=== PATIENT | male | born 1990 | race Caucasian/White ===

== ENCOUNTER → 2017-05-17 | Outpatient (CLI) | payer OTHER ==
[~2017-05-17] MED LIST: LEVO500T3 PO; MECL-68 PO
--- NOTE | 2017-05-17 12:28 | REP ---
Clinical: Shortness of breath times 9 days. Technique: PA and lateral views of the chest. Comparison: 10/04/2016. Findings: Left lower lobe consolidations and pleural effusion/reaction consistent with acute pneumonia and linear plate-like atelectasis. Right hemithorax is clear. Cardiac silhouette is normal. Skeletal structures are intact. Impression: Left lower lobe consolidations and pleural effusion/reaction as well as trace linear atelectasis. Findings compatible with multifocal pneumonia. Signed by Johnnie Vicente MD 05/17/2017 12:19 P
== END ==
LOC: M RAD 11:23
PROVIDERS: ATTEND Physician Assistant
DX: J90 Pleural effusion, not elsewhere classified (principal)

== ENCOUNTER → 2017-05-17 | Outpatient (REF) | payer OTHER | LOC: M LAB REF 15:15 | PROVIDERS: ATTEND Physician Assistant | DX: R19.7 Diarrhea, unspecified (principal) ==

== ENCOUNTER 2017-05-20 11:37 | Inpatient (IN) | payer OTHER ==
[~2017-05-20] VITALS: Ht 188 cm; Wt 127.3 kg
[2017-05-20] MEDS ORDERED: MECL-68 PO (11:59)
[2017-05-20] MEDS ORDERED: LEVO500T3 PO (11:59)
[2017-05-20] MEDS ORDERED: NS 1,000 ML IV ONE (12:45)
--- NOTE | 2017-05-20 13:25 | REP ---
Clinical: Altered mental status . Comparison: None . Findings: The ventricles, sulci, and cisterns are normal in position and appearance. Nix-white differentiation is maintained. No acute intracranial hemorrhage, mass/mass effect, pathology or trauma/injury. No evidence for acute infarction. No extra-axial fluid collection. Calvarium is intact. Paranasal sinuses and mastoid air cells are clear. Impression: Normal noncontrast head CT. No evidence for acute intracranial pathology or trauma/injury. Signed by Johnnie Vicente MD 05/20/2017 01:16 P
--- NOTE | 2017-05-20 13:35 | REP ---
Clinical: Shortness of breath. Findings: Large left pleural effusion with near complete collapse to the left lower lobe and trace left upper lobe atelectasis. The right hemithorax demonstrates trace right middle lobe and right lower lobe atelectasis. Visualized portions of the heart and pericardium appear normal. There is inflammatory stranding involving the anterior mediastinal fat as well as significant inflammatory stranding throughout the visualized upper abdomen with left upper lobe ascites. Findings appears centered around the retroperitoneum and pancreas suggesting acute pancreatitis. Impression: 1. Large left pleural effusion with near complete consolidation / collapse to the left lower lobe and trace left upper lobe, right middle lobe and right lower lobe atelectasis. 2. Inflammatory stranding in the anterior mediastinal fat and visualized upper abdomen as described above most compatible with acute pancreatitis. Signed by Johnnie Vicente MD 05/20/2017 01:26 P
[2017-05-20 13:44] LABS: DIFF SLIDE NUMBER 128; MEAN CORPUSCULAR HEMOGLOBIN 31.7 pg (27.0-33.0); MEAN CORPUSCULAR HGB CONC 36.2 g/dl (32.0-36.5); MEAN CORPUSCULAR VOLUME 87.8 fl (80.0-96.0); PLATELET COUNT, AUTOMATED 423 k/mm3 (150-450); RED CELL DISTRIBUTION WIDTH 12.4 % (11.5-14.5); WHITE BLOOD COUNT 23.8 K/mm3 (4.0-10.0)
[2017-05-20 13:57] LABS: ALBUMIN 2.3 GM/DL (3.2-5.2); ALBUMIN/GLOBULIN RATIO 0.55 (1.00-1.93); ALKALINE PHOSPHATASE 174 U/L (45-117); ALT/SGPT 42 U/L (12-78); ANION GAP 11 MEQ/L (8-16); AST/SGOT 39 U/L (15-37); BILIRUBIN,DIRECT 0.5 MG/DL (0.0-0.2); BILIRUBIN,TOTAL 1.6 MG/DL (0.2-1.0); BLOOD UREA NITROGEN 21 MG/DL (7-18); CARBON DIOXIDE LEVEL 30 MEQ/L (21-32); CHLORIDE LEVEL 78 MEQ/L (98-107); CREATININE FOR GFR 1.18 MG/DL (0.70-1.30); GLOMERULAR FILTRATION RATE > 60.0 (>60); GLUCOSE, FASTING 148 MG/DL (70-105); TOTAL PROTEIN 6.5 GM/DL (6.4-8.2)
[2017-05-20 14:00] LABS: EOS % 0.3 % (0.0-3.0); LYMPH % 2.5 % (24.0-44.0); MONO % 4.8 % (0.0-5.0); NEUTROPHILS % 90.6 % (36.0-66.0)
[2017-05-20] MEDS ORDERED: HEPARIN SOD (PORCINE) 5000 UNITS/ML VIAL SC SCH (14:00)
[2017-05-20 14:01] LABS: ADD MANUAL DIFFER NO; ADD MORPHOLOGY? NO; BASO # 0.2 K/mm3 (0.0-0.2); BASO % 0.9 % (0.0-1.0); EOS # 0.1 K/mm3 (0.0-0.50); LARGE UNSTAINED CELL # 0.2 K/mm3 (0.0-0.4); LARGE UNSTAINED CELL % 0.8 % (0.0-4.0); LYMPH # 0.6 K/mm3 (1.5-6.5); MONO # 1.1 K/mm3 (0.0-0.8); NEUTROPHILS # 20.7 K/mm3 (1.8-7.7)
[2017-05-20 14:29] LABS: SODIUM LEVEL 119 MEQ/L (136-145)
[2017-05-20 14:30] LABS: POTASSIUM SERUM 2.3 MEQ/L (3.5-5.1)
[2017-05-20 14:43] LABS: METHADONE URINE NEGATIVE (NEGATIVE)
[2017-05-20] MEDS ORDERED: VANCOMYCIN 1000 MG/20 ML VIAL (J3370) IP ONE (14:45)
[2017-05-20] MEDS ORDERED: PIPERACILLIN/TAZOBACTAM SOD 4.5 GM in D5W MINI-BAG PLUS 50 ML IV ONE (14:45)
[2017-05-20] MEDS ORDERED: POTASSIUM CHLORIDE 10 MEQ SR TABLET PO ONE ×2 (14:45→17:00)
[2017-05-20] MEDS ORDERED: KCL 10MEQ IN 100ML SWI (KRUN) 10 MEQ in APPROPRIATE DILUENT 1 EA IV ONE ×2 (14:45)
[2017-05-20 15:12] LABS: AMYLASE 84 U/L (25-115)
[2017-05-20 15:33] LABS: OSMOLALITY SERUM 263 MOSM/KG (275-295)
[2017-05-20] MEDS ORDERED: VANCOMYCIN HCL 1,000 MG, VIAL MATE ADAPTER 1 EACH in D5W 250 ML IV ONE (16:00)
[2017-05-20] MEDS ORDERED: NS 1,000 ML IV SCH (16:29)
[2017-05-20] MEDS ORDERED: ONDANSETRON 4MG/2ML VIAL (J2405) IV PRN (16:30)
[2017-05-20] MEDS ORDERED: KCL 20MEQ IN 100ML SWI (KRUN) 20 MEQ in APPROPRIATE DILUENT 1 EA IV ONE ×2 (17:00)
[2017-05-20] MEDS: ACETAMINOPHEN TAB 650MG DOSE (2X325MG) PO PRN (17:14)
[2017-05-20 17:59] LABS: ANION GAP 13 MEQ/L (8-16); BLOOD UREA NITROGEN 20 MG/DL (7-18); CALCIUM LEVEL 7.5 MG/DL (8.5-10.1); CARBON DIOXIDE LEVEL 27 MEQ/L (21-32); CHLORIDE LEVEL 84 MEQ/L (98-107); CHOLESTEROL LEVEL 78 MG/DL (<200); CREATININE FOR GFR 0.97 MG/DL (0.70-1.30); GLOMERULAR FILTRATION RATE > 60.0 (>60); GLUCOSE, FASTING 132 MG/DL (70-105); MAGNESIUM LEVEL 2.5 MG/DL (1.8-2.4); POTASSIUM SERUM 2.8 MEQ/L (3.5-5.1); SODIUM LEVEL 124 MEQ/L (136-145); T UPTAKE 38 % (33-40); THYROXINE (T4) 7.9 UG/DL (4.5-12.0); TRIGLYCERIDES LEVEL 110 MG/DL (<150)
[2017-05-20] MEDS ORDERED: KCL 10MEQ IN 100ML SWI (KRUN) 100 ML IV SCH ×2 (18:00→19:00)
[2017-05-20 18:05] VITALS: BP 126/76
[2017-05-20 18:10] LABS: OSMOLALITY URINE 588 MOSM/KG (500-800)
[2017-05-20 18:10] LABS: OSMOLALITY SERUM 258 MOSM/KG (275-295)
[2017-05-20] MEDS: AZITHROMYCIN INJ 500 MG, VIAL MATE ADAPTER 1 EACH in D5W 250 ML IV SCH (18:50)
[2017-05-20 20:00] VITALS: PULSE 118
[2017-05-20 20:17] VITALS: BP 128/73
--- NOTE | 2017-05-20 21:27 | CR ---
DATE OF CONSULTATION: 05/20/2017 REQUESTING PHYSICIAN: Dr. Brock Cr from emergency room. REASON FOR CONSULTATION: Management of symptomatic hyponatremia. CHIEF COMPLAINT: The patient presented to the emergency room with confusion, altered mental status, and recent diagnosis of pneumonia. HISTORY OF PRESENT ILLNESS: ePdrito Chaudhari is a 26-year-old male with no significant past medical history. The patient does not have any primary care physician. He was otherwise healthy. He recently started working in road maintenance. The patient started feeling unwell about a week ago with fevers, some shortness of breath, and chills. He presented to the urgent care center and x-ray done on 05/17/2017, showed that the patient had multifocal pneumonia, and left pleural effusion. The patient was given Levaquin from urgent care center, and he was sent home. However, after starting the antibiotic, his symptoms did not improve. The patient got more lethargic, confused and obtunded. He was brought to the emergency room by his mother. On arrival in the emergency room, the patient was found to be septic with a white cell count of 23.8, a lactate of 2.3, and he was found to have a sodium level of 119 with a potassium of 2.3. Emergency room physician, Dr. Brock Cr , contacted me with these abnormal labs. The patient was discussed over the phone. After the discussion, the patient was given a bolus of normal saline one liter intravenous (IV) and started on broad-spectrum antibiotics and IV and oral potassium repletion was started. The patient required my immediate attention. I emergently saw the patient in the emergency room. When I saw the patient, he was able to provide his history and he was in mild respiratory distress. The patient was found to have a large left-sided pleural effusion on the CT scan of the chest with a near-complete collapse of the left lower lobe. He is otherwise hemodynamically stable at this time and he has sinus tachycardia. PAST MEDICAL HISTORY: No significant past medical history. He does not have a primary care physician. PAST SURGICAL HISTORY: The patient had grommet insertions in the ear because of otitis media when he was a child; otherwise, no other significant past surgical history. ALLERGIES: No known drug allergies. HOME MEDICATIONS: The patient was taking Levaquin 500 mg by mouth daily since 05/17/2017, and meclizine 25 mg by mouth every six hours for dizziness. FAMILY HISTORY: No significant family history of any kidney disease or end-stage renal disease requiring hemodialysis. SOCIAL HISTORY: The patient denies any smoking, illicit drug abuse or alcohol abuse. He recently started working in the [employer] department. REVIEW OF SYSTEMS: CONSTITUTIONAL: The patient reports chills, weakness, dizziness. EYES: He denies any blurry vision or double vision. ENT: The patient reports history of ear infections and dizziness. He denies any dysphagia or odynophagia. CARDIOVASCULAR: The patient reports palpitations. He denies any chest pain. RESPIRATORY: The patient reports cough and shortness of breath. GASTROINTESTINAL (GI): He denies any nausea, vomiting or constipation. GENITOURINARY (): The patient reports increased frequency of urine but he denies any dysuria or hematuria. MUSCULOSKELETAL: He denies any muscle aches and pains. CENTRAL NERVOUS SYSTEM (UNIFORM FORCE CAPTAIN): He denies any history of seizures or stroke, but he does report dizziness. PSYCHOLOGIC: He denies any history of anxiety or depression. SKIN: He denies any rashes or ulcers. ENDOCRINE: He denies any polyuria, hyperthyroidism or hypothyroidism. HEMATOLOGIC/ONCOLOGIC: The patient denies any history of easy bruising or anemia or bleeding. All other review of systems is negative. PHYSICAL EXAMINATION: GENERAL: The patient is awake, alert, oriented times three lying in bed in mild respiratory distress at this time. VITAL SIGNS: Temperature is 100.6 degrees Fahrenheit, blood pressure is 126/76, pulse is 112, respiratory rate of 24, saturating 92% on nasal cannula at two liters. HEAD/NECK: Extraocular muscles intact. Pupils equal, round, and reactive to light. The patient has erythema on the face. Mucous membranes are moist. Neck is supple. The is no jugular venous distention (JVD). CARDIOVASCULAR: S1, S2. Tachycardia. No murmur, rub, or gallop. RESPIRATORY: The patient has decreased breath sounds on the left side, especially on the left lower and middle lung zones. He has bronchial breath sounds on the left side. There is decreased vocal resonance on the left side as well. GI: Abdomen is soft. Positive bowel sounds. Nontender. No ascites, no organomegaly. GENITOURINARY: No rashes or ulcerations. MUSCULOSKELETAL: Extremities have 2+ pulses. No edema. No cyanosis of the extremities. UNIFORM FORCE CAPTAIN: No focal neurological deficit. Power is 5/5 in all extremities. PSYCHIATRIC: Normal mood and affect. SKIN: No rashes or ulcerations. LYMPHATIC: No significant cervical, axillary or inguinal lymphadenopathy. LABORATORY DATA: CBC showed a WBC of 23.8, hemoglobin 14.8, platelets are 423. Urinalysis showed 1+ protein, negative nitrites, negative leukocyte esterase. Urine random osmolarity was 588. Random sodium was less than 10. Free cortisol is pending. BMP showed sodium 119, potassium 2.3, chloride 78, bicarbonate 30, BUN 21, creatinine is 1.18. Serum osmolarity 263. Lactic acid was 2.3. Calcium is 8. Total bilirubin 1.6. Alkaline phosphatase is 174. Albumin 2.3. Lipase is 578. TSH is 4.7. Free T4 is three. T3 is 38. Baseline cortisol is pending. Toxicology: Salicylate is negative. Urine opiates are positive. Rest of the toxicology is negative. MICROBIOLOGY: Blood cultures, urine culture and respiratory viral panel is pending. Influenza is negative. IMAGING: A CT of the head done today showed no evidence of acute intracranial pathology. A CT of the chest showed large left pleural effusion with near-complete consolidation or collapse of left lower lobe. Inflammatory stranding in the anterior mediastinal fat and visualized upper abdomen, compatible with acute pancreatitis. ASSESSMENT: A 26-year-old male with no significant past medical history admitted this time with left-sided pneumonia with a large left-sided pleural effusion, possible pancreatitis, and symptomatic hyponatremia. PLAN: 1. Hypovolemic, hypotonic, hyponatremia with high urine osmolarity, very low urine sodium. The patient was already given one liter normal saline in the emergency room and started on IV normal saline. His sodium corrected from 119 to 124. I am going to stop the IV fluids at this time. I am expecting that with IV fluid hydration, his sodium is going to correct. The patient is otherwise hemodynamically stable. No need of further IV fluid hydration. Continue to monitor the basic metabolic profile (BMP) every six hours for the sake of completion. We have checked the thyroid stimulating hormone (TSH) which is within the acceptable limit. Cholesterol levels are also acceptable. Baseline cortisol and a.m. cortisol levels are pending. 2. Sepsis secondary to left-sided pneumonia and parapneumonic effusion. The patient was given normal saline IV. He has been started on azithromycin, Zosyn and vancomycin for broad-spectrum coverage including atypicals. Cultures have already been sent. 3. Left left-sided pleural effusion. The patient is pending evaluation by cardiothoracic (CT) surgery for possible placement of chest tube. The rest of the management is as per CT surgery. Pleural fluid analysis and studies will be done after chest tube is placed. 4. Hypokalemia. The patient was given IV and oral potassium. Management of hypokalemia would also help with hyponatremia. Continue to monitor BMP every six hours and we shall replete potassium as needed. He will need at least 100 mEq of potassium over the next 24 hours. 5. Possible pancreatitis: Cont IV fluid. NPO. Pain management. 6. Hypermagnesemia. Magnesium level is 2.5 which is acceptable at this time. Magnesium is expected to improve with improvement of sepsis and hypovolemia. Thank you for involving us in the care of this patient. I shall be happy to follow the patient along with you tomorrow morning. JONOD
--- NOTE | 2017-05-20 21:28 | ECGEPIP ---
Stationary ECG Study [facility] - ED Test Date: 2017-05-20 Pat Name: FLYNN DUBOSE Department: Room: - Gender: M [employer] Architect: SHANON : 1990 Requested By: PERRY Barboza Order Number: [id number] Reading MD: Tania Moe Measurements Intervals [place] Rate: 116 P: MI: 0 QRS: 7 QRSD: 128 T: 122 QT: 373 QTc: 519 Interpretive Statements SINUS TACHYCARDIA LEFT VENTRICULAR HYPERTROPHY AND ST-T CHANGE SEPTAL CHANGES CLINICAL CORRELATION NO PRIOR FOR COMPARISON Electronically Signed On 05-20-2017 21:28:39 EDT by Tania Moe
[2017-05-20 21:35] LABS: ANION GAP 12 MEQ/L (8-16); BLOOD UREA NITROGEN 22 MG/DL (7-18); CALCIUM LEVEL 8.1 MG/DL (8.5-10.1); CARBON DIOXIDE LEVEL 27 MEQ/L (21-32); CHLORIDE LEVEL 84 MEQ/L (98-107); CREATININE FOR GFR 1.07 MG/DL (0.70-1.30); GLOMERULAR FILTRATION RATE > 60.0 (>60); GLUCOSE, FASTING 147 MG/DL (70-105); POTASSIUM SERUM 2.4 MEQ/L (3.5-5.1); SODIUM LEVEL 123 MEQ/L (136-145)
--- NOTE | 2017-05-20 22:07 | HPE ---
DATE OF ADMISSION: 05/20/2017 PRIMARY CARE PHYSICIAN: Patient does not have a primary care physician. CHIEF COMPLAINT: Shortness of breath, diarrhea, altered mental status. HISTORY OF PRESENT ILLNESS: Mr. Chaudhari is a 26-year-old male with no past medical history who presented to the emergency room (ER) due to experiencing shortness of breath, diarrhea and altered mental status. Patient expressed that his symptoms started on Monday when he noticed that he was more out of breath. Patient denies coughing, productive of sputum. Patient also expressed that he felt more fatigued and tired. Patient went to urgent care on Monday, where he was diagnosed with pneumonia and was started on Levaquin 500 mg by mouth daily. Also, patient was started on meclizine 25 mg by mouth every 6 hours as needed, since patient felt mild dizziness and lightheadedness. Patient expressed on morning, he was not himself and he had one episode of hallucinating, when he thought he heard a noise and thought somebody was in the kitchen; however, nobody was in the kitchen. Patient's confusion was increased since and this morning, patient was moving his hands and reaching for stars. Since , patient was making some comments to his mother which indicated that patient had altered mental status. Patient does not know if he had fever; however, patient did not have chills or night sweats. Patient did not have nausea or vomiting. Patient tried to keep himself hydrated and was tolerating orals; however, patient had lost his appetite. Patient did not have seizure- like activities, loosing consciousness. Patient denied vision or hearing changes. Patient did not have any sick contacts. Patient also expressed that since Monday, he has been having diarrhea, about two episodes per day. Patient is currently with loose stool; however, patient denies noticing hematochezia. Patient also expressed that his shortness of breath increases with laying down flat; however, decreases with sitting upright. ALLERGIES: No known allergies. HOME MEDICATIONS: - Levaquin 500 mg by mouth for 10 days - meclizine 25 mg by mouth every 6 hours by mouth as needed for dizziness PAST MEDICAL HISTORY: None. PAST SURGICAL HISTORY: Ear tubing at age 1. SOCIAL HISTORY: Patient lives with his girlfriend. Patient has no children. Patient has not traveled outside the [place]. Patient works for the [employer], works on the [employer]. Patient has no pets. Patient does not drink alcoholic beverages. Patient does not smoke cigarettes; however, patient had chewed tobacco but has stopped chewing tobacco four months ago. Patient was chewing tobacco about five years. One can lasted him a month. FAMILY HISTORY: Patient has one sister who has been on a steroid and antibiotic due to respiratory infection. Patient's father has been diagnosed with hypertension, hyperlipidemia and diabetes. Patient's mother is healthy. REVIEW OF SYSTEMS: GENERAL: Patient denies chills, night sweats. Patient does not know if he had fever. Patient denies weight loss, weight gain. HEENT: Patient denies acute vision or hearing changes. Patient denies problems with chewing food, sinusitis. NECK: Patient denies lumps, bumps, or decreased range of motion of his neck. HEART: Patient denies palpitations, racing or skipping heartbeat or chest pain. LUNGS: Patient expressed that he has been having dyspnea. This is increased with laying down flat and decreased with sitting position. ABDOMEN: Patient denies nausea, vomiting, constipation. Patient has had diarrhea since Monday, about two episodes of loose stool; however, patient denies hematochezia or melena. NEUROLOGIC: Patient denies history of transient ischemic attack (TIA) or seizure-type activities. PHYSICAL EXAMINATION: VITAL SIGNS: Temperature 98.4, pulse 127, respiratory rate 18, blood pressure 136/66, pulse oximetry 93% on room air. GENERAL APPEARANCE: Patient was lying in bed in acute distress. Patient was awake, alert, and oriented to time, person and place. HEENT: Normocephalic, atraumatic. Pupils were equal and reactive to light. Oral mucosa was moist. Patient's has erythema on his face, which, according to his mom, this is a chronic issue due to patient working outside for long hours. NECK: No lymphadenopathy. No thyromegaly. No jugular venous distention (JVD). HEART: Regular rate and rhythm, normal S1, S2. LUNGS: Patient has diminished breath sounds bilaterally at the base of the lungs. ABDOMEN: Soft, nontender. Positive bowel sounds in all quadrants. EXTREMITIES: No lower extremity edema. +2 pulses in both lower extremities. Normal range of motion both upper and lower extremities. NEUROLOGIC: Cranial nerves II-XII were intact. No focal deficiencies. LABORATORY DATA: White blood cells 23.8, red blood cells 4.66, hemoglobin 14.8, hematocrit 40.9, MCV 87.8, MCH 31.7, MCHC 36.2, RDW 12.4, platelet count 243, neutrophil percentage 98.6, lymphocyte percentage 2.5, monocyte percentage 4.8, eosinophil percentage 0.3, basophil percentage 0.9, leukocyte percentage 0.8. Sodium 119, potassium 2.3, chloride 78, carbon dioxide 30, anion gap 11, BUN 21, creatinine 1.18, glomerular filtration rate more than 60, fasting glucose 148, Osmolality 263. Lactic acid 2.3. Calcium 8. Total bilirubin 1.6, direct bilirubin 0.8, AST 39, ALT 42. Total creatinine kinase 114. CK-MB 0.1. CK-MB rel index 0.87. Troponin-I less than 0.02. Total protein 6.5, albumin 2.3, amylase 84, lipase 578. TSH 4.720. Urinalysis (UA): Urine color yellow, urine appearance clear, urine pH 6, urine specific gravity 1.018, urine protein 1+, urine glucose negative, urine ketones trace, urine blood negative, urine nitrate negative, urine bilirubin negative, urine bilinogen 0.3, urine leukocyte esterase negative, urine white blood cells 7, urine red blood cells 2, urine hylan casts 0, urine bacteria negative, urine squamous epithelial cells 0. TOXICOLOGY: Salicylate level less than 1.7. Urine opiate screen positive. Urine methadone screen negative. Acetaminophen less than 2. The rest of the panel was negative. Blood culture is pending. Urine culture is pending. IMAGING TECHNIQUES: CT of the head shows normal, noncontrast head CT. No evidence of acute intracranial pathology or trauma injury. Chest x-ray shows large left pleural effusion with near complete consolidation/ collapse to the left lower lobe and trace left upper lobe, right middle lobe and right lower lobe atelectasis. Also, is indicated, inflammatory stranding in the anterior mediastinal fat and visualized upper abdomen is compatible with acute pancreatitis. ASSESSMENT AND PLAN: 1. Shortness of breath. This is possibly secondary to atypical pneumonia. CT of the chest indicated large left pleural effusion. We have consulted Dr. Kat. We made the patient nothing by mouth (n.p.o.) due to possibility of procedure, including chest tube. At this time, we have started patient on azithromycin and Zosyn due to possibility of atypical pneumonia. Also, we have ordered a sputum gram and culture, as well as a respiratory panel. Blood culture is pending at this time. Also, I have ordered a urine strip pneumonia, as it has Legionella antigen urine and the result is pending. 2. Hyponatremia. This could be secondary to syndrome of inappropriate anti-diuretic hormone (SIADH) vs. endocrine. Dr. Flores has been consulted. We have ordered urine and blood osmolality, as it has urine sodium and results are pending. Also, we have ordered cortisol urine and serum as well as a.m. cortisol and the results are pending at this time. Patient has received 1 liter of normal bolus at emergency room (ER). At this time, we have started patient on normal saline at the rate of 80. Also, we will check basic metabolic panel every 4 hours and for evaluating increasing of the sodium level. Also, we have made the patient nothing by mouth. 3. Elevated lactic acid. At the ER, patient's lactic acid was elevated (2.3). SOFA indicated low possibility of sepsis; however, at this time, patient is on intravenous (IV) antibiotics. Also, we have started patient on IV fluids. Lactic acid will be repeated again in four hours. I believe this is secondary to stress and dehydration. 4. Hypokalemia. This could be secondary to diarrhea. At this time, we are providing patient with potassium supplements. We are rechecking the potassium level again. 5. Deep venous thrombosis (DVT) prophylaxis. At this time, we have started patient on thromboembolitic deterrents (TEDs) and sequentials due to the possibility of procedure; however, after procedure, patient can be started on anticoagulation. 6. Pancreatitis. CT findings indicated possibility of pancreatitis. Patient also has elevated lipase (578). However, patient is asymptomatic at this time. Patient is nothing by mouth and on IV fluids. We will repeat the lipase again tomorrow. This could be secondary to infection. 7. Elevated thyroid stimulating hormone (TSH). We will repeat a TSH again. Also, we will repeat a thyroid panel. No medication is required. My preceptor for this patient encounter was Dr. Grover. The preceptor was physically present in the building during the encounter and was fully available as needed. All aspects of the patient interview, examination, medical decision-making process, and medical care plan development were reviewed and approved by the preceptor. The preceptor is aware and concurs with the plan as stated in the body of this note and will attest to such by his/her co-signature. I have seen and examined the patient, and discussed the case with the resident. I agree with the following assessment mentioned above. RJ
[2017-05-20] MEDS: PIPERACILLIN/TAZOBACTAM SOD 3.375 GM in D5W MINI-BAG PLUS 50 ML IV SCH (23:19)
[2017-05-20 23:36] VITALS: BP 135/72
[2017-05-21] VITALS: PULSE 112
[2017-05-21] MEDS: ACETAMINOPHEN TAB 650MG DOSE (2X325MG) PO PRN ×2 (00:02→08:10)
[2017-05-21 01:13] LABS: ANION GAP 11 MEQ/L (8-16); BLOOD UREA NITROGEN 19 MG/DL (7-18); CARBON DIOXIDE LEVEL 29 MEQ/L (21-32); CHLORIDE LEVEL 86 MEQ/L (98-107); CREATININE FOR GFR 1.03 MG/DL (0.70-1.30); GLOMERULAR FILTRATION RATE > 60.0 (>60); GLUCOSE, FASTING 183 MG/DL (70-105); POTASSIUM SERUM 2.6 MEQ/L (3.5-5.1); SODIUM LEVEL 126 MEQ/L (136-145)
[2017-05-21] MEDS ORDERED: POTASSIUM CHLORIDE 10 MEQ SR TABLET PO ONE (01:45)
[2017-05-21] MEDS: KCL 10MEQ IN 100ML SWI (KRUN) 10 MEQ in APPROPRIATE DILUENT 1 EA IV SCH ×12 (02:01→11:06)
[2017-05-21 04:00] VITALS: PULSE 107
[2017-05-21] MEDS: PIPERACILLIN/TAZOBACTAM SOD 3.375 GM in D5W MINI-BAG PLUS 50 ML IV SCH (04:30)
[2017-05-21 04:41] VITALS: BP 131/87
[2017-05-21 05:18] LABS: ADD MANUAL DIFFER YES; DIFF SLIDE NUMBER 55; MEAN CORPUSCULAR HEMOGLOBIN 31.8 pg (27.0-33.0); MEAN CORPUSCULAR HGB CONC 35.9 g/dl (32.0-36.5); MEAN CORPUSCULAR VOLUME 88.7 fl (80.0-96.0); PLATELET COUNT, AUTOMATED 388 k/mm3 (150-450); RED CELL DISTRIBUTION WIDTH 12.3 % (11.5-14.5); WHITE BLOOD COUNT 22.5 K/mm3 (4.0-10.0)
[2017-05-21 05:34] LABS: ALBUMIN/GLOBULIN RATIO 0.49 (1.00-1.93); ALKALINE PHOSPHATASE 165 U/L (45-117); ALT/SGPT 44 U/L (12-78); AST/SGOT 43 U/L (15-37); BILIRUBIN,TOTAL 1.5 MG/DL (0.2-1.0); BLOOD UREA NITROGEN 18 MG/DL (7-18); CALCIUM LEVEL 8.3 MG/DL (8.5-10.1); CARBON DIOXIDE LEVEL 30 MEQ/L (21-32); CHLORIDE LEVEL 87 MEQ/L (98-107); CREATININE FOR GFR 1.02 MG/DL (0.70-1.30); GLOMERULAR FILTRATION RATE > 60.0 (>60); GLUCOSE, FASTING 137 MG/DL (70-105); MAGNESIUM LEVEL 2.2 MG/DL (1.8-2.4); TOTAL PROTEIN 6.1 GM/DL (6.4-8.2)
[2017-05-21 05:40] LABS: ANION GAP 8 MEQ/L (8-16); SODIUM LEVEL 125 MEQ/L (136-145)
[2017-05-21 05:43] LABS: POTASSIUM SERUM 4.2 MEQ/L (3.5-5.1)
[2017-05-21 06:09] LABS: BANDS 5 % (< 11); BASOPHILS 1 % (0-4); EOSINOPHILS 2 % (0-5)
[2017-05-21 06:11] LABS: TOXIC GRANULATION 2+; TOXIC VACUOLATION 1+
[2017-05-21 07:30] VITALS: BP 133/79
[2017-05-21] MEDS: POTASSIUM CHLORIDE 10 MEQ SR TABLET PO SCH ×3 (08:09→17:38)
[2017-05-21] MEDS: MEROPENEM INJ 1 GM in D5W MINI-BAG PLUS 100 ML IV SCH ×2 (08:10→16:03)
[2017-05-21 08:47] LABS: ANION GAP 9 MEQ/L (8-16); BLOOD UREA NITROGEN 18 MG/DL (7-18); CALCIUM LEVEL 8.4 MG/DL (8.5-10.1); CARBON DIOXIDE LEVEL 29 MEQ/L (21-32); CHLORIDE LEVEL 87 MEQ/L (98-107); CREATININE FOR GFR 1.03 MG/DL (0.70-1.30); GLOMERULAR FILTRATION RATE > 60.0 (>60); GLUCOSE, FASTING 138 MG/DL (70-105); SODIUM LEVEL 125 MEQ/L (136-145)
[2017-05-21] MEDS: VANCOMYCIN HCL 1,000 MG, VIAL MATE ADAPTER 1 EACH in D5W 250 ML IV SCH ×3 (09:57→20:36)
[2017-05-21] MEDS ORDERED: VANCOMYCIN HCL 1,000 MG, VIAL MATE ADAPTER 1 EACH in D5W 250 ML IV ONE (10:00)
[2017-05-21] MEDS ORDERED: MIDAZOLAM INJ 2 MG/2 ML VIAL (J2250) As Ordered ONE (11:38)
[2017-05-21] MEDS ORDERED: LIDOCAINE 1% MDV 20ML VIAL As Ordered ONE ×2 (11:39→11:54)
--- NOTE | 2017-05-21 12:47 | REP ---
Clinical: Status post chest tube placement. Comparison 05/17/2017. Findings: Left-sided chest tube overlies the mid lung zone. Left lower lobe opacities are appreciated and small pneumothorax cannot be excluded. Trace right basilar atelectasis. No pneumothorax. Impression: Left-sided chest tube with decreased left mid to lower lobe opacities and possible small left pneumothorax. Signed by Johnnie Vicente MD 05/21/2017 12:39 P
[2017-05-21] MEDS: KCL 20MEQ in NS 1000ML 1,000 ML IV SCH (12:55)
[2017-05-21] MEDS ORDERED: LIDOCAINE 1% MDV 20ML VIAL SC ONE (13:00)
[2017-05-21] MEDS ORDERED: MIDAZOLAM INJ 2 MG/2 ML VIAL (J2250) IV ONE (13:00)
[2017-05-21] MEDS ORDERED: LEVALBUTEROL 1.25 MG/0.5 ML CONCENTRATE NEB NEB PRN (13:15)
[2017-05-21 13:20] LABS: ANION GAP 9 MEQ/L (8-16); BLOOD UREA NITROGEN 16 MG/DL (7-18); CALCIUM LEVEL 8.1 MG/DL (8.5-10.1); CARBON DIOXIDE LEVEL 27 MEQ/L (21-32); CHLORIDE LEVEL 91 MEQ/L (98-107); CREATININE FOR GFR 0.92 MG/DL (0.70-1.30); GLOMERULAR FILTRATION RATE > 60.0 (>60); GLUCOSE, FASTING 144 MG/DL (70-105); POTASSIUM SERUM 3.4 MEQ/L (3.5-5.1); SODIUM LEVEL 127 MEQ/L (136-145)
[2017-05-21] MEDS: LEVALBUTEROL 1.25 MG/0.5 ML CONCENTRATE NEB NEB SCH ×2 (13:28→20:00)
[2017-05-21 13:58] LABS: LDH, BODY FLUID 938 U/L (NOT ESTABLISHED); TOTAL PROTEIN, BODY FLUID 3.8 G/DL (NOT ESTABLISHED)
[2017-05-21 14:04] LABS: BF DIFF IF INDICATED? YES (NO); RBC PLEURAL FLUID 11 (<10mm3 cells/uL); TNC PLEURAL FLUID 4456 cells/uL (0-20)
--- NOTE | 2017-05-21 14:25 | PHACANCOPD ---
PHARMACY VANCOMYCIN DOSING Pt Demographics Demographics Patient Age:26 , Weight:129.500 , Gender: male Adjusted Body Weight Date: 05/21/17, Adjusted Body Weight: Kg Events Past 24 Hours Events Past 24 Hours: YES: Fever, Elevation in WBC, NO: Dialysis, Diuretic Therapy, Change in CrCl, Pending Diagnostics, Pending Procedures, Other Vancomycin Vancomycin indication: HCAP Vancomycin Target Ranges: 15-20 mcg/ml Vancomycin Load Y/N: Yes Load Dose Date Time Vancomycin Load Dose: 2000mg Date: 05/21/17 Time: 900 Vancomycin Dose Date: 05/21/17. Current Vancomycin Dose: [1gm IV q6h@09] Intermittent Dosing?: No Labs Labs Item Value Date Time Potassium Level 2.6 MEQ/L *L 05/21/17 0038 Potassium Level 3.4 MEQ/L L 05/21/17 1251 Sodium Level 126 MEQ/L L 05/21/17 0038 Sodium Level 127 MEQ/L L 05/21/17 1251 Creatinine 1.03 MG/DL 05/21/17 0809 Creatinine 0.92 MG/DL 05/21/17 1251 Lactic Acid Level 1.7 MMOL/L 05/21/17 0809 White Blood Count 23.8 K/mm3 H 05/20/17 1309 White Blood Count 22.5 K/mm3 H 05/21/17 0430 Vital Signs Label Value Date Time Patient Temperature 101.5 degrees F 05/21/17 0730 Temperature Source Temporal 05/21/17 0730 Micro Microbiology 05/20/17 Blood Culture - Preliminary, Resulted No growth after 24 hours . All specim... 05/20/17 Blood Culture - Preliminary, Resulted No growth after 24 hours . All specim... 05/21/17 Acid Fast Stain, Received Pending 05/21/17 Mycobacterial Culture, Received Pending 05/21/17 Fungal Smear, Received Pending 05/21/17 Fungal Culture, Received Pending 05/21/17 Gram Stain, Received Pending 05/21/17 Anaerobic Culture, Received Pending 05/21/17 Body Fluid Culture, Received Pending 05/20/17 Influenza Virus Type A Antigen - Final, Complete 05/20/17 Influenza Virus Type B Antigen - Final, Complete 05/20/17 Respiratory Virus Panel (PCR) (JORGE) - Final, Complete 05/20/17 Urine Culture - Final, Complete Creatinine Clearance Date:05/21/17. Creatinine Clearance: . Assessment and Plan Maintaining Current Dose?: Yes Reason for dose change: No Dose Change Pharmacist Note Pharmacist Note Date: 05/21/17. Pharmacist note: Patient was brought to the Emergency Department by his mother for increased mental status. Monday he presented to an Urgent Care for increased SOB, diarrhea, altered mental status, and increased fatigue. He was given Levaquin and Meclizine and discharged home. Since then his mental status as decreased with experiencing hallucinations. He has no significant past medical history. His chest XRay showed a large pleural effusion with a near collapsed left lung. Also showed possible pancreatitis. He currently has blood and pleural fluid cultures pending, and his urine culture and respiratory panel was negative. He had a chest tube placed today by Dr. Kat as well. He is currently on Zithromax, Meropenem, and Vancomycin for the treatment of his pneumonia. He has no history of MRSA or Vancomycin use at our facility. The patient was loaded with Vancomycin 2000mg, then continued on 1000mg IV q6h for now. We will continue to monitor and make adjustments as necessary. SUZANNE MARTINEZ PHARMACY May 21, 2017 14:25
[2017-05-21 14:42] LABS: CC BF DIFF EXAM CYTOCENTRIFUGE
[2017-05-21] MEDS: PERCOCET 5MG/325MG TAB PO PRN ×2 (14:50→20:36)
--- NOTE | 2017-05-21 14:55 | IPNPDOC ---
Text Note Date of Service The patient was seen on 05/21/17. NOTE Subjective: Patient is a 26 year old male with no PMHx who presented to the ER with shortness of breath, diarrhea and confusion. Patient's family and girlfriend has provided details to his history. They have mentioned that he had nausea and vomiting that started on 05/13 that improved and then progressed to diarrhea and shortness of breath on 05/15. By 05/16 he had gone to the urgent care and received antibiotics, Levaquin. He began to have some confusion at home and was brought into the ER for further evaluation. He was found to have several electrolyte abnormalities, and bilateral infiltrate with effusions on chest CT. He was admitted to the hospitalist service for sepsis. Patient was seen and examined at the bedside. Currently he is no longer confused. Is feeling generally better, but still has some shortness of breath. Objective: Vitals (See below) General: Lying in bed, no acute distress, comfortable, AAOx3 HEENT: NC, AT CVS: Tachycardic, Regular rhythm, +S1S2 Lungs: Decreased lung sounds at left lung field Abdomen: Soft, ND, NT, +BSx4 Extremities: +PPx4, - Edema, - Calf tenderness Assessment and plan: 1. Acute hypoxic respiratory failure - likely 2/2 atypical pneumonia with parapneumonic effusion - Presented with SOB and failure of outpatient therapy with Levaquin - Physical with decreased breath sounds at left lung field - Leukocytosis unchanged, will follow CRP - CT chest 05/20: large left pleural effusion with complete consolidation / collapse of LLL and trace HILDA, RML and RLL atelectasis - Dr. Kat on consult for likely chest tube placement - c/w Meropenem / Azithromycin / Vancomycin; s/p Zosyn 2. s/p Acute Metabolic Encephalopathy 3. Hyponatremia - likely 2/2 hypovolemic, hypotonic, hyponatremia - Sodium has been improving appropriately - c/w BMP [id number] to ensure slow rate of rise - Fluid management by Nephrology - Dr. Flores (Nephrology) on consult 3. s/p Lactic acidosis 4. Hypokalemia - will c/w Supplementation 5. Possible pancreatitis - less likely - Clinically no abdominal pain, nausea or vomiting - Physical without any abdominal tenderness - Lipase not elevated to >3x ULN; mild elevation likely 2/2 nausea and vomiting - CT imaging consistent with pancreatitis - Will advance diet as tolerated 6. Elevated TSH - Will need to be repeated in 6 weeks 7. DVT prophylaxis - c/w SCDs VS,Fishbone, I+O VS, Fishbone, I+O Laboratory Tests 05/20/17 17:04 05/20/17 20:38 Calcium Level 8.1 L 05/21/17 00:38 Calcium Level 8.0 L 05/21/17 04:30 Calcium Level 8.3 L, Red Blood Count 4.23 L, Mean Corpuscular Volume 88.7, Mean Corpuscular Hemoglobin 31.8, Mean Corpuscular Hemoglobin Concent 35.9, Red Cell Distribution Width 12.3, Aspartate Amino Transf (AST/SGOT) 43 H, Alanine Aminotransferase (ALT/SGPT) 44, Alkaline Phosphatase 165 H, Total Bilirubin 1.5 H, Total Protein 6.1 L, Albumin 2.0 L 05/21/17 08:09 Calcium Level 8.4 L 05/21/17 12:51 Calcium Level 8.1 L Vital Signs Date Time Temp Pulse Resp B/P (MAP) Pulse Ox O2 Delivery O2 Flow Rate FiO2 05/21/17 11:45 Nasal Cannula 2.0 05/21/17 07:30 101.5 112 18 133/79 (97) 96 I&O- Last 24 Hours up to 6 AM 05/21/17 06:00 Intake Total 2200 ml Output Total 300 ml Balance 1900 ml MICHELE GONZALES MD May 21, 2017 14:55
[2017-05-21 16:00] VITALS: BP 128/74
[2017-05-21 17:05] LABS: ANION GAP 8 MEQ/L (8-16); BLOOD UREA NITROGEN 14 MG/DL (7-18); CARBON DIOXIDE LEVEL 28 MEQ/L (21-32); CHLORIDE LEVEL 91 MEQ/L (98-107); CREATININE FOR GFR 0.93 MG/DL (0.70-1.30); GLOMERULAR FILTRATION RATE > 60.0 (>60); GLUCOSE, FASTING 192 MG/DL (70-105); POTASSIUM SERUM 3.4 MEQ/L (3.5-5.1); SODIUM LEVEL 127 MEQ/L (136-145)
[2017-05-21] MEDS: AZITHROMYCIN INJ 500 MG, VIAL MATE ADAPTER 1 EACH in D5W 250 ML IV SCH (17:38)
[2017-05-21 21:14] LABS: ANION GAP 9 MEQ/L (8-16); BLOOD UREA NITROGEN 15 MG/DL (7-18); CALCIUM LEVEL 8.5 MG/DL (8.5-10.1); CARBON DIOXIDE LEVEL 28 MEQ/L (21-32); CHLORIDE LEVEL 91 MEQ/L (98-107); GLOMERULAR FILTRATION RATE > 60.0 (>60); GLUCOSE, FASTING 128 MG/DL (70-105); POTASSIUM SERUM 3.5 MEQ/L (3.5-5.1); SODIUM LEVEL 128 MEQ/L (136-145)
[2017-05-21 21:30] VITALS: BP 132/79
[2017-05-21] MEDS ORDERED: POTASSIUM CHL PWD 20 MEQ PACKET PO ONE (21:45)
[2017-05-22] VITALS (7 sets, daily range): BP systolic 113–139; BP diastolic 72–94
[2017-05-22] MEDS: MEROPENEM INJ 1 GM in D5W MINI-BAG PLUS 100 ML IV SCH ×3 (00:39→17:45)
[2017-05-22 01:20] LABS: ANION GAP 8 MEQ/L (8-16); BLOOD UREA NITROGEN 15 MG/DL (7-18); CALCIUM LEVEL 8.3 MG/DL (8.5-10.1); CARBON DIOXIDE LEVEL 28 MEQ/L (21-32); CHLORIDE LEVEL 94 MEQ/L (98-107); CREATININE FOR GFR 1.06 MG/DL (0.70-1.30); GLOMERULAR FILTRATION RATE > 60.0 (>60); GLUCOSE, FASTING 154 MG/DL (70-105); POTASSIUM SERUM 3.8 MEQ/L (3.5-5.1); SODIUM LEVEL 130 MEQ/L (136-145)
[2017-05-22] MEDS: KCL 20MEQ in NS 1000ML 1,000 ML IV SCH ×2 (01:56→04:30)
--- NOTE | 2017-05-22 01:56 | IPN ---
DATE OF SERVICE: 05/21/2017 SUBJECTIVE: Patient was seen and examined at the bedside today morning. Last 24-hour events were noted. Labs were reviewed. Patient's sodium is stable, at around 125. Patient was evaluated by cardiothoracic (CT) surgery. He is going to have his left-sided chest tube placed. Patient reports that he is feeling almost the same as compared with yesterday. Patient is oliguric at this time. REVIEW OF SYSTEMS: Patient reports fevers. He denies chills and rigors. Patient reports mild left-sided chest pain. He does report some shortness of breath, as well. He also reports that he is hungry, and he is nothing by mouth since yesterday for the procedure. He is also reporting some loose stools. Rest of review of systems is negative. OBJECTIVE: VITAL SIGNS: Maximum temperature (Tmax) is 101.5 degrees Fahrenheit. Blood pressure is 133/79. Pulse is 112. Respiratory rate of 18. Saturating 96% on nasal cannula at 2 liters. INTAKE AND OUTPUT: Urine output recorded as 350 mL so far. Weight on the bed scale is 129.5 kg. PHYSICAL EXAM: GENERAL: Patient is awake, alert, oriented times three, lying in bed, in mild respiratory distress. HEAD AND NECK EXAM: Extraocular muscles intact. Pupils equally round and reactive to light. Patient has erythema of the face. Mucous membranes are moist. Neck is supple. There is no jugular venous distention (JVD). CARDIOVASCULAR: S1, S2, tachycardia. No murmur, rub, or gallop. RESPIRATORY: Patient has decreased breath sounds on the left side. Decreased vocal resonance on the left side, and he has bronchial breath sounds on the left upper lobes. ABDOMEN: Is soft. Positive bowel sounds. Nontender. No ascites. No organomegaly. MUSCULOSKELETAL: Pulses are 2+ in the extremities. No edema. No cyanosis of the extremities. CENTRAL NERVOUS SYSTEM (MACHIN[employer]): No focal neurological deficit. Power is 5/5 in all extremities. LAB REVIEW: CBC showed a WBC of 22.5, hemoglobin 13.5, platelets at 388. BMP done today morning showed a sodium of 125, potassium is 3, chloride 87, bicarbonate 29, BUN 18, creatinine is 1.03, calcium 8.4. Microbiology: Blood cultures are pending so far. Urine culture is negative. CURRENT INPATIENT MEDICATIONS: Patient's medications were all reviewed by me. He was given potassium chloride intravenously (IV), and two doses of potassium chloride 40 mEq by mouth today morning and today afternoon have also been ordered. I have started the patient on potassium chloride (KCl) 20 mEq in normal saline at 125 mL/h. He has also been started on meropenem 1 gram IV every 8 hours. ASSESSMENT: 26-year-old male with no significant past medical history admitted this time because of large left-sided pleural effusion and left-sided pneumonia along with symptomatic hyponatremia. PLAN: 1. Hypovolemic hypotonic hyponatremia. Patient's urine sodium improved from 119 to 125 over the last 24 hours. Now, I am going to start the patient on normal saline at 125 mL/h. Continue the serial basic metabolic panel (BMP) monitoring. I am expecting that patient's sodium level would improve to more than 130 within the next 24 hours. 2. Hypokalemia. Patient also already got two doses of potassium chloride 40 mEq by mouth times two. I have also added the potassium to intravenous (IV) fluids, as well. Potassium level is expected to improve with the current supplementation. 3. Sepsis secondary to left-sided pneumonia and parapneumonic effusion. Continue current dose of azithromycin, meropenem, and vancomycin. Please check vancomycin levels and aim for levels between 15 to 20. The plan of care was discussed with the patient's family members at the bedside.
[2017-05-22] MEDS: LEVALBUTEROL 1.25 MG/0.5 ML CONCENTRATE NEB NEB SCH ×4 (02:00→20:20)
[2017-05-22] MEDS: VANCOMYCIN HCL 1,000 MG, VIAL MATE ADAPTER 1 EACH in D5W 250 ML IV SCH ×4 (02:42→20:00)
[2017-05-22] MEDS: PERCOCET 5MG/325MG TAB PO PRN ×4 (06:14→20:01)
[2017-05-22 06:25] LABS: ADD MANUAL DIFFER YES; DIFF SLIDE NUMBER 60; MEAN CORPUSCULAR HEMOGLOBIN 31.9 pg (27.0-33.0); MEAN CORPUSCULAR HGB CONC 34.8 g/dl (32.0-36.5); MEAN CORPUSCULAR VOLUME 91.7 fl (80.0-96.0); PLATELET COUNT, AUTOMATED 390 k/mm3 (150-450); RED CELL DISTRIBUTION WIDTH 12.5 % (11.5-14.5); WHITE BLOOD COUNT 21.1 K/mm3 (4.0-10.0)
[2017-05-22 06:30] LABS: ALBUMIN/GLOBULIN RATIO 0.53 (1.00-1.93); ALKALINE PHOSPHATASE 155 U/L (45-117); ALT/SGPT 35 U/L (12-78); ANION GAP 9 MEQ/L (8-16); AST/SGOT 29 U/L (15-37); BILIRUBIN,TOTAL 0.9 MG/DL (0.2-1.0); BLOOD UREA NITROGEN 14 MG/DL (7-18); CALCIUM LEVEL 8.1 MG/DL (8.5-10.1); CARBON DIOXIDE LEVEL 25 MEQ/L (21-32); CHLORIDE LEVEL 95 MEQ/L (98-107); CREATININE FOR GFR 0.87 MG/DL (0.70-1.30); GLOMERULAR FILTRATION RATE > 60.0 (>60); GLUCOSE, FASTING 153 MG/DL (70-105); MAGNESIUM LEVEL 2.2 MG/DL (1.8-2.4); POTASSIUM SERUM 3.7 MEQ/L (3.5-5.1); SODIUM LEVEL 129 MEQ/L (136-145); TOTAL PROTEIN 5.8 GM/DL (6.4-8.2)
--- NOTE | 2017-05-22 06:41 | RO ---
DATE OF PROCEDURE: 05/20/2017 PREOPERATIVE DIAGNOSIS: Left pleural effusion. POSTOPERATIVE DIAGNOSIS: Left pleural effusion. PROCEDURE: Insertion of left posterior lateral chest tube. SURGEON: Dr. Dio Kat TELEPHONE QUOTATION CLERK: ANESTHESIA: FINDINGS: The patient eluted 1100 mL of cloudy brown fluid. PROCEDURE: Under satisfactory moderate sedation achieved with 4 mg of Versed, the patient was prepped and draped in the usual sterile fashion. Incision was made over the approximate 7th rib and a tunnel was created into the left chest to the approximately 6th intercostal space. A #24 chest tube was placed without difficulty and the above results were noted. The chest tube was secured to the chest wall with #2 Tevdek suture and connected to the Pleur-evac. The patient tolerated the procedure well and a chest x-ray is pending.
[2017-05-22 06:51] LABS: EOSINOPHILS 3 % (0-5)
[2017-05-22 06:56] LABS: TOXIC GRANULATION 1+
--- NOTE | 2017-05-22 07:10 | CR ---
DATE OF CONSULTATION: 05/21/2017 The patient seen at the request of Dr. Cr of the emergency room and the hospitalist service for a pleural effusion and possible empyema. HISTORY OF PRESENT ILLNESS: The patient is a 26-year-old while male who has confused and vague memories of his present illness. However, his parents and his girlfriend are here. His girlfriend lives with him. Evidently, about a week to a week and a half ago he started to exhibit nausea and vomiting. This then progressed to diarrhea. This is accompanied by myalgias and arthralgias. This past Monday, went to [facility] where he was placed on Levaquin. In addition to the nausea and vomiting, he is feeling dizzy and he was placed on meclizine. He has had no problem lying flat in bed, i.e., no orthopnea and no paroxysmal nocturnal dyspnea. His girlfriend says that he had periods of feeling hot and cold with wrapping himself up in blankets and then having a fan on. There were no actual rigors that she could ascertain. There is no seizures. He was admitted yesterday through the emergency room when he became very confused and was brought to the emergency room . He has continued to have the diarrhea and nausea and vomiting. He was found to have a sodium of 119 yesterday and has been gradually replaced with sodium. CT yesterday also showed him to have a moderate to large pleural effusion with complete compression of his left lower lobe. Nonetheless on that, he was oxygenating well and in the PCU here, he was 96 to 98% saturated on 2 liters nasal cannula. There were no blood gases obtained. PAST MEDICAL ILLNESSES: None. PAST SURGICAL HISTORY: None. ALLERGIES: None. MEDICATIONS AT HOME: Prior to the episode, none. HABITS: Does not smoke, but he chews tobacco. He has occasional alcohol intake. No illicit drugs. TRAVEL HISTORY: In the remote past, he and his family have traveled to [place]. No travel outside the [facility] or to [facility]. 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 This does entailed a lot of dust. He has not used any protective mask. EXPOSURES: No exposures to tuberculosis. No dogs, cats or birds at home. However, his parents, who he visits often, have two dogs, a andre retriever and a silver lab. FAMILY HISTORY: Noncontributory. REVIEW OF SYSTEMS: Constitutional: See history of present illness (HPI). He has not had any changes in his weight. Eyes without diplopia, without transient monocular blindness and without prior jaundice. Nose without epistaxis. Mouth: Has his own teeth. Respiratory: See HPI. Cardiac without prior myocardial infarctions, orthopnea, paroxysmal nocturnal dyspnea or peripheral edema. GI: See HPI. : Without dysuria or hematuria, without prior renal stones. Neurologic: Without paresthesias or paralyzes, or seizures. Psychiatric Without pathologic anxieties, depression or psychoses. Endocrine: Without diabetes. Without thyroid disease. Hematologic: Without prolonged bleeding times. Lymphatics: Without lumps or bumps in the neck, axilla or groin that he has noted. PHYSICAL EXAMINATION: Well-developed, well-nourished white male in no acute distress lying comfortably in bed. Heart rate is 112 and in sinus rhythm with a respiratory rate of 18 without the use of accessory muscles, who is 98% saturation in 2 liters of nasal cannula and his blood pressure is 131/87. His head is normocephalic. Eyes: Pupils equal, round and reactive to light. Extraocular muscles intact Sclerae are nonicteric. Nose without deformity. Mouth shows his mucous membranes to be pink and moist. Lips and commissures without lesions. There is no oral thrush. His teeth are in good repair. Neck is supple. There is no jugular venous distention. No subcutaneous emphysema. Trachea is midline. There are no carotid bruits. His has 2+ carotid upstrokes. No lymphadenopathy or thyromegaly. Lungs show markedly decreased breath sounds on the left side with a dull percussion note on the left side. Right side has normal vesicular sounds without wheezes, rhonchi or rales. Cardiac exam is without murmurs, clicks, gallops or rubs. I cannot feel his point of maximum impulse (PMI). S1, S2, are normal. Abdomen is soft, nontender. Bowel sounds are positive. There is no hepatomegaly. No CVA tenderness. Extremities show no pretibial edema. No calf tenderness. No differential swelling of the upper extremities. Skin is warm and dry perfused without cyanosis or mottling including that of the nail beds and knees. Neuro shows II through XII intact along with gross motor and gross sensation intact. Gait is not tested. Psychiatric showed him to be awake, alert and oriented times three with appropriate and affect and conversational. As noted in the HPI, his initial sodium was 119. It has now risen to 125. Latest electrolytes today show a potassium of 3.0, up from an additional potassium of 2.3. His total CO2 is 29 with a chloride of 87, which was initially 78. BUN and creatinine are 18 and 1.03 with a glucose of 138 and a calcium of 8.4. His lipase is 478, down from 578 yesterday. Phosphorus is 2.4 and his LFTs shows an AST and ALT of 39 and 42, nearly normal. Albumin is 2.3. His white count today is 22.5, only slightly down from 23.8 yesterday. Hemoglobin and hematocrit are 13.5 and 37.5 down from 14.8 and 40.9, no doubt secondary to hemodilution with a positive input and output of 1350. Platelets are 388 and differential showed 76% neutrophils, 5% bands, 9% lymphocytes, 7% monocytes. He has 2+ toxic granulations and 2+ toxic vacuolizations. His chest CT done yesterday without contrast shows a moderate pleural effusion with compression of the left lower lobe. There is also some fluid in the fissure and a possible left upper lobe infiltrate in the lingula. Right side shows normal parenchyma. There is no pericardial effusion. Adrenals have a normal configuration as does his liver and spleen. I do not see his pancreas well. IMPRESSION: 1. Pleural effusion. 2. Compression atelectasis of left lower lobe. 3. Possible pneumonia. 4. Hyponatremia. 5. Hypokalemia. 6. Gastroenteritis. PLAN AND DISCUSSION: The initial syndrome sounds to be severe gastroenteritis. That would explain his hypochloremia with his hyponatremia and hypokalemia. The pleural fluid on the left side may be secondary to hypo-osmolality. Osmolality is low with his osmolality yesterday being 263. The fever and chills along with leukocytosis could still be gastroenteritis. There is also the spectrum of pancreatitis with his increased lipase, however, his amylase is normal. He has no abdominal symptomatology consistent with pancreatitis. I will therefore, place a chest tube and drain his chest, in case this is an empyema with an underlying pneumonia of the left lower lobe rather than compression atelectasis. I will send it off for the requisite studies.
[2017-05-22] MEDS: POTASSIUM CHLORIDE 10 MEQ SR TABLET PO SCH (09:23)
[2017-05-22 09:58] LABS: CORTISOL BASELINE 32.4 UG/DL (4.3-22.4)
--- NOTE | 2017-05-22 10:24 | REP ---
CHEST, TWO VIEWS: HISTORY: Pleural effusion. COMPARISON: 05/21/2017. Increased density is present in the left lower lobe consistent with atelectasis or infiltrate. A small left pleural effusion is present. A chest tube is present in the left hemithorax. A small left apical pneumothorax is present. The right lung is clear. The heart is normal in size. The pulmonary vasculature is normal in appearance. The bony structure is intact. IMPRESSION: 1. Left lower lobe atelectasis or infiltrate and left pleural effusion unchanged compared to the previous study. 2. Small left apical pneumothorax. Signed by Rony Denney MD 05/22/2017 10:25 A
[2017-05-22] MEDS: KETOROLAC 30 MG/ML VIAL (J1885) IV SCH ×2 (11:41→17:46)
--- NOTE | 2017-05-22 12:52 | IPN ---
DATE: 05/22/2017 It is now 24 hours status post chest tube insertion. He is feeling much better today although he has had some pain at the chest tube insertion site. He is able to take a deep breath. His vital signs show a T-max of 101.0 at 4 o'clock yesterday afternoon. He is now 99.1. His blood pressure ranges between 135/86 to 128/74 with a heart rate that ranges between 120 and 118 in sinus rhythm and respiratory rate of 18-20 without the use of accessory muscles who is 94% saturated on 2 liters nasal cannula. His intake and output for the past 24 hours have been recorded as 2900 in and 2698 out for a positivity of 200 mL. He has put out 1048 mL from the chest tube and 55 mL in the last 12 hours. He weighs 128.5 kg compared to 129.5 kg yesterday. On physical examination, he has decreased breath sounds in the left lower hemithorax. Percussion note is also dull at the left hemithorax. Right lung shows normal vesicular sounds. Percussion note is full to the diaphragm on the right. Cardiac exam is without murmurs, clicks, gallops or rubs. I cannot feel his PMI. S1 and S2 are normal. Abdomen is soft, nontender, bowel sounds are positive. There is no hepatomegaly. No CVA tenderness. Extremities show no pretibial edema. No calf tenderness. No differential swelling of the upper extremities. Skin is warm, dry and perfused without cyanosis or mottling including that of the nail beds and knees. Neck is supple. There is no jugular venous distention. No subcutaneous emphysema. Trachea is midline. Mouth shows his mucous membranes to be pink and moist. Lips and commissures are without lesions. No thrush. Eyes show his pupils to be equal and reactive. Extraocular motor intact. Sclera anicteric. Neuro shows II through XII intact with gross motor and gross sensation intact. Gait is not tested. Psychiatric shows him to be awake and alert, oriented times three with appropriate mood and affect and conversational. His white count today is 21.1 with hemoglobin and hematocrit of 13.3 and 38.3 respectively. Platelet count is 390 and stable and differential shows 86% neutrophils, 5% monocytes, 3% eosinophils. He still has 1+ toxic granulations but there are no immature forms. His sodium today is 129 with a potassium of 3.7 and a BUN and creatinine of 14 and 0.87. Glucose is 153 with a calcium of 8.1 and an albumin of 2.0. Magnesium is 2.0. Liver functions have normalized. His pleural fluid analysis has come back with a pH of 7.62 with an LDH of 938 and a glucose of 141. There are a total of 4450 nucleated cells of which 71% are neutrophils, 9% are lymphocytes and 20% are monocyte and macrophages. This looks to be at least an inflammatory response with a high LDH and neutrophilically predominant. No organisms are seen in the gram stain. His chest x-ray today still shows opacity in the left lower hemithorax. I cannot tell if this is retained fluid or whether it is consolidation from his pneumonia and/or compression. On the lateral it looks curvilinear and may well represent a fluid collection. It would be anterior. Chest tube is in good place posteriorly. Right costophrenic angle is sharp. I see no other infiltrates. IMPRESSION: 1. Pleural effusion drained, at least inflammatory. 2. Compression atelectasis versus pneumonia of the left lower lobe. 3. Possible pneumonia. 4. Hyponatremia resolving. 5. Hypokalemia resolving. 6. Gastroenteritis resolving. PLAN AND DISCUSSION: As I do not know what the left opacity in the lower hemithorax means, I will obtain a CT without contrast. He is having pain at the chest tube insertion site and I will start Toradol.
--- NOTE | 2017-05-22 14:05 | REP ---
CT STUDY OF THE CHEST WITHOUT CONTRAST: HISTORY: Consolidation versus effusion. Status post chest tube. Comparison CT study of the chest is from May 20, 2017. Comparison is made with today's chest x-ray as well as chest x-ray from May 17, 2017 and [address] FINDINGS: A left chest tube has been inserted and is seen passing posteriorly in the pleural space towards the upper lung zone. The previously noted left pleural effusion has been drained. There are areas of consolidation with air bronchograms and collapse in the left lower lobe. In addition, there is an air-fluid level in a collection in the left mid lung zone. This air fluid level and collection measures 5.5 cm in greatest diameter. This appears to be loculated intrafissural fluid and air. There is a small pneumothorax visible anteriorly and superiorly in the left chest. On the right, there is a very small amount of pleural fluid and some posterior dependent subsegmental atelectatic changes are seen. The right lung is otherwise clear. Again noted is stranding in the epicardial fat in the lower chest and in the omental fat in the upper abdomen on the left upper quadrant. Today's CT extends a little lower in the abdomen and diffuse omental fat stranding and nodularity is seen in the central abdomen and right upper quadrant. There is fluid in the perisplenic, peripancreatic and left pericolic gutter in the abdomen as well. The pattern raises a question of pancreatitis with extensive inflammatory fluid and intra-abdominal fat infiltration. CT study of the abdomen and pelvis with IV and possibly oral contrast should be considered. IMPRESSION: Left chest tube in place. Improved left pleural effusion. Some loculated air and fluid in the major fissure on the left. Consolidation and collapse in the left lower lobe of the lung. There is also an extensive infiltrative pattern in the peripancreatic fat, omental fat with fluid in the pericolic gutter and perisplenic regions of the left upper quadrant of the abdomen. This same infiltrative pattern is seen in the epicardial fat anterior to the heart. Consider CT study of the abdomen and pelvis with IV and oral contrast. Signed by Malik Torres MD 05/22/2017 03:50 P
[2017-05-22 14:09] LABS: ANION GAP 9 MEQ/L (8-16); BLOOD UREA NITROGEN 14 MG/DL (7-18); CALCIUM LEVEL 7.8 MG/DL (8.5-10.1); CARBON DIOXIDE LEVEL 26 MEQ/L (21-32); CHLORIDE LEVEL 95 MEQ/L (98-107); COMPLEMENT C4 15.5 MG/DL (10-40); CREATININE FOR GFR 0.88 MG/DL (0.70-1.30); GLOMERULAR FILTRATION RATE > 60.0 (>60); GLUCOSE, FASTING 126 MG/DL (70-105); POTASSIUM SERUM 3.7 MEQ/L (3.5-5.1); SODIUM LEVEL 130 MEQ/L (136-145)
--- NOTE | 2017-05-22 14:58 | IPN ---
DATE OF VISIT: 05/22/2017 SUBJECTIVE: Mr. Chaudhari is a 26-year-old male who was seen and examined at the bedside. The patient denies overnight issues. The patient expressed that he feels better today, and his breathing is better after the patient having the chest tube, which was performed by Dr. Kat. The patient also expressed that he has mild chest pain at the site of the chest tube, which is proportional to the procedure. The patient denies nausea, vomiting, diarrhea, or constipation. The patient also denies chest pain, palpitation, racing or skipping heartbeat. OBJECTIVE: VITAL SIGNS: Temperature 99.1, pulse 120, respiratory rate 20, blood pressure 139/80, pulse oximetry 94% on 2 liters nasal cannula. GENERAL APPEARANCE: The patient was sitting in a chair, in no acute distress. The patient was awake, alert, and oriented to time, person, and place. HEENT: Normocephalic, atraumatic. Pupils are equal and reactive to light. Oral mucosa is moist. NECK: Soft. Supple. No lymphadenopathy. No thyromegaly. HEART: Tachycardia. Normal S1, S2. ABDOMEN: Soft, nontender. Positive bowel sounds in all quadrants. EXTREMITIES: No lower extremity edema. +2 pulses in both lower extremities. GENITOURINARY (): Testes were nontender to palpation. No abnormal mass or lesions was noticed in the scrotum area. No lymphadenopathy was noticed in the inguinal area. EXTREMITIES: No lymphadenopathy was noticed in the axillary area bilaterally. The patient has normal range of motion, both upper and lower extremities. LABORATORY DATA: White blood cells 21.1, red blood cells 4.18, hemoglobin 13.3, hematocrit 38.3, MCV 91.7, MCH 31.9, MCHC 34.8, RDW 12.5, platelet count 390, neutrophil percentage 86, lymphocyte percentage 5, monocyte percentage 6, eosinophil percentage 3, erythrocyte sedimentation rate (ESR) 59. Sodium 129, potassium 3.7, chloride 95, carbon dioxide 25, anion gap 9, BUN 14, creatinine 0.87, glomerular filtration rate more than 60, fasting glucose 153, calcium 8.1, magnesium 2.2, total bilirubin 0.9, AST 29, ALT 35, alkaline phosphatase 155, C-reactive protein 10.4, total protein 5.8, albumin 2. ASSESSMENT AND PLAN: 1. Acute hypoxic respiratory failure. The pleural fluid was analyzed, and the result indicated exudative. Possibilities include pneumonia, malignancy, as well as lupus and rheumatoid. We have ordered rheumatoid factor, anti-CCP, as well as c-antineutrophil cytoplasmic antibody (ANCA), p-ANCA, double-stranded DNA antibody, as well as a complement C3 and C4, and the results are pending at this time. Dr. Kat has ordered a new CT of the chest, and the result is pending at this time. Blood culture was negative after 24 hours, as well as a urine culture. We are still waiting for the cytology for the pleural fluid, as well as gram stain. The patient expressed that has not lost weight before developing symptoms. The physical examination did not show any lymphadenopathy or abnormal testicular finding. We will continue the patient on current antibody (azithromycin, meropenem, and vancomycin). 2. Status post acute metabolic encephalopathy. This has resolved. 3. Hyponatremia. This is possibly hypotonic hyponatremia. Dr. Flores has been consulted. The patient at this time is not on intravenous (IV) fluid. We are waiting for further recommendation from Dr. Flores. 4. Hypokalemia. At this time, the patient's potassium level is in normal range. 5. Possible pancreatitis. At this time, the patient tolerating by mouth well. The patient has no physical examination findings of the pancreatitis. This could be secondary to stress caused by nausea and vomiting, as well as infection. However, at this time, the patient is stable. 6. Lactic acidosis. This has resolved. 7. Elevated thyroid-stimulating hormone (TSH). This could be secondary to stress. TSH needs to be repeated again later on. 8. Deep venous thrombosis (DVT) prophylaxis. The patient is on thromboembolic deterrents (TEDs) and sequentials. My preceptor for this patient encounter was Dayanna Garrett MD. The preceptor was physically present in the building during the encounter and was fully available. As needed, all aspects of the patient interview, examination, medical decision making process, and medical care plan development were reviewed and approved by the preceptor. The preceptor is aware and concurs with the plan as stated in the body of this note and will attest to such by his/her cosignature. I, Dayanna Garrett, have both independently examined this patient as well as reviewed the documentation. I have discussed in detail with the resident the findings and plan of treatment as documented in the residents documentation. I will continue to follow the patient and offer further guidance to the patients care as necessary during this hospital stay. RJ
--- NOTE | 2017-05-22 15:41 | PHACANCOPD ---
PHARMACY VANCOMYCIN DOSING Pt Demographics Demographics Patient Age:26 , Weight:128.500 , Gender: male Adjusted Body Weight Date: 05/21/17, Adjusted Body Weight: Kg Events Past 24 Hours Events Past 24 Hours: NO: Dialysis, Diuretic Therapy, Change in CrCl, Fever, Elevation in WBC, Pending Diagnostics, Pending Procedures, Other Vancomycin Vancomycin indication: HCAP Vancomycin Target Ranges: 15-20 mcg/ml Vancomycin Load Y/N: Yes Load Dose Date Time Vancomycin Load Dose: 2000mg Date: 05/21/17 Time: 900 Vancomycin Dose Date: 05/22/17. Current Vancomycin Dose: [1gm IV q6h@09] Date: 05/21/17. Current Vancomycin Dose: [1gm IV q6h@09] Intermittent Dosing?: No Labs Labs Item Value Date Time Vancomycin Level Trough 17.5 UG/ML 05/22/17 1404 Creatinine 0.87 MG/DL 05/22/17 0550 Creatinine 0.88 MG/DL 05/22/17 1213 White Blood Count 23.8 K/mm3 H 05/20/17 1309 White Blood Count 22.5 K/mm3 H 05/21/17 0430 White Blood Count 21.1 K/mm3 H 05/22/17 0550 Micro Microbiology 05/20/17 Blood Culture - Preliminary, Resulted No Growth after 48 hours. All Specime... 05/20/17 Blood Culture - Preliminary, Resulted No Growth after 48 hours. All Specime... 05/21/17 Acid Fast Stain, Received Pending 05/21/17 Mycobacterial Culture, Received Pending 05/21/17 Fungal Smear, Received Pending 05/21/17 Fungal Culture, Received Pending 05/21/17 Gram Stain - Final, Resulted 05/21/17 Anaerobic Culture, Resulted Pending 05/21/17 Body Fluid Culture, Received Pending 05/20/17 Influenza Virus Type A Antigen - Final, Complete 05/20/17 Influenza Virus Type B Antigen - Final, Complete 05/20/17 Respiratory Virus Panel (PCR) (JORGE) - Final, Complete 05/20/17 Urine Culture - Final, Complete Creatinine Clearance Date:05/21/17. Creatinine Clearance: . Assessment and Plan Maintaining Current Dose?: Yes Reason for dose change: No Dose Change Pharmacist Note Pharmacist Note 05/22: Patient's trough came back at 17.5 today. His SCr is remaining stable, his breathing has improved but his WBC remains elevated. Dr. Crespo has been consulted. for now we will continue his Vancomycin 1gm IV q6h with his zithromax and Meropenem. We will continue to monitor and make adjustments as necessary. Date: 05/21/17. Pharmacist note: Patient was brought to the Emergency Department by his mother for increased mental status. Monday he presented to an Urgent Care for increased SOB, diarrhea, altered mental status, and increased fatigue. He was given Levaquin and Meclizine and discharged home. Since then his mental status as decreased with experiencing hallucinations. He has no significant past medical history. His chest XRay showed a large pleural effusion with a near collapsed left lung. Also showed possible pancreatitis. He currently has blood and pleural fluid cultures pending, and his urine culture and respiratory panel was negative. He had a chest tube placed today by Dr. Kat as well. He is currently on Zithromax, Meropenem, and Vancomycin for the treatment of his pneumonia. He has no history of MRSA or Vancomycin use at our facility. The patient was loaded with Vancomycin 2000mg, then continued on 1000mg IV q6h for now. We will continue to monitor and make adjustments as necessary. SUZANNE MARTINEZ PHARMACY May 22, 2017 15:41
[2017-05-22] MEDS: AZITHROMYCIN INJ 500 MG, VIAL MATE ADAPTER 1 EACH in D5W 250 ML IV SCH (18:30)
[2017-05-22 19:27] LABS: ANION GAP 10 MEQ/L (8-16); ANION GAP 11 MEQ/L (8-16); BLOOD UREA NITROGEN 20 MG/DL (7-18); CALCIUM LEVEL 7.9 MG/DL (8.5-10.1); CARBON DIOXIDE LEVEL 23 MEQ/L (21-32); CHLORIDE LEVEL 96 MEQ/L (98-107); CREATININE FOR GFR 1.12 MG/DL (0.70-1.30); GLOMERULAR FILTRATION RATE > 60.0 (>60); GLUCOSE, FASTING 157 MG/DL (70-105); GLUCOSE, FASTING 158 MG/DL (70-105); PHOSPHORUS LEVEL 3.1 MG/DL (2.5-4.9); POTASSIUM SERUM 3.5 MEQ/L (3.5-5.1); POTASSIUM SERUM 3.8 MEQ/L (3.5-5.1); SODIUM LEVEL 129 MEQ/L (136-145); SODIUM LEVEL 130 MEQ/L (136-145)
[2017-05-22] MEDS: KCL 20MEQ IN D5/NS 1000ML 1,000 ML IV SCH (21:45)
[2017-05-22] MEDS ORDERED: GASTROGRAFIN SOLUTION 30ML PO ONE (22:00)
[2017-05-22] MEDS ORDERED: GASTROGRAFIN SOLUTION 30ML (Q9963) PO ONE (22:30)
[2017-05-22] MEDS ORDERED: ISOVUE-370 76% 100ML VIAL (Q9967) As Ordered ONE (23:15)
--- NOTE | 2017-05-22 23:40 | REPUSA ---
CT of the abdomen and pelvis with contrast Clinical statement: Pain. Technique: Multiple axial CT images were obtained from the base of the lungs through the floor of the pelvis utilizing 5 mm axial slices after administration of nonionic intravenous contrast. Coronal an d sagittal reconstructions were also obtained. Comparison: None. Findings: Chest: The visualized lung bases demonstrate minimal atelectasis bilaterally. Abdomen: There is extensive inflammation and edema around the pancreas. No pancreatic necrosis or pse udocyst formation is seen at this time. Large amount of abdominal ascites with infiltrated changes th roughout the mesentery are noted. The liver, spleen, kidneys, gallbladder, and adrenal glands are unr emarkable. The aorta is within normal limits. There is no evidence of abdominal lymphadenopathy. Pelvis: There is fluid seen tracking along the left retroperitoneum into the lower pelvis. Now locul ated fluid collection is demonstrated. There is moderate amount of pelvic ascites as well, Predominat jackson in the left flank region. The bowel is unremarkable, with no obstructive or inflammatory changes. The urinary bladder is within normal limits. The other pelvic structures appear grossly intact. Ther e is no evidence of pelvic lymphadenopathy. Bones: There are no suspicious osseous abnormalities seen. Impression: 1. Severe acute pancreatitis, with diffuse inflammation and fluid throughout the upper abdomen. Infil trative changes throughout the mesenteric. No evidence of pancreatic necrosis, pseudocyst formation, or abscess. 2. Large amount of abdominal ascites, with moderate amount of pelvic ascites seen in the left flank r egion and left retroperitoneal cavity. 3. There is no evidence of bowel obstruction. 4. No evidence of hydronephrosis or nephrolithiasis. 5. Minimal atelectasis in the lung bases bilaterally.
[2017-05-23] VITALS (7 sets, daily range): BP systolic 131–169; BP diastolic 78–91; O2SAT 95
[2017-05-23] MEDS: MEROPENEM INJ 1 GM in D5W MINI-BAG PLUS 100 ML IV SCH ×4 (00:08→23:37)
[2017-05-23] MEDS: PERCOCET 5MG/325MG TAB PO PRN ×5 (00:09→19:59)
[2017-05-23 01:11] LABS: ANION GAP 9 MEQ/L (8-16); BLOOD UREA NITROGEN 20 MG/DL (7-18); CALCIUM LEVEL 7.9 MG/DL (8.5-10.1); CARBON DIOXIDE LEVEL 26 MEQ/L (21-32); CHLORIDE LEVEL 94 MEQ/L (98-107); CREATININE FOR GFR 1.06 MG/DL (0.70-1.30); GLOMERULAR FILTRATION RATE > 60.0 (>60); GLUCOSE, FASTING 127 MG/DL (70-105); POTASSIUM SERUM 4.2 MEQ/L (3.5-5.1); SODIUM LEVEL 129 MEQ/L (136-145)
[2017-05-23] MEDS: LEVALBUTEROL 1.25 MG/0.5 ML CONCENTRATE NEB NEB SCH ×4 (02:00→20:57)
[2017-05-23] MEDS: VANCOMYCIN HCL 1,000 MG, VIAL MATE ADAPTER 1 EACH in D5W 250 ML IV SCH ×4 (03:50→20:00)
[2017-05-23 06:00] LABS: BASO # 0.1 K/mm3 (0.0-0.2); BASO % 0.3 % (0.0-1.0); EOS # 0.2 K/mm3 (0.0-0.50); EOS % 0.9 % (0.0-3.0); LARGE UNSTAINED CELL # 0.1 K/mm3 (0.0-0.4); LARGE UNSTAINED CELL % 0.7 % (0.0-4.0); LYMPH % 4.2 % (24.0-44.0); MEAN CORPUSCULAR HEMOGLOBIN 31.2 pg (27.0-33.0); MEAN CORPUSCULAR HGB CONC 33.5 g/dl (32.0-36.5); MEAN CORPUSCULAR VOLUME 93.2 fl (80.0-96.0); MONO # 0.5 K/mm3 (0.0-0.8); MONO % 2.6 % (0.0-5.0); NEUTROPHILS # 18.3 K/mm3 (1.8-7.7); NEUTROPHILS % 91.2 % (36.0-66.0); PLATELET COUNT, AUTOMATED 416 k/mm3 (150-450); RED CELL DISTRIBUTION WIDTH 12.7 % (11.5-14.5)
[2017-05-23 06:13] LABS: ALKALINE PHOSPHATASE 210 U/L (45-117); ALT/SGPT 39 U/L (12-78); ANION GAP 7 MEQ/L (8-16); AST/SGOT 40 U/L (15-37); BILIRUBIN,TOTAL 0.8 MG/DL (0.2-1.0); BLOOD UREA NITROGEN 17 MG/DL (7-18); CALCIUM LEVEL 8.3 MG/DL (8.5-10.1); CARBON DIOXIDE LEVEL 27 MEQ/L (21-32); CHLORIDE LEVEL 96 MEQ/L (98-107); CREATININE FOR GFR 0.98 MG/DL (0.70-1.30); GLOMERULAR FILTRATION RATE > 60.0 (>60); GLUCOSE, FASTING 156 MG/DL (70-105); MAGNESIUM LEVEL 2.3 MG/DL (1.8-2.4); PHOSPHORUS LEVEL 3.7 MG/DL (2.5-4.9); POTASSIUM SERUM 3.7 MEQ/L (3.5-5.1); SODIUM LEVEL 130 MEQ/L (136-145)
--- NOTE | 2017-05-23 06:53 | IPN ---
DATE: 05/22/2017 SUBJECTIVE: The patient is seen and examined at the bedside today in the morning. Last 24-hour events were noted. The patient got left-sided chest tube placed. The patient reports that he is still feeling almost the same as compared with yesterday. However, sodium level is improving. It is up to 130 now, and patient's renal function is stable at this time. REVIEW OF SYSTEMS: The patient denies any fevers, chills, rigors, headaches, nausea, vomiting. He does report left-sided chest pain. He does report mild shortness of breath. The patient reports that he is still having loose stools and diarrhea at this time. Rest of review of systems is negative. OBJECTIVE: VITAL SIGNS: Temperature is 98.9 degrees Fahrenheit, blood pressure is 134/78, pulse is 120, respiratory rate of 20, saturating 94% on nasal cannula at two liters. INTAKE AND OUTPUT: Urine output recorded as 1.6 liters yesterday, 225 mL so far today since overnight. Weight in the bed scale is 128.5 kg. PHYSICAL EXAMINATION: GENERAL: The patient is awake, alert, oriented times three, in mild respiratory distress. HEAD/NECK: Extraocular muscles intact. Pupils equal, round, and reactive to light. Mucous membranes are moist. Neck is supple. There is no jugular venous distention (JVD). CARDIOVASCULAR: S1, S2. Tachycardia. No murmur, rub, or gallop. RESPIRATORY: Decreased breath sounds at the bases. The patient has a left-sided chest tube. ABDOMEN: Soft. Positive bowel sounds. Mildly tender in the epigastrium. MUSCULOSKELETAL: There are no muscle aches and pains. Normal range of movement. No edema of the bilateral lower extremities. CENTRAL NERVOUS SYSTEM ([employer]): No focal neurological deficit. Power is 5/5 in bilateral upper extremities. PSYCHIATRIC: The patient is anxious at this time. LABORATORY DATA: CBC showed a WBC of 21.1, hemoglobin 13.3, platelets of 390. BMP showed sodium 130, potassium 3.8, chloride 96, bicarbonate 23, BUN is 20, creatinine 1.1, calcium 7.9, phosphorus 3.1. CURRENT INPATIENT MEDICATIONS: The patient's medications were all reviewed by me. Intravenous (IV) fluids have been stopped. The patient continues to be on IV meropenem and azithromycin. ASSESSMENT: A 26-year-old male with no significant past medical history admitted this time with left-sided pleural effusion and left lower lobe consolidation. Nephrology service following the patient for management of symptomatic hyponatremia. PLAN: 1. Hyponatremia. The patient's sodium level is improved to 130 with IV fluid hydration. IV fluids have been stopped. Continue to encourage oral hydration for now. Basic metabolic panel (BMP) can be changed to every 12 hours now. 2. Sepsis secondary to left-sided pneumonia and parapneumonic effusion. The patient's cultures are negative so far. He is getting IV azithromycin, meropenem and vancomycin for broad-spectrum coverage. The patient got a repeat CT scan done yesterday, which shows extensive retroperitoneal inflammation, and CT scan of the abdomen was advised. 3. Hypokalemia. Hypokalemia is improved at this time. Potassium is 3.8. 4. Left-sided pleural effusion status post chest tube placement. Chest tube is draining well. He is being managed by Dr. Kat at this time. 5. Inflammation around the pancreas and evidence of extensive infiltrative pattern in the peripancreatic fat. The patient will get a CT scan with oral and IV contrast. However, I would hydrate the patient before the contrast. I am going to stop ketorolac because of risk of contrast-induced and non-steroidal anti-inflammatory drug (NSAID) induced nephropathy. MTDD
--- NOTE | 2017-05-23 08:19 | IPNPDOC ---
Text Note Date of Service The patient was seen on 05/23/17. NOTE Subjective: Pt states SOB is much improved. Denies CP/palpitations. Objective: Vitals: (see below) General: No acute distress, laying comfortably in bed. HEENT: Moist mucous membranes. Neck: No JVD or lymphadenopathy Cardiac: RRR, No murmurs Pulm: Diminished breath sounds/coarse crackles b/l L>R, . No wheezing, rhonchi. Left CT in place. Abd: NT/ND + BS Ext: No edema or cyanosis Labs (see below) Images: CT abdomen pelvis 05/22/17 Impression: 1. Severe acute pancreatitis, with diffuse inflammation and fluid throughout the upper abdomen. Infiltrative changes throughout the mesenteric. No evidence of pancreatic necrosis, pseudocyst formation, or abscess. 2. Large amount of abdominal ascites, with moderate amount of pelvic ascites seen in the left flank region and left retroperitoneal cavity. 3. There is no evidence of bowel obstruction. 4. No evidence of hydronephrosis or nephrolithiasis. 5. Minimal atelectasis in the lung bases bilaterally. CT chest 05/22/17 IMPRESSION: Left chest tube in place. Improved left pleural effusion. Some loculated air and fluid in the major fissure on the left. Consolidation and collapse in the left lower lobe of the lung. There is also an extensive infiltrative pattern in the peripancreatic fat, omental fat with fluid in the pericolic gutter and perisplenic regions of the left upper quadrant of the abdomen. This same infiltrative pattern is seen in the epicardial fat anterior to the heart. Consider CT study of the abdomen and pelvis with IV and oral contrast. Assessment/Plan 1. Severe sepsis secondary to bilateral pneumonia. Patient's on broad-spectrum antibiotics with vancomycin/meropenem/azithromycin. Dr. Crespo has been consulted as well. We'll follow blood cultures. CRP/leukocytosis improving. Still tachycardic. Lactic acidosis improved. 2. Large left pleural effusion status post chest tube placement by Dr. Kat. Chest tube draining. Cultures from the chest wound sent and pending 3. Severe acute pancreatitis. Lipase greater than [address] scan abdomen and pelvis with significant inflammation, however no necrosis or abscess. On IV fluids. We'll continue to monitor. Drinks alcohol 3x/week. 4. Extensive abdominal and pelvic ascites, now with loculated retroperitoneal fluid. Will discuss with Dr. Crespo, regarding possible IR drainage. 5. Hypokalemia- replaced 6. Symptomatic hyponatremia- hypovolemic hyponatremia. sodium 119 on presentation. Improved. Appreciate nephrology input. Continue IV fluids. 7.. Acute hypoxic respiratory failure- secondary to #1. Improved. 8. Metabolic encephalopathy- improved. DVT prophy: SCDs VS,Fishbone, I+O VS, Fishbone, I+O Laboratory Tests 05/22/17 12:13 Calcium Level 7.8 L 05/22/17 18:46 Calcium Level 8.0 L, Anion Gap 11 05/23/17 00:03 Calcium Level 7.9 L 05/23/17 05:30 Calcium Level 8.3 L, Red Blood Count 4.10 L, Mean Corpuscular Volume 93.2, Mean Corpuscular Hemoglobin 31.2, Mean Corpuscular Hemoglobin Concent 33.5, Red Cell Distribution Width 12.7, Neutrophils (%) (Auto) 91.2 H, Lymphocytes (%) (Auto) 4.2 L, Monocytes (%) (Auto) 2.6, Eosinophils (%) (Auto) 0.9, Basophils (%) (Auto ) 0.3, Neutrophils # (Auto) 18.3 H, Lymphocytes # (Auto) 1.0 L, Monocytes # ( Auto) 0.5, Eosinophils # (Auto) 0.2, Basophils # (Auto) 0.1, Phosphorus Level 3.7, Aspartate Amino Transf (AST/SGOT) 40 H, Alanine Aminotransferase (ALT/SGPT ) 39, Alkaline Phosphatase 210 H, Total Bilirubin 0.8, Total Protein 6.0 L, Albumin 2.0 L Vital Signs Date Time Temp Pulse Resp B/P (MAP) Pulse Ox O2 Delivery O2 Flow Rate FiO2 05/23/17 08:12 Nasal Cannula 2.0 05/23/17 07:22 95 05/23/17 07:22 115 22 05/23/17 04:00 96.3 148/90 (109) I&O- Last 24 Hours up to 6 AM 05/23/17 05:59 Intake Total 2715 ml Output Total 574 ml Balance 2141 ml JOSÉ ANTONIO CALIXTO MD May 23, 2017 08:19
[2017-05-23] MEDS: OMEPRAZOLE 20 MG CAP PO SCH (08:28)
[2017-05-23] MEDS: KCL 20MEQ IN D5/NS 1000ML 1,000 ML IV SCH (08:28)
--- NOTE | 2017-05-23 09:30 | REP ---
CHEST, TWO VIEWS: Two views of the chest are performed and compared to prior study of 05/22/2017. Tiny left pneumothorax is unchanged. Left chest tube is again noted. Parenchymal opacities inferiorly on the left are stable. There is mild discoid atelectasis in the right lung base. The remainder of the study is unchanged. IMPRESSION: Stable exam. Signed by Laurent Nix MD 05/23/2017 04:24 P
[2017-05-23] MEDS: KCL 20MEQ in NS 1000ML 1,000 ML IV SCH (12:04)
[2017-05-23 13:41] LABS: ANION GAP 10 MEQ/L (8-16); BLOOD UREA NITROGEN 16 MG/DL (7-18); CALCIUM LEVEL 8.6 MG/DL (8.5-10.1); CARBON DIOXIDE LEVEL 24 MEQ/L (21-32); CHLORIDE LEVEL 97 MEQ/L (98-107); CREATININE FOR GFR 0.83 MG/DL (0.70-1.30); GLOMERULAR FILTRATION RATE > 60.0 (>60); GLUCOSE, FASTING 119 MG/DL (70-105); POTASSIUM SERUM 4.1 MEQ/L (3.5-5.1); SODIUM LEVEL 131 MEQ/L (136-145)
--- NOTE | 2017-05-23 17:46 | IPN ---
DATE: 05/23/2017 SUBJECTIVE: Patient was seen and examined at the bedside today morning. Last 24 hour events were noted. Patient got a repeat CT scan of the chest done yesterday which showed improving left-sided pleural effusion, consolidation, and collapse in the left lower lobe of the lung, and there was extensive infiltrative pattern in the peripancreatic fat region, so a CT scan of the abdomen and pelvis was done as well with oral and IV contrast and that showed severe acute pancreatitis with diffuse inflammation and fluid throughout the upper abdomen and large amount of abdominal ascites with moderate amount of pelvic ascites as well. Patient otherwise is hemodynamically stable at this time. He continues to have elevated white cell count. Sodium is stable at 131. 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 He reports palpitations, but he otherwise reports that his shortness of breath is slightly better. He is able to eat and he denies any pain in the epigastrium. He reports mild left-sided chest tube site pain. Rest of review of systems is negative. OBJECTIVE: VITAL SIGNS: Temperature is 100.9 degrees Fahrenheit, blood pressure is 131/91, pulse is 129, respiratory rate of 24, saturating 98% on room air. INTAKE and OUTPUT: Urine output recorded is 425 mL yesterday, 550 mL so far today since overnight. Weight in the bed scale is 131.5 kg. PHYSICAL EXAMINATION: GENERAL: Patient is awake, alert, oriented times three, laying in bed, in no apparent distress at this time. HEAD and NECK EXAM: Extraocular muscles intact. Pupils equally round and reactive to light. Mucous membranes are moist. Neck is supple, there is no jugular venous distention (JVD). CARDIOVASCULAR: S1, S2, tachycardia. No murmur, rub, or gallop. RESPIRATORY: Decreased breath sounds at the left base and decreased vocal resonance in the left side as well. Patient has a chest tube on the left side. Chest is clear to auscultation on the right side. ABDOMEN: Soft. Mildly distended. Nontender. Dullness to percussion in the flank. MUSCULOSKELETAL: Normal range of movement. No edema of the extremities. Pulses are 2+. No cyanosis. CENTRAL NERVOUS SYSTEM: No focal neurological deficit. Power is 5/5 in bilateral upper extremities. PSYCHIATRIC: Normal mood and affect. LABORATORY REVIEW: CBC showed WBC of 20, hemoglobin 12.8, platelets are 416. BMP showed sodium 131, potassium 4.1, chloride 97, bicarbonate 24, BUN 16, creatinine 0.83. Microbiology: Body fluid culture is pending so far. IMAGING: A CT scan of the abdomen and pelvis done last night showed severe acute pancreatitis with diffuse inflammation and fluid throughout the upper abdomen, large amount of abdominal ascites. A CT scan of the chest done last night showed improved left pleural effusion, some loculated air and fluid in the major fissure on the left, consolidation and collapse in the left lower lobe. CURRENT INPATIENT MEDICATIONS: Patient's medications were all reviewed by me. He continues to be on IV azithromycin, IV meropenem, and vancomycin. Patient's IV fluids have been changed to KCl 20 mEq and normal saline at 100 mL/hour. Toradol has been stopped. Patient has been started on morphine 2 mg IV every 4 hours as needed for severe pain. ASSESSMENT: 26-year-old male with no significant past medical history admitted at this time because of large left-sided pleural effusion with left lower lobe consolidation requiring chest intubation and recent CT scan finding of severe acute pancreatitis with large abdominal ascites. PLAN: 1. Hyponatremia. Patient's hyponatremia is improving with IV fluid hydration. Sodium is up to 131 now. Continue the IV fluids now at 100 mL/hour. 2. Severe acute pancreatitis. Patient is asymptomatic. He is pain free. He is taking Percocet for left-sided chest pain which is controlling his abdominal pain as well. However, I have ordered IV morphine for severe pain as well. Continue IV fluid hydration. Patient is able to tolerate the oral diet at this time. 3. Sepsis, secondary to acute left-sided pleural effusion and pancreatitis. Patient is currently on vancomycin, azithromycin, and meropenem which should empirically cover any intraabdominal infection as well. Primary team is getting infectious disease on board. Consider doing ascitic tap and doing the evaluation of the ascitic fluid for bacterial peritonitis as well. 4. Left-sided pleural effusion. Patient is status post chest tube placement. Pleural effusion is improving. However, patient still has consolidation on the left lower lobe on the CT scan. 5. Hypokalemia. Potassium level is stable at 4.1. I have added the potassium to IV fluids. The plan of care was discussed with the hospitalist, Dr. Eulalio Calvo.
[2017-05-23] MEDS: AZITHROMYCIN INJ 500 MG, VIAL MATE ADAPTER 1 EACH in D5W 250 ML IV SCH (18:38)
[2017-05-23 18:55] LABS: ANION GAP 9 MEQ/L (8-16); BLOOD UREA NITROGEN 15 MG/DL (7-18); CALCIUM LEVEL 8.1 MG/DL (8.5-10.1); CARBON DIOXIDE LEVEL 25 MEQ/L (21-32); CHLORIDE LEVEL 96 MEQ/L (98-107); GLOMERULAR FILTRATION RATE > 60.0 (>60); GLUCOSE, FASTING 152 MG/DL (70-105); POTASSIUM SERUM 3.7 MEQ/L (3.5-5.1); SODIUM LEVEL 130 MEQ/L (136-145)
--- NOTE | 2017-05-23 18:57 | IPN ---
DATE: 05/23/2017 It is becoming more clear that Mr. Chaudhari has known pancreatitis and this is probably going to be a sympathetic effusion with compression of his left lower lobe. Surprisingly he has very little abdominal pain. He has a little bit of left upper quadrant pain but nothing in the epigastrium. His vital signs show a T-max of 100.9 with a heart rate that ranges between 115 and 129 in a sinus rhythm. Respiratory rate of 18-24 without the use of accessory muscles who is 98 to 95% saturated on 2 liters nasal cannula. His blood pressures are ranging between 131/91 to 118/72. His intake and output for the past 24 hours have been recorded as 3085 in and 574 out for a positivity of 2511 mL. He has put out 149 mL from the chest tube however the chest tube was knocked over and that output is questionable. He weighs 131.5 kg today compared to 128.5 kg yesterday. On physical examination, he has coarse rales in the left lower hemithorax. Along with decreased breath sounds. Percussion note is full to the diaphargam. Right side shows normal vesicular sounds. Cardiac exam is without murmurs, clicks, gallops or rubs. I cannot feel his PMI. S1 and S2 are normal. Abdomen is soft, surprisingly nontender, bowel sounds are positive. There is no hepatomegaly. No CVA tenderness. Extremities show trace pretibial edema. No calf tenderness. No differential swelling of the upper extremities. Skin is warm, dry and perfused without cyanosis or mottling including that of the nail beds and knees. Neck is supple. There is no jugular venous distention. No subcutaneous emphysema. Trachea is midline. Mouth shows his mucous membranes to be pink and moist. Lips and commissures are without lesions. No thrush. Eyes show his pupils to be equal and reactive. Extraocular motor intact. Sclera anicteric. Neuro shows II through XII intact with gross motor and gross sensation intact. Gait is not tested. Psychiatric shows him to be awake and alert, oriented times three with appropriate mood and affect and conversational. His white count today is 20.0 with hemoglobin and hematocrit of 12.8 and 38.2. Platelet count is 416. Differential shows 91% neutrophils, 4% lymphocytes and 2% monocytes. There are no immature forms and no toxic granulations. His sodium today is 130 with a potassium of 3.7. BUN and creatinine are 17 and 0.98. Total CO2 is 27. Albumin 2.0. AST and ALT are 40 and 39. There are no repeat lipase or amylase. His chest x-ray shows an obscured left hemidiaphragm. Right lung is without infiltrates. There looks to be a consolidation of the left lower lobe. Chest tube is in good place. I did obtain a CT of his chest yesterday to check for residual fluid. There is very little fluid left and the opacity is secondary to consolidation of the left lower lobe with an air fluid level in the mean fissure on the left side. Small amount of air in the thorax secondary to chest tube insertion. Most significantly however, CT shows a very edematous pancreas. IMPRESSION: 1. Pleural effusion probably sympathetic secondary to pancreatitis. 2. Pancreatitis. 3. Compression atelectasis of the left lower lobe. 4. Hyponatremia resolving. 5. Hypokalemia resolving. 6. Gastroenteritis resolving. PLAN AND DISCUSSION: As the chest tube output is eqvoical, I will leave it in another day and take it off suction. It looks as though as he is going to have pancreatitis. He does drink 3-4 times a week with 3-4 drinks a night of hard liquor. I do not see any gallstone on the CT scan. His pancreatitis may be alcohol related. However it does not sound as he does a lot of drinking to cause a pancreatitis. There looks to be family history of pancreatitis however the sister had gallstone pancreatitis. The family history of unrelated.
[2017-05-23 19:10] LABS: PHOSPHORUS LEVEL 2.7 MG/DL (2.5-4.9)
--- NOTE | 2017-05-23 23:11 | ECGEPIP ---
Stationary ECG Study [facility] Test Date: 2017-05-23 Pat Name: FLYNN DUBOSE Department: Room: G5455-76 Gender: M Mammography Technologist: MITCHEL : 1990 Requested By: JOSÉ ANTONIO CALIXTO Order Number: [id number] Reading MD: Daquan Reyes Measurements Intervals [place] Rate: 122 P: 38 NV: 151 QRS: 3 QRSD: 118 T: 44 QT: 316 QTc: 451 Interpretive Statements SINUS TACHYCARDIA LEFT VENTRICULAR HYPERTROPHY AND ST-T CHANGE No significant change compared with 05/20/2017. Electronically Signed On 05-23-2017 23:11:16 EDT by Daquan Reyes
--- NOTE | 2017-05-23 23:24 | CR ---
DATE OF CONSULTATION: 05/22/2017 I was asked to consult by hospitalist for evaluation of fever, pleural effusion and leukocytosis. HISTORY OF PRESENT ILLNESS: Pedrito is a pleasant 26-year-old white male who was in his usual state of health until a week prior to admission when he developed 48 hours of nausea, vomiting and diarrhea. The nausea and vomiting eventually resolved, the gastrointestinal (GI) symptoms resolved but he then developed myalgias, arthralgias and shortness of breath. He went to [facility] and was given Levaquin for shortness of breath, what felt to be pneumonia. After he was taking Levaquin, he started having mental status changes with hallucinations, confusion. He denied having any orthopnea or chest pain. He never had a cough or paroxysmal nocturnal dyspnea (PND). The patient was very short of breath, though. He progressively got worse and came to emergency room where he was noted to have leukocytosis, sodium of 119 and dehydration. A chest x-ray showed [id number] pleural effusion with complete compression of the left lower lobe. Dr. Kat was called to the emergency room (ER), and he had a chest tube placed. His oxygen saturation was 96% on 2 liters nasal cannula. The patient lives with his girlfriend who has not been ill, did not have a GI illness. They usually eat together. 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 He had no exposure, no tick bites or mosquito bites. PAST MEDICAL HISTORY: Negative. PAST SURGICAL HISTORY: Negative. ALLERGIES: None. SOCIAL HISTORY: He does not smoke but he chews tobacco. He drinks about three times a week, at times heavy. He has not traveled. He lives with his girlfriend and works for the [employer]. REVIEW OF SYSTEMS: On review of systems, he had nausea, vomiting, diarrhea. No cough but had significant shortness of breath. No lower extremity edema. No rashes. No paresthesias. He had generalized weakness. MEDICATIONS: - omeprazole 40 mg by mouth daily - morphine as needed - vancomycin 1 gram IV every 6 hours - meropenem 1 gram IV every 8 hours - Zithromax 500 mg IV every 24 hours - Tylenol as needed - Zofran as needed - Percocet two tablets by mouth every 4 hours as needed LABORATORY: On 05/22/2017, sodium 130, potassium 3.8, chloride 96, bicarbonate 23, BUN 20, creatinine 1.1, glucose 158, calcium 7.94, phosphorus 3.1, albumin 2 , AST 29, ALT 35, alkaline phosphatase 155, CRP 10.4, albumin 2. Sodium on admission was 119, white count 21.1, hemoglobin 13.3, hematocrit 38.3, platelets 390, 86% neutrophils, 5% lymphocytes, ESR 59. Toxic granulation, toxic vacuolation. Lipase 578 on 05/20/2017, down to 478 and amylase was 84. Blood cultures, two sets, were negative on 05/20/2017. Urine culture was negative. Respiratory virus panel by PCR negative. Influenza A and B negative. Pleural fluid culture was negative. Acid-fast bacillus smear and culture are pending. Chest CT showed a very large left pleural effusion with complete consolidation of the left lower lobe, inflammatory stranding in the anterior mediastinal fat. Head CT done for confusion was negative. CT of the abdomen done on 05/22/2017 showed severe acute pancreatitis with diffuse inflammation and fluid throughout the upper abdomen with large abdominal ascites and no evidence of bowel obstruction. PHYSICAL EXAM: H He is a sick-looking gentleman in moderate respiratory discomfort, anxious. Maximum temperature (T max) was 101 in the past 24 hours, currently 97.2, pulse 117, respirations 20, blood pressure 113/75 oxygen saturation 98% on 2 liters nasal cannula. General Appearance: sick looking man, flushed and in moderate respiratory discomfort. Heart: Normal, S1, S2, tachycardiac. No murmurs appreciated. Lungs: Diminished breath sounds with some crackles at the right base, left has bronchial breath sounds with a chest tube in place. Abdomen: Soft, nontender. No hepatosplenomegaly. Back: No costovertebral angle tenderness. Extremities: No clubbing, cyanosis or edema. No rashes. Oropharynx is clear with no thrush. No lesions. Neck is supple. No jugular venous distention (JVD). No bruits. No adenopathy. Neurologic: Exam normal. IMPRESSION: This is a 26-year-old gentleman who presented with what sounded like 48 hours of a gastrointestinal illness that followed to develop respiratory failure with a large left pleural effusion. He had, on CT, evidence also of acute pancreatitis with elevated lipase. Cultures so far have been negative. The etiology of this syndrome remains to be diagnosed. Viral illnesses can lead to pancreatitis, although unusual, some of the viruses that could do that are cytomegalovirus, hepatitis B, HIV, cryptosporidiosis but most likely, the patient had nausea, vomiting and diarrhea, ended up aspiration, having developing aspiration pneumonia. Although the patient states he has never had a cough, he also never had abdominal pain to suggest pancreatitis. PLAN: Suggest discontinuing IV vancomycin and IV Zithromax. There is no evidence of atypical pneumonia or methicillin-resistant Staphylococcus aureus (MRSA) infection. Continue IV meropenem to treat possible aspiration pneumonia and severe pancreatitis. Will obtain HIV and hepatitis panel. The patient has agreed on HIV testing. I would also obtain GI panel to rule out cryptosporidiosis. Thank you for the consultation. RJ
--- NOTE | 2017-05-23 23:37 | REP ---
Clinical: Right upper quadrant abdominal pain. Technique: Nix scale ultrasound using curved array transducer. Findings: The liver and pancreas are normal in contour, size, and echogenicity without focal hepatic or pancreatic lesions identified. The gallbladder demonstrates small amount of layering sludge and mild wall thickening to 3.7 mm without sonographic Alex's sign. No biliary ductal dilatation is appreciated, and the common bile duct measures 4.1 mm diameter. The right kidney is normal in reniform shape without hydronephrosis and measures 12.7 x 5.3 x 6.5 cm. No ascites. Visualized portions of the abdominal aorta normal. Impression: Gallbladder with a small amount of layering sludge and mild wall thickening. No further abnormalities are appreciated. Signed by Johnnie Vicente MD 05/23/2017 11:28 P
[2017-05-23] MEDS: NORCO, ANEXSIA 5/325MG TABLET (HYDROcodone/ACETAMINOPHEN) PO PRN (23:44)
[2017-05-23 23:54] LABS: OSMOLALITY URINE 206 MOSM/KG (500-800)
[2017-05-24] MEDS: LEVALBUTEROL 1.25 MG/0.5 ML CONCENTRATE NEB NEB SCH ×4 (01:22→21:24)
[2017-05-24] MEDS: KCL 20MEQ in NS 1000ML 1,000 ML IV SCH ×2 (02:58→08:00)
[2017-05-24] MEDS: PERCOCET 5MG/325MG TAB PO PRN ×4 (03:19→18:24)
[2017-05-24 03:47] VITALS: BP 152/89
[2017-05-24 04:47] VITALS: BP 140/86
[2017-05-24 05:53] LABS: BASO % 0.2 % (0.0-1.0); EOS # 0.2 K/mm3 (0.0-0.50); EOS % 1.1 % (0.0-3.0); LARGE UNSTAINED CELL # 0.1 K/mm3 (0.0-0.4); LYMPH % 6.5 % (24.0-44.0); MEAN CORPUSCULAR HEMOGLOBIN 31.4 pg (27.0-33.0); MEAN CORPUSCULAR HGB CONC 33.7 g/dl (32.0-36.5); MEAN CORPUSCULAR VOLUME 93.3 fl (80.0-96.0); MONO # 0.6 K/mm3 (0.0-0.8); MONO % 4.2 % (0.0-5.0); NEUTROPHILS # 11.6 K/mm3 (1.8-7.7); NEUTROPHILS % 86.9 % (36.0-66.0); PLATELET COUNT, AUTOMATED 412 k/mm3 (150-450); RED CELL DISTRIBUTION WIDTH 12.5 % (11.5-14.5); WHITE BLOOD COUNT 13.3 K/mm3 (4.0-10.0)
[2017-05-24 06:19] LABS: ALBUMIN 1.9 GM/DL (3.2-5.2); ALBUMIN/GLOBULIN RATIO 0.59 (1.00-1.93); ALKALINE PHOSPHATASE 190 U/L (45-117); ALT/SGPT 35 U/L (12-78); ANION GAP 6 MEQ/L (8-16); AST/SGOT 35 U/L (15-37); BILIRUBIN,TOTAL 0.7 MG/DL (0.2-1.0); BLOOD UREA NITROGEN 12 MG/DL (7-18); CALCIUM LEVEL 7.8 MG/DL (8.5-10.1); CARBON DIOXIDE LEVEL 27 MEQ/L (21-32); CHLORIDE LEVEL 100 MEQ/L (98-107); CREATININE FOR GFR 0.71 MG/DL (0.70-1.30); GLOMERULAR FILTRATION RATE > 60.0 (>60); GLUCOSE, FASTING 151 MG/DL (70-105); MAGNESIUM LEVEL 2.1 MG/DL (1.8-2.4); POTASSIUM SERUM 3.7 MEQ/L (3.5-5.1); SODIUM LEVEL 133 MEQ/L (136-145); TOTAL PROTEIN 5.1 GM/DL (6.4-8.2)
[2017-05-24 06:27] LABS: IMMUNOGLOBULIN G 803 MG/DL (681-1648); IMMUNOGLOBULIN M 67.6 MG/DL (40-230)
[2017-05-24 07:45] VITALS: BP 178/93
[2017-05-24] MEDS: OMEPRAZOLE 20 MG CAP PO SCH (07:48)
--- NOTE | 2017-05-24 08:11 | IPNPDOC ---
Text Note Date of Service The patient was seen on 05/24/17. NOTE Subjective: Tolerating a diet. No abd pain. States his SOB is much improved. Objective: Vitals: (see below) General: No acute distress, laying comfortably in bed. HEENT: Moist mucous membranes. Neck: No JVD or lymphadenopathy Cardiac: tachycardic , No murmurs Pulm: Diminished breath sounds/coarse crackles b/l L>R, . No wheezing, rhonchi. Left CT in place. Abd: NT/ND + BS Ext: No edema or cyanosis Labs (see below) Images: CT abdomen pelvis 05/22/17 Impression: 1. Severe acute pancreatitis, with diffuse inflammation and fluid throughout the upper abdomen. Infiltrative changes throughout the mesenteric. No evidence of pancreatic necrosis, pseudocyst formation, or abscess. 2. Large amount of abdominal ascites, with moderate amount of pelvic ascites seen in the left flank region and left retroperitoneal cavity. 3. There is no evidence of bowel obstruction. 4. No evidence of hydronephrosis or nephrolithiasis. 5. Minimal atelectasis in the lung bases bilaterally. CT chest 05/22/17 IMPRESSION: Left chest tube in place. Improved left pleural effusion. Some loculated air and fluid in the major fissure on the left. Consolidation and collapse in the left lower lobe of the lung. There is also an extensive infiltrative pattern in the peripancreatic fat, omental fat with fluid in the pericolic gutter and perisplenic regions of the left upper quadrant of the abdomen. This same infiltrative pattern is seen in the epicardial fat anterior to the heart. Consider CT study of the abdomen and pelvis with IV and oral contrast. Abd u/s 05/23/17 Impression: Gallbladder with a small amount of layering sludge and mild wall thickening. No further abnormalities are appreciated. Assessment/Plan 1. Severe sepsis ? secondary to pneumonia. Patient's on broad-spectrum antibiotics - meropenem. ID on board - with recommendations to d/c vancomycin/ azithromycin. Blood cultures negative thus far. CRP/leukocytosis improving. Still tachycardic. Lactic acidosis improved. 2. Large left pleural effusion status post chest tube placement by Dr. Kat. Likely 2/2 severe pancreatitis. Chest tube draining. Cultures from the chest wound sent and pending 3. Severe acute pancreatitis. Lipase greater than [address] CAT scan abdomen and pelvis with significant inflammation, however no necrosis or abscess. On IV fluids. We'll continue to monitor. Drinks alcohol 3x/week. Counseled on alcohol cessation. Abd u/s (see above) 4. Extensive abdominal and pelvic ascites,retroperitoneal fluid. Spoke with Dr. Diaz - on phlegmatous changes. No abscess or loculated fluid to drain - recommends continued treatment and re-imaging. 5. Hypokalemia- replaced 6. Symptomatic hyponatremia- hypovolemic hyponatremia. sodium 119 on presentation. Improved. Appreciate nephrology input. Continue IV fluids. 7.. Acute hypoxic respiratory failure- secondary to #1. Improved. 8. Metabolic encephalopathy- improved. DVT prophy: SCDs VS,Fishbone, I+O VS, Fishbone, I+O Laboratory Tests 05/23/17 12:04 Calcium Level 8.6 05/23/17 18:23 Anion Gap 9 05/24/17 05:37 Calcium Level 7.8 L, Red Blood Count 3.76 L, Mean Corpuscular Volume 93.3, Mean Corpuscular Hemoglobin 31.4, Mean Corpuscular Hemoglobin Concent 33.7, Red Cell Distribution Width 12.5, Neutrophils (%) (Auto) 86.9 H, Lymphocytes (%) (Auto) 6.5 L, Monocytes (%) (Auto) 4.2, Eosinophils (%) (Auto) 1.1, Basophils (%) (Auto ) 0.2, Neutrophils # (Auto) 11.6 H, Lymphocytes # (Auto) 1.0 L, Monocytes # ( Auto) 0.6, Eosinophils # (Auto) 0.2, Basophils # (Auto) 0.0, Aspartate Amino Transf (AST/SGOT) 35, Alanine Aminotransferase (ALT/SGPT) 35, Alkaline Phosphatase 190 H, Total Bilirubin 0.7, Total Protein 5.1 L, Albumin 1.9 L Vital Signs Date Time Temp Pulse Resp B/P (MAP) Pulse Ox O2 Delivery O2 Flow Rate FiO2 05/24/17 07:58 Room Air 05/24/17 04:47 140/86 (104) 05/24/17 04:00 100.4 116 20 92 05/23/17 16:00 2.0 I&O- Last 24 Hours up to 6 AM 05/24/17 06:00 Intake Total 3960 ml Output Total 2100 ml Balance 1860 ml JOSÉ ANTONIO CALIXTO MD May 24, 2017 08:11
[2017-05-24] MEDS: MEROPENEM INJ 1 GM in D5W MINI-BAG PLUS 100 ML IV SCH ×2 (08:24→15:54)
--- NOTE | 2017-05-24 09:21 | REP ---
TWO VIEW CHEST: Two views of the chest are performed and compared to a prior study of 05/23/2017. Left inferior lung opacities are stable. There is a tiny left pneumothorax which is unchanged. There is a left chest tube again noted unchanged. Mild linear discoid atelectasis in the right base is stable. IMPRESSION: Stable exam. Signed by Laurent Nix MD 05/24/2017 05:35 P
[2017-05-24 11:55] VITALS: BP 165/72
--- NOTE | 2017-05-24 13:06 | IPN ---
DATE OF SERVICE: 05/23/2017 Pedrito was seen this afternoon going down to x-ray for an ultrasound of abdominal fluid. He has been followed up by Dr. Kat, and I have discussed the case with Dr. Kat, who feels the effusion with sympathetic from pancreatitis. He denies any abdominal pain. The nausea, vomiting, and diarrhea have resolved. He continues with a fever of 100.9, but later in the afternoon, it was 97.7, pulse 122, respirations 20, blood pressure 146/85, oxygen (O2) saturation 94% on room air. Heart: Normal S1, S2, tachycardiac. Lungs: Diminished breath sounds with bronchial breath sounds on the left side where the chest tube is. Extremities: No edema. No calf tenderness. Left upper extremity has an intravenous (IV) line which looks like it infiltrated with some redness. LABORATORIES: White count is 20, hemoglobin 12.8, hematocrit 38.2, platelets 416, 91% neutrophils, 4% lymphocytes. Sodium 130, potassium 3.7, chloride 96, bicarbonate 25, BUN 15, creatinine 0.8, glucose 152, calcium 8.1, phosphorus 2.7, albumin 2, CRP 12.8. Blood cultures, two sets were negative. Urine culture was negative. Respiratory viral panel, which has influenza, respiratory syncytial virus (RSV), parainfluenza, adenovirus, enteroviruses all was negative. Mycoplasma body fluid culture from pleural fluid was negative. Anaerobic culture was negative. AFB fungal smear and culture are pending. IMAGING: CT of the abdomen and pelvis done on 05/22/2017 shows extensive inflammation and edema around the pancreas. No pancreatic necrosis or pseudocyst is seen at the time. A large amount of abdominal ascites with infiltrated changes throughout the mesentery. The liver, spleen, kidneys, gallbladder, and adrenal glands are unremarkable. No evidence of abdominal adenopathy. There is a fluid tracking along the retroperitoneum into the lower pelvis, now loculated, predominately in the left flank region. There is no hydronephrosis or nephrolithiasis. Chest x-ray is stable with a left pneumothorax. The left chest tube in place. Parenchymal opacities on the left side and discoid atelectasis on the right side. IMPRESSION: A 26-year-old gentleman who presented with what sounded like a gastrointestinal illness with a couple days of nausea, vomiting, and diarrhea that has developed into an acute pancreatitis and a pleural effusion. The patient has done much better after drainage of the pleural effusion. He never had a productive cough suggestive of pneumonia. There is also compressive atelectasis of the left lower lobe. Possible infectious disease causes of pancreatitis that would be preceded by nausea and vomiting and diarrhea are Cryptosporidiosis, cytomegalovirus. Legionnaire's can cause, as well, pancreatitis, HIV, hepatitis B, or other causes of pancreatitis of infectious etiology, although the patient does not have any risk factors. He has been agreed to be tested. PLAN: Will discontinue IV vancomycin and Zithromax. The patient does not seem to have a pulmonary component to this infection. It seems more of a pancreatitis with a sympathetic pleural effusion. There are no cultures that are positive for methicillin-resistant Staphylococcus aureus (MRSA). The patient does not have atypical pneumonia. Continue meropenem. Discontinue vancomycin and Zithromax. The case has been discussed with Dr. Calvo and Dr. Kat, as well as his parents.
[2017-05-24 16:00] VITALS: BP 130/91
--- NOTE | 2017-05-24 17:49 | IPN ---
DATE: 05/24/2017 Mr. Chaudhari is seen this morning on his bedside. He is feeling better today and reports improved dyspnea. He denies any abdominal pain, nausea or vomiting. PHYSICAL EXAMINATION: Temperature 98.2 degrees Fahrenheit, heart rate 136 per minute and respiratory rate 24 per minute. Blood pressure 178/93 mmHg and oxygen saturation 95% on room air. Head: Is atraumatic. Neck is supple and without JVD or thyroid enlargement. Heart: Sounds are irregular and tachycardiac. Lungs with diminished breath sounds. Left-sided chest tube is present. Abdomen is soft, somewhat full, but nontender. Bowel sounds are present. Extremities: Without cyanosis or clubbing. Neurologically he is awake, alert and oriented times three. Today's labs show WBC count 13.3, hemoglobin 11.8 and hematocrit 35.1. Sodium 133 and potassium 3.7. BUN 12 and creatinine 0.71. Glucose 151 and calcium 7.8. C-reactive protein is 11.3. PROBLEMS: 1. Hyponatremia. Sodium level has improved nicely. At that present we will avoid any diuretics. He is receiving IV normal saline with potassium chloride, which is appropriate. 2. Pneumonia and pleural effusion. The patient remains on antibiotics and seems to be improving nicely. Chest tube is still draining some fluid. 3. Acute pancreatitis. The patient is currently asymptomatic and tolerating oral intake well. From renal standpoint, the patient is doing very well and his sodium level has improved to almost a normal level. No further nephrology followup is indicated. I am signing off this case. Please do not hesitate to call back should you need any further assistance.
[2017-05-24] MEDS: NORCO, ANEXSIA 5/325MG TABLET (HYDROcodone/ACETAMINOPHEN) PO PRN (19:01)
[2017-05-24 20:00] VITALS: BP 135/82
[2017-05-25] VITALS (7 sets, daily range): BP systolic 128–159; BP diastolic 81–96
[2017-05-25] MEDS: MEROPENEM INJ 1 GM in D5W MINI-BAG PLUS 100 ML IV SCH ×3 (00:46→15:30)
[2017-05-25] MEDS: PERCOCET 5MG/325MG TAB PO PRN ×3 (00:47→13:59)
[2017-05-25] MEDS: LEVALBUTEROL 1.25 MG/0.5 ML CONCENTRATE NEB NEB SCH ×4 (00:57→20:27)
[2017-05-25] MEDS: MORPHINE 2 MG/ML 1ML SYRINGE IV PRN ×3 (01:50→20:46)
[2017-05-25 07:00] LABS: BASO % 0.4 % (0.0-1.0); EOS # 0.2 K/mm3 (0.0-0.50); LARGE UNSTAINED CELL # 0.1 K/mm3 (0.0-0.4); LARGE UNSTAINED CELL % 1.2 % (0.0-4.0); LYMPH # 1.1 K/mm3 (1.5-6.5); MEAN CORPUSCULAR HEMOGLOBIN 31.6 pg (27.0-33.0); MEAN CORPUSCULAR HGB CONC 34.6 g/dl (32.0-36.5); MEAN CORPUSCULAR VOLUME 91.3 fl (80.0-96.0); MONO # 0.4 K/mm3 (0.0-0.8); MONO % 3.9 % (0.0-5.0); NEUTROPHILS # 7.7 K/mm3 (1.8-7.7); NEUTROPHILS % 81.5 % (36.0-66.0); PLATELET COUNT, AUTOMATED 446 k/mm3 (150-450); RED CELL DISTRIBUTION WIDTH 12.4 % (11.5-14.5); WHITE BLOOD COUNT 9.4 K/mm3 (4.0-10.0)
[2017-05-25 07:22] LABS: ALBUMIN 1.8 GM/DL (3.2-5.2); ALBUMIN/GLOBULIN RATIO 0.47 (1.00-1.93); ALKALINE PHOSPHATASE 160 U/L (45-117); ALT/SGPT 35 U/L (12-78); ANION GAP 9 MEQ/L (8-16); AST/SGOT 34 U/L (15-37); BILIRUBIN,TOTAL 0.5 MG/DL (0.2-1.0); BLOOD UREA NITROGEN 10 MG/DL (7-18); CALCIUM LEVEL 8.2 MG/DL (8.5-10.1); CARBON DIOXIDE LEVEL 26 MEQ/L (21-32); CHLORIDE LEVEL 101 MEQ/L (98-107); CREATININE FOR GFR 0.61 MG/DL (0.70-1.30); GLOMERULAR FILTRATION RATE > 60.0 (>60); GLUCOSE, FASTING 111 MG/DL (70-105); MAGNESIUM LEVEL 2.1 MG/DL (1.8-2.4); POTASSIUM SERUM 3.7 MEQ/L (3.5-5.1); SODIUM LEVEL 136 MEQ/L (136-145); TOTAL PROTEIN 5.6 GM/DL (6.4-8.2)
[2017-05-25] MEDS: OMEPRAZOLE 20 MG CAP PO SCH (08:50)
--- NOTE | 2017-05-25 09:34 | REP ---
Chest x-ray: Two views. History: Pleural effusion. Comparison chest x-ray May 24, 2017. Findings: A tiny left pneumothorax is again just barely visible decreased in size. There is elevation of the left hemidiaphragm and some pleural opacity at the left base consistent with some remaining pleural fluid. Left chest tube has been removed. There is some discoid atelectasis in the left perihilar region. The right lung shows minimal plate-like atelectasis but is otherwise clear. Signed by Malik Torres MD 05/25/2017 09:36 A
--- NOTE | 2017-05-25 10:17 | IPNPDOC ---
Text Note Date of Service The patient was seen on 05/25/17. NOTE Subjective: Tolerating a regular diet. No abd pain. Some pain at the chest tube site. No CP/SOB. Objective: Vitals: (see below) General: No acute distress, laying comfortably in bed. HEENT: Moist mucous membranes. Neck: No JVD or lymphadenopathy Cardiac: tachycardic , No murmurs Pulm: Diminished breath sounds/coarse crackles b/l L>R, . No wheezing, rhonchi. Left CT removed. Bandage in place. Mild tenderness. No bleeding. Abd: NT/ND + BS Ext: No edema or cyanosis Labs (see below) Images: CT abdomen pelvis 05/22/17 Impression: 1. Severe acute pancreatitis, with diffuse inflammation and fluid throughout the upper abdomen. Infiltrative changes throughout the mesenteric. No evidence of pancreatic necrosis, pseudocyst formation, or abscess. 2. Large amount of abdominal ascites, with moderate amount of pelvic ascites seen in the left flank region and left retroperitoneal cavity. 3. There is no evidence of bowel obstruction. 4. No evidence of hydronephrosis or nephrolithiasis. 5. Minimal atelectasis in the lung bases bilaterally. CT chest 05/22/17 IMPRESSION: Left chest tube in place. Improved left pleural effusion. Some loculated air and fluid in the major fissure on the left. Consolidation and collapse in the left lower lobe of the lung. There is also an extensive infiltrative pattern in the peripancreatic fat, omental fat with fluid in the pericolic gutter and perisplenic regions of the left upper quadrant of the abdomen. This same infiltrative pattern is seen in the epicardial fat anterior to the heart. Consider CT study of the abdomen and pelvis with IV and oral contrast. Abd u/s 05/23/17 Impression: Gallbladder with a small amount of layering sludge and mild wall thickening. No further abnormalities are appreciated. Assessment/Plan 1. Severe sepsis secondary ? pneumonia. Patient's on broad-spectrum antibiotics - meropenem. ID on board - with recommendations to d/c vancomycin/ azithromycin. Blood cultures negative thus far. CRP/leukocytosis improving. Tachycardic improving. Lactic acidosis improved. 2. Large left pleural effusion status post chest tube placement by Dr. Kat. Likely 2/2 severe Pancreatitis. s/p Chest tube. Cultures from the chest wound sent and pending 3. Severe acute pancreatitis. Lipase greater than 500 on admission. CAT scan abdomen and pelvis with significant inflammation, however no necrosis or abscess. On IV fluids. We'll continue to monitor. Drinks alcohol 3x/week. Counseled on alcohol cessation. Abd u/s (see above). TG wnl 4. Extensive abdominal and pelvic ascites,retroperitoneal fluid. Spoke with Dr. Diaz - on phlegmatous changes. No abscess or loculated fluid to drain - recommends continued treatment and re-imaging. 5. Hypokalemia- replaced 6. Symptomatic hyponatremia- hypovolemic hyponatremia. sodium 119 on presentation. Improved. Appreciate nephrology input. Continue IV fluids. 7.. Acute hypoxic respiratory failure- secondary to #1. Improved. 8. Metabolic encephalopathy- improved. DVT prophy: SCDs VS,Fishbone, I+O VS, Fishbone, I+O Laboratory Tests 05/25/17 06:25 Red Blood Count 4.00 L, Mean Corpuscular Volume 91.3, Mean Corpuscular Hemoglobin 31.6, Mean Corpuscular Hemoglobin Concent 34.6, Red Cell Distribution Width 12.4, Neutrophils (%) (Auto) 81.5 H, Lymphocytes (%) (Auto) 11.0 L, Monocytes (%) (Auto) 3.9, Eosinophils (%) (Auto) 2.0, Basophils (%) ( Auto) 0.4, Neutrophils # (Auto) 7.7, Lymphocytes # (Auto) 1.1 L, Monocytes # ( Auto) 0.4, Eosinophils # (Auto) 0.2, Basophils # (Auto) 0.0, Calcium Level 8.2 L , Aspartate Amino Transf (AST/SGOT) 34, Alanine Aminotransferase (ALT/SGPT) 35, Alkaline Phosphatase 160 H, Total Bilirubin 0.5, Total Protein 5.6 L, Albumin 1.8 L Vital Signs Date Time Temp Pulse Resp B/P (MAP) Pulse Ox O2 Delivery O2 Flow Rate FiO2 05/25/17 09:33 18 05/25/17 08:30 99.0 117 159/96 (117) 96 Room Air 05/23/17 16:00 2.0 I&O- Last 24 Hours up to 6 AM 05/25/17 06:00 Intake Total 3000 ml Output Total 1430 ml Balance 1570 ml JOSÉ ANTONIO CALIXTO MD May 25, 2017 10:17
--- NOTE | 2017-05-25 11:06 | IPN ---
DATE: 05/24/2017 Mr. Chaudhari still is not complaining of much abdominal pain, if any. He had some loose stools but not sima diarrhea. His pain is being well controlled at the chest tube insertion site with oral pain medications and Toradol. His vital signs show a maximum temperature (t-max) of 100.8 with a heart rate that ranges between 116 and 124 in a sinus rhythm. Respiratory rate of 18-24 without the use of accessory muscles who is 94 to 95% saturated on room air. His blood pressures are ranging between 165/72 to 178/93. His intake and output for the past 24 hours have been recorded as 3120 in and 1600 out for a positivity of 1520 mL. He has put out 75 mL from the chest tube and there is no air leak. His weight today is 131.1 kg compared to 131.5 kg yesterday. PHYSICAL EXAMINATION: LUNGS: He still has some faint rales and rhonchi in the left lower hemithorax. Percussion note is full to the diaphragm on either side. Right lung shows normal vesicular sounds. CARDIAC EXAM: Without murmurs, clicks, gallops or rubs. I cannot feel his point of maximum impulse (PMI). S1, S2 are normal. ABDOMEN: Completely soft, nontender. Bowel sounds positive. There is no hepatomegaly. No costovertebral angle tenderness. EXTREMITIES: Show trace pretibial edema. No calf tenderness. No differential swelling of the upper extremities. SKIN: Warm, dry and perfused without cyanosis or mottling, including that of the nail beds and knees. NECK: Supple. There is no jugular venous distention. No subcutaneous emphysema. Trachea is midline. MOUTH: Shows his mucous membranes to be pink and moist. Lips and commissures without lesions. There is no thrush. EYES: Show his pupils to be equal and reactive. Extraocular motion intact. Sclerae anicteric. NEUROLOGIC: Shows II through XII intact with gross motor and gross sensation intact. Gait is not tested. PSYCHIATRIC: Shows him to be awake and alert, oriented times three with appropriate mood and affect and conversational. His white count today is down to 13.3 from 20.0 yesterday. Hemoglobin and hematocrit are 11.8 and 35.1, slightly down from yesterday's 12.8 and 38.2, explained by hemodilution. Platelet count is 412 and stable. Differential shows 86% neutrophils, 6% lymphocytes and 4% monocytes. There are no immature forms and no toxic granulations. His electrolytes show continuing improving sodium of 133, potassium 3.7. BUN and creatinine are 12 and 0.71. Glucose is 151 with a calcium of 7.8 and a corresponding albumin of 1.9. His serology for HIV are negative, as is his hepatitis B surface antigen. Microbiology showed no growth aerobically in the pleural fluid and no growth anaerobically. His chest x-ray shows today still shows consolidative changes in the left hemithorax. The diaphragm border on the left is still obscured. The same infiltrative consolidative process is down on the lateral film. Right lung looks clear and right costophrenic angle is sharp. IMPRESSION: 1. Pleural effusion probably sympathetic secondary to pancreatitis. 2. Pancreatitis of unknown origin. 3. Compression atelectasis of the left lower lobe. 4. Hyponatremia, resolved. 5. Hypokalemia resolving. 6. Gastroenteritis resolving. PLAN AND DISCUSSION: I spoke with Dr. Crespo over the phone yesterday trying to figure out the source of his pancreatitis. It does sound infectious and in speaking with her and doing further searching there are certainly known viral pancreatitides. This would correspond with his developing what sounds to be initial gastroenteritis. Various viruses that have been implicated with acute pancreatitis can include Cocksackie B, cytomegalovirus and mumps, hepatitis B, and herpes, along with Legionella mycoplasma and Salmonella as bacterial causes and Aspergillus as a fungal cause. His triglycerides are within normal range, thus ruling out hyperlipidemia as a cause of his pancreatitis. He has only put out 75 mL from the chest tube. I will remove his chest tube today. Again, surprisingly, he is not having abdominal pain and is taking orally okay, although the usual treatment for pancreatitis is a nothing by mouth status. NPO status is usually maintained until the patient's symptoms have resolved; however, he never had any real pancreatitis symptoms so it is really difficult to invoke not feeding him. Dr. Crespo has ordered Legionella, Streptococcus pneumoniae serologies. As noted in the results, the hepatitis B antigen and HIV serologies are negative.
[2017-05-25] MEDS ORDERED: SLF 3 ML SYR IV PRN (11:30)
[2017-05-25] MEDS: SLF 3 ML SYR IV SCH ×2 (13:25→23:11)
[2017-05-25] MEDS ORDERED: ISOVUE-370 76% 100ML VIAL (Q9967) As Ordered ONE (18:29)
--- NOTE | 2017-05-25 19:10 | REPUSA ---
CT of the abdomen and pelvis with and without contrast Clinical statement: Pain. Technique: Multiple axial CT images were obtained from the base of the lungs through the floor of the pelvis utilizing 5 mm axial slices before and after after administration of oral and nonionic intrav enous contrast. Coronal and sagittal reconstructions were also obtained. Comparison: 05/22/2017. Findings: Chest: There is minimal atelectasis in the right lower lobe. There is extensive infiltrate and consol idation in the left lower lobe. Additionally, there is a loculated gas and fluid collection in the le ft lower lung, measuring approximately 6.5 x 5.4 cm. A small anterior pneumothorax is seen in the lef t lung base. Abdomen: There is extensive inflammation and edema surrounding the entirety of the pancreas. No discr ete evidence of pancreatic necrosis is seen. There is no pseudocyst formation noted at this time. The re is no evidence of abscess. Large scattered amounts of abdominal ascites and infiltrative changes a re seen throughout the mesentery. The inflammatory infiltrative changes appear to extend throughout t he colon, predominately transverse colon, although fluid is tracking along the left flank. The liver , spleen, kidneys, gallbladder, and adrenal glands are unremarkable. The aorta is within normal limit s. There is no evidence of abdominal lymphadenopathy. Pelvis: There is a large amount of fluid in inflammatory changes throughout the left lower abdomen, a long the left leg. The bowel appears to be involved, but no focal obstructive bowel changes are seen. The urinary bladder is within normal limits. The other pelvic structures appear grossly intact. Ther e is no evidence of pelvic lymphadenopathy or ascites. Bones: There are no suspicious osseous abnormalities seen. Impression: 1. Severe pancreatitis as described. 2. The extensive mesenteric inflammation and fluid throughout the upper abdomen in left flank of the pelvis are grossly stable since the prior study. No discrete evidence of abscess. 3. Diffuse infiltrative inflammatory changes.the mesentery, involving the majority of the colon. No d iscrete evidence of bowel obstruction is seen. 4. Moderate atelectasis in consolidation in the left lower lung. There appears to be a loculated gas and fluid collection in the left lower lung which was not appreciative the prior study. This could re present an empyema. Clinical correlation is suggested. 5. Small anterior pneumothorax of the left lung base, not previously described.
--- NOTE | 2017-05-25 19:22 | ECHO ---
DATE OF PROCEDURE: 05/25/2017 REFERRING PHYSICIAN: Dr. Calvo INDICATION: Abnormal EKG. HEIGHT: 187 cm WEIGHT: 131 kg DIMENSIONS: IVS: 1.2 LV: 4.6 LVPW: 1.2 LA: 3.4 Aorta: 3.9 FINDINGS: The study is of rather limited technical quality corresponding to patient's body habitus. Left ventricle is of normal size and likely hyperdynamic contractility. I estimate EF around 70%. Visualization though was quite poor. Mild LVH is noted. Right ventricle does not appear grossly enlarged. Both atria are probably normal. Aortic valve was poorly seen but grossly appears normal. Same applies to mitral and tricuspid valves. Pulmonic valve visualization was fairly decent and the valve appears normal. No pericardial effusion is noted. Inferior vena cava is normal size. Aortic root is borderline enlarged (3.9 cm). Aortic arch and abdominal aorta appear normal. Doppler interrogation reveals no significant aortic and mitral valve disease. There is trace tricuspid insufficiency. Current calculated pulmonary artery pressure is on upper limits of normal values. Pulmonic valve is functionally competent. Evaluation of diastolic function is inconclusive. The patient has tachycardia during study with heart rate around 110 beats per minute and there is fusion of E and A waves on mitral inflow. CONCLUSIONS: 1. Study is of limited technical quality. 2. Normal LV size with mild LVH and likely hyperdynamic LV systolic function. Unable to estimate diastolic function. 3. No significant valvular disease. 4. Likely normal central venous pressure and pulmonary artery pressure. 5. Borderline dilated aortic root (3.9 cm, considering patient's size, probably on upper limits of normal values). COMMENT: Subacute bacterial endocarditis (SBE) prophylaxis is not recommended. MTDD
--- NOTE | 2017-05-25 23:22 | IPN ---
DATE: 05/25/2017 Mr. Chaudhari today is now complaining of some epigastric pain. This radiates into his back and also involves the chest tube insertion site. I think that the pain is secondary now to his pancreatitis rather than the actual chest tube insertion site. Chest tube was removed yesterday. He is not complaining of shortness of breath, nor is he complaining of coughing. His vital signs show his maximum temperature (Tmax) of 99.4 with a heart rate that ranges between 117 and 136 in a sinus rhythm. His respiratory rate is 16-18 without use of accessory muscles. He is 96% saturated on room air, and his blood pressure is ranging between 159/96 to 140/85. His intake and output the past 24 hours has been recorded as 3180 in and 1855 out for a positivity of 1300 mL. Chest tube was removed yesterday. On physical examination, his lungs show E-to-A egophony in the left lower hemithorax with bronchophony and rales in the left lower hemithorax. Right lung shows normal vesicular sounds. Percussion note is still dull at the left hemithorax in the inferior portion. Cardiac exam is without murmurs, clicks, gallops, or rubs. I cannot feel his point of maximal impulse (PMI). S1 and S2 are normal. Abdomen is soft and nontender. Bowel sounds are positive. There is no hepatomegaly. No costovertebral angle (CVA) tenderness. Extremities show no pretibial edema, no calf tenderness, and no differential swelling of the upper extremities. Skin is warm, dry, and perfused without cyanosis or mottling, including that of the nail beds and the knees. Neck is supple. There is no jugular venous distention. No subcutaneous emphysema. Trachea is midline. Mouth shows his mucous membranes to be pink and moist. Lips and commissures without lesions. There is no thrush. Eyes show his pupils to be equal and reactive. Extraocular muscles intact. Sclerae are nonicteric. Neurological shows II-XII intact along with gross motor and gross sensation intact. Gait is not tested. Psychiatric shows him to be awake and alert, oriented times three with appropriate mood and affect, and conversational. His white count today is down to 9.4 with a hemoglobin and hematocrit of 12.7 and 36.6. Platelet count is 446, and differential shows 81% neutrophils, 11% lymphocytes, 3% monocytes. There are no immature forms or toxic granulations. Electrolytes are normal with a BUN and creatinine of 10 and 0.61. Calcium is 8.2 with a corresponding albumin of 1.8. Magnesium is 2.1. There are no new serologies available. There is no new microbiology with him not growing any organisms either aerobically or anaerobically from the pleural fluid. His chest x-ray today shows marked improvement in the visibility of the left hemidiaphragm. I can now see the border of the diaphragm. He still has consolidative changes on both the PA and the lateral views, however. Right lung is still clear with sharp costophrenic angles and no infiltrates. IMPRESSION: 1. Sympathetic pleural effusion secondary to pancreatitis. 2. Pancreatitis of unknown origin. 3. Compression atelectasis in left lower lobe. 4. Hyponatremia, resolved. 5. Hypokalemia, resolved. 6. Gastroenteritis, resolving. From a thoracic surgical point of view, patient is improving and doing much better. The pleural effusion is under control and not reaccumulating. Furthermore, his compression atelectasis and/or consolidation is improving by chest x-ray. I will, therefore, sign off the case to be reconsulted on an as-needed basis. I have removed his chest tube dressing and the wound is closed and healing well, and we will keep it open to old fashioned air. I would recommend that we continue to do daily chest x-rays.
[2017-05-26 00:06] LABS: ORGANISM ID Not indicated. (.); SPECIMEN SOURCE Urine (.)
[2017-05-26] MEDS: LEVALBUTEROL 1.25 MG/0.5 ML CONCENTRATE NEB NEB SCH ×4 (01:04→21:00)
[2017-05-26 05:10] VITALS: BP 145/96
[2017-05-26 06:01] LABS: BASO % 0.6 % (0.0-1.0); EOS # 0.2 K/mm3 (0.0-0.50); EOS % 2.4 % (0.0-3.0); LARGE UNSTAINED CELL # 0.1 K/mm3 (0.0-0.4); LARGE UNSTAINED CELL % 0.8 % (0.0-4.0); LYMPH # 1.2 K/mm3 (1.5-6.5); MEAN CORPUSCULAR HEMOGLOBIN 31.5 pg (27.0-33.0); MEAN CORPUSCULAR HGB CONC 34.3 g/dl (32.0-36.5); MEAN CORPUSCULAR VOLUME 91.8 fl (80.0-96.0); MONO # 0.4 K/mm3 (0.0-0.8); NEUTROPHILS # 6.5 K/mm3 (1.8-7.7); NEUTROPHILS % 77.3 % (36.0-66.0); PLATELET COUNT, AUTOMATED 482 k/mm3 (150-450); RED CELL DISTRIBUTION WIDTH 12.3 % (11.5-14.5); WHITE BLOOD COUNT 8.4 K/mm3 (4.0-10.0)
[2017-05-26 06:17] LABS: ALBUMIN/GLOBULIN RATIO 0.51 (1.00-1.93); ALKALINE PHOSPHATASE 157 U/L (45-117); ALT/SGPT 35 U/L (12-78); ANION GAP 7 MEQ/L (8-16); AST/SGOT 29 U/L (15-37); BILIRUBIN,TOTAL 0.6 MG/DL (0.2-1.0); BLOOD UREA NITROGEN 10 MG/DL (7-18); CALCIUM LEVEL 8.4 MG/DL (8.5-10.1); CARBON DIOXIDE LEVEL 29 MEQ/L (21-32); CHLORIDE LEVEL 101 MEQ/L (98-107); CREATININE FOR GFR 0.71 MG/DL (0.70-1.30); GLOMERULAR FILTRATION RATE > 60.0 (>60); GLUCOSE, FASTING 108 MG/DL (70-105); MAGNESIUM LEVEL 2.1 MG/DL (1.8-2.4); POTASSIUM SERUM 3.7 MEQ/L (3.5-5.1); SODIUM LEVEL 137 MEQ/L (136-145); TOTAL PROTEIN 5.9 GM/DL (6.4-8.2)
[2017-05-26] MEDS: SLF 3 ML SYR IV SCH ×3 (06:36→19:37)
[2017-05-26 08:00] VITALS: BP 133/94
[2017-05-26] MEDS: MEROPENEM INJ 1 GM in D5W MINI-BAG PLUS 100 ML IV SCH ×4 (08:10→15:49)
[2017-05-26] MEDS: OMEPRAZOLE 20 MG CAP PO SCH (08:10)
[2017-05-26] MEDS: PERCOCET 5MG/325MG TAB PO PRN ×4 (08:11→19:37)
--- NOTE | 2017-05-26 09:01 | IPN ---
DATE: 05/25/2017 Pedrito seems to be doing better except for some abdominal pain that he now has developed. He describes the pain in the left upper quadrant and lower quadrant. His chest tube has been resolved. His shortness of breath is markedly improved. He has no nausea or vomiting. He actually was told that he was going to be placed nothing by mouth (n.p.o.) because of abdominal pain, but he stated he was hungry. He has been afebrile for the past 24 hours. Temperature is 98.1, pulse 109, respirations 18, blood pressure 130/81, oxygen saturation 94% on room air. Heart: Normal S1, S2, tachycardiac. Lungs: Few crackles at the left base and diminished, but no wheezes or rhonchi. Abdomen: Soft. Mildly tender in the left upper quadrant. No rebound tenderness. Back: No costovertebral angle (CVA) tenderness. Chest tube site is clean. Extremities: Trace ankle edema bilaterally. Neurologic: Exam normal. LABORATORY DATA: White count is 9.4, hemoglobin 12.7, hematocrit 36.6, platelets 446, 81% neutrophils, and 11% lymphocytes. Sodium 136, potassium 3.7, chloride 101, bicarb 26, BUN 10, creatinine 0.6, glucose 111, calcium 8.2, magnesium 2.1, bilirubin 0.5, AST, 34, ALT 35, alkaline phosphatase 160, CRP 7.5 down from 14.8. All cultures have remained negative. AFB fungal smear and culture are pending. Imaging study done for complaint of abdominal pain shows severe pancreatitis, extensive mesenteric inflammation and fluid throughout the upper abdomen and the left flank, stable unchanged diffuse infiltrative inflammatory changes in the mesentery involving the majority of the colon. There is concern of a loculated gas and fluid collection in the left lower lung measuring 6.5 x 5.4 cm. Will discuss the findings with Dr. Kat. IMPRESSION: 1. Severe pancreatitis of unknown etiology. HIV was negative. Hepatitis B was negative. No gallstones on abdominal ultrasound. 2. Left pleural effusion probably related to pancreatitis, but now with evidence of collection suggestive of an abscess. Will review the findings with Dr. Kat. PLAN: Continue IV meropenem. That should cover lungs and severe pancreatitis. The good news is his white count has improved and he is afebrile. There is concern about possible complications of severe pancreatitis, including pancreatic pseudocyst/abscess. We will keep monitoring fever, white count and inflammatory markers. Immunoglobulin level, IgG, IgA, IgM are all within normal. Rheumatoid factor is less than 10. ANCA 5. Complement level C3 of 138 and C4 15, all within normal. HIV negative and hepatitis B negative. Urine legionella antigen pending.
--- NOTE | 2017-05-26 10:54 | REP ---
CHEST, TWO VIEWS: HISTORY: Pleural effusion. COMPARISON: 05/25/2017. Increased density is present in the left lower lobe consistent with atelectasis or infiltrate. Increased density is present in the right lower lobe consistent with atelectasis. A left pleural effusion is present. A very small left apical pneumothorax is present. The heart is normal in size. The pulmonary vasculature is normal in appearance. The bony structure is intact. IMPRESSION: 1. Left lower lobe atelectasis or infiltrate and left pleural effusion unchanged compared to the previous study. 2. Right lower lobe atelectasis. 3. Small left apical pneumothorax. Signed by Rony Denney MD 05/26/2017 10:57 A
--- NOTE | 2017-05-26 11:27 | IPNPDOC ---
Text Note Date of Service The patient was seen on 05/26/17. NOTE Subjective: Had complaining of left upper quadrant pain radiating to the back yesterday, was placed nothing by mouth last night , and his abdominal pain has improved. Some pain at the chest tube site, which is improved. No CP/SOB. Would like to try tolerating diet again. Soft stools. Objective: Vitals: (see below) General: No acute distress, laying comfortably in bed. HEENT: Moist mucous membranes. Neck: No JVD or lymphadenopathy Cardiac: tachycardic , No murmurs Pulm: Diminished breath sounds/coarse crackles b/l L>R, . No wheezing, rhonchi. Left CT removed. Bandage in place. Mild tenderness. No bleeding. Abd: Minimal tenderness left lower quadrant. No rebound guarding or rigidity/ND + BS Ext: No edema or cyanosis Labs (see below) Images: CT abdomen pelvis 05/22/17 Impression: 1. Severe acute pancreatitis, with diffuse inflammation and fluid throughout the upper abdomen. Infiltrative changes throughout the mesenteric. No evidence of pancreatic necrosis, pseudocyst formation, or abscess. 2. Large amount of abdominal ascites, with moderate amount of pelvic ascites seen in the left flank region and left retroperitoneal cavity. 3. There is no evidence of bowel obstruction. 4. No evidence of hydronephrosis or nephrolithiasis. 5. Minimal atelectasis in the lung bases bilaterally. CT chest 05/22/17 IMPRESSION: Left chest tube in place. Improved left pleural effusion. Some loculated air and fluid in the major fissure on the left. Consolidation and collapse in the left lower lobe of the lung. There is also an extensive infiltrative pattern in the peripancreatic fat, omental fat with fluid in the pericolic gutter and perisplenic regions of the left upper quadrant of the abdomen. This same infiltrative pattern is seen in the epicardial fat anterior to the heart. Consider CT study of the abdomen and pelvis with IV and oral contrast. Abd u/s 05/23/17 Impression: Gallbladder with a small amount of layering sludge and mild wall thickening. No further abnormalities are appreciated. CT abdomen/pelvis on 05/25/17 Impression: 1. Severe pancreatitis as described. 2. The extensive mesenteric inflammation and fluid throughout the upper abdomen in left flank of the pelvis are grossly stable since the prior study. No discrete evidence of abscess. 3. Diffuse infiltrative inflammatory changes.the mesentery, involving the majority of the colon. No discrete evidence of bowel obstruction is seen. 4. Moderate atelectasis in consolidation in the left lower lung. There appears to be a loculated gas and fluid collection in the left lower lung which was not appreciative the prior study. This could represent an empyema. Clinical correlation is suggested. 5. Small anterior pneumothorax of the left lung base, not previously described. Assessment/Plan 1. Severe sepsis secondary to ?bilateral pneumonia vs severe pancreatitis. Patient's on broad-spectrum antibiotics - meropenem. ID on board - with recommendations to d/c vancomycin/azithromycin. Blood cultures negative thus far. CRP/leukocytosis improving. Tachycardic improving. Lactic acidosis improved. Restart full liquids and advance as tolerated. 2. Large left pleural effusion status post chest tube placement by Dr. Kat. s/p Chest tube. Cultures from the chest wound sent and pending. Patient did have CAT scan abdomen and pelvis 05/25, and Dr. Kat will review the left hemithorax given the above findings. 3. Severe acute pancreatitis. Lipase greater than 500 on admission. CAT scan abdomen and pelvis with significant inflammation, however no necrosis or abscess. On IV fluids. We'll continue to monitor. Drinks alcohol 3x/week. Counseled on alcohol cessation. Abd u/s (see above). TG wnl 4. Extensive abdominal and pelvic ascites/ inflammatory colon changes , retroperitoneal fluid. Discussed with Dr. Carver; will monitor the patient over the weekend and repeat CAT scan of the abdomen and pelvis on Monday.. WIll need outpt colonoscopy to r/o inflammatory bowel dz, once this episode completely resolved. Patient will also need to have close follow-up with the gastric antrum neurologist outpatient. 5. Hypokalemia- replaced 6. Symptomatic hyponatremia- hypovolemic hyponatremia. sodium 119 on presentation. Improved. Appreciate nephrology input. s/p IV fluids. 7.. Acute hypoxic respiratory failure- secondary to #1. Improved. 8. Metabolic encephalopathy- improved. DVT prophy: Enoxaparin Patient advised to use incentive spirometer and to be out of bed and ambulate. VS,Fishbone, I+O VS, Fishbone, I+O Laboratory Tests 05/26/17 05:38 Red Blood Count 4.10 L, Mean Corpuscular Volume 91.8, Mean Corpuscular Hemoglobin 31.5, Mean Corpuscular Hemoglobin Concent 34.3, Red Cell Distribution Width 12.3, Neutrophils (%) (Auto) 77.3 H, Lymphocytes (%) (Auto) 14.0 L, Monocytes (%) (Auto) 5.0, Eosinophils (%) (Auto) 2.4, Basophils (%) ( Auto) 0.6, Neutrophils # (Auto) 6.5, Lymphocytes # (Auto) 1.2 L, Monocytes # ( Auto) 0.4, Eosinophils # (Auto) 0.2, Basophils # (Auto) 0.0, Calcium Level 8.4 L , Aspartate Amino Transf (AST/SGOT) 29, Alanine Aminotransferase (ALT/SGPT) 35, Alkaline Phosphatase 157 H, Total Bilirubin 0.6, Total Protein 5.9 L, Albumin 2.0 L Vital Signs Date Time Temp Pulse Resp B/P (MAP) Pulse Ox O2 Delivery O2 Flow Rate FiO2 05/26/17 08:45 18 05/26/17 08:00 98.5 110 133/94 (107) 97 Room Air 05/23/17 16:00 2.0 I&O- Last 24 Hours up to 6 AM 05/26/17 06:00 Intake Total 460 ml Output Total 1750 ml Balance -1290 ml JOSÉ ANTONIO CALIXTO MD May 26, 2017 11:27
[2017-05-26] MEDS: ENOXAPARIN 40 MG/0.4 ML SYRINGE (J1650) SC SCH (11:58)
[2017-05-26 12:00] VITALS: BP 134/86
[2017-05-26 16:00] VITALS: BP 144/87
[2017-05-26 20:00] VITALS: BP 126/73
[2017-05-27] VITALS: BP 128/82
[2017-05-27] MEDS: MEROPENEM INJ 1 GM in D5W MINI-BAG PLUS 100 ML IV SCH ×4 (00:12→23:03)
[2017-05-27] MEDS: PERCOCET 5MG/325MG TAB PO PRN ×6 (00:13→20:39)
[2017-05-27] MEDS: LEVALBUTEROL 1.25 MG/0.5 ML CONCENTRATE NEB NEB SCH ×4 (01:05→20:22)
[2017-05-27 04:00] VITALS: BP 140/84
[2017-05-27] MEDS: SLF 3 ML SYR IV SCH ×3 (04:19→20:36)
[2017-05-27 05:16] LABS: BASO # 0.1 K/mm3 (0.0-0.2); BASO % 1.1 % (0.0-1.0); EOS # 0.2 K/mm3 (0.0-0.50); EOS % 2.5 % (0.0-3.0); LARGE UNSTAINED CELL # 0.1 K/mm3 (0.0-0.4); LARGE UNSTAINED CELL % 1.5 % (0.0-4.0); LYMPH # 1.3 K/mm3 (1.5-6.5); LYMPH % 17.4 % (24.0-44.0); MEAN CORPUSCULAR HEMOGLOBIN 31.5 pg (27.0-33.0); MEAN CORPUSCULAR HGB CONC 34.3 g/dl (32.0-36.5); MEAN CORPUSCULAR VOLUME 91.7 fl (80.0-96.0); MONO # 0.3 K/mm3 (0.0-0.8); MONO % 4.4 % (0.0-5.0); NEUTROPHILS % 73.1 % (36.0-66.0); PLATELET COUNT, AUTOMATED 500 k/mm3 (150-450); RED CELL DISTRIBUTION WIDTH 12.4 % (11.5-14.5); WHITE BLOOD COUNT 6.8 K/mm3 (4.0-10.0)
[2017-05-27 05:26] LABS: ALBUMIN 2.1 GM/DL (3.2-5.2); ALKALINE PHOSPHATASE 141 U/L (45-117); ALT/SGPT 33 U/L (12-78); ANION GAP 8 MEQ/L (8-16); AST/SGOT 25 U/L (15-37); BILIRUBIN,TOTAL 0.5 MG/DL (0.2-1.0); BLOOD UREA NITROGEN 9 MG/DL (7-18); CALCIUM LEVEL 8.5 MG/DL (8.5-10.1); CARBON DIOXIDE LEVEL 28 MEQ/L (21-32); CHLORIDE LEVEL 102 MEQ/L (98-107); CREATININE FOR GFR 0.73 MG/DL (0.70-1.30); GLOMERULAR FILTRATION RATE > 60.0 (>60); GLUCOSE, FASTING 120 MG/DL (70-105); MAGNESIUM LEVEL 2.1 MG/DL (1.8-2.4); POTASSIUM SERUM 3.7 MEQ/L (3.5-5.1); SODIUM LEVEL 138 MEQ/L (136-145); TOTAL PROTEIN 5.6 GM/DL (6.4-8.2)
[2017-05-27] MEDS: OMEPRAZOLE 20 MG CAP PO SCH (07:53)
[2017-05-27] MEDS: ENOXAPARIN 40 MG/0.4 ML SYRINGE (J1650) SC SCH (07:54)
[2017-05-27 08:00] VITALS: BP 158/99
--- NOTE | 2017-05-27 09:07 | REP ---
CHEST, TWO VIEWS: HISTORY: Pleural effusion. COMPARISON: 05/26/2017 Increased density is present in the left lower lobe consistent with atelectasis or infiltrate. Increased density is present in the right lower lobe consistent with atelectasis that is decreased compared to the previous study. A left pleural effusion is present. A small left apical pneumothorax is present. The heart is normal in size. The pulmonary vasculature is normal in appearance. The bony structure is intact. IMPRESSION: 1. Left lower lobe atelectasis or infiltrate, unchanged compared to the previous study. 2. Right lower lobe atelectasis decreased compared to the previous study. 3. Left pleural effusion and small left apical pneumothorax, unchanged compared to the previous study. Signed by Rony Denney MD 05/27/2017 09:21 A
[2017-05-27 12:00] VITALS: BP 121/69
--- NOTE | 2017-05-27 13:17 | IPNPDOC ---
Text Note Date of Service The patient was seen on 05/27/17. NOTE Subjective: Patient states left upper quadrant pain has improved. Tolerating a full liquid diet. Some pain at the chest tube site, which is improved. No CP/ SOB. Objective: Vitals: (see below) General: No acute distress, laying comfortably in bed. HEENT: Moist mucous membranes. Neck: No JVD or lymphadenopathy Cardiac: tachycardic , No murmurs Pulm: Diminished breath sounds/coarse crackles b/l L>R, . No wheezing, rhonchi. Left CT removed. Bandage in place. Mild tenderness. No bleeding. Abd: Minimal tenderness left lower quadrant. No rebound guarding or rigidity/ND + BS Ext: No edema or cyanosis Labs (see below) Images: CT abdomen pelvis 05/22/17 Impression: 1. Severe acute pancreatitis, with diffuse inflammation and fluid throughout the upper abdomen. Infiltrative changes throughout the mesenteric. No evidence of pancreatic necrosis, pseudocyst formation, or abscess. 2. Large amount of abdominal ascites, with moderate amount of pelvic ascites seen in the left flank region and left retroperitoneal cavity. 3. There is no evidence of bowel obstruction. 4. No evidence of hydronephrosis or nephrolithiasis. 5. Minimal atelectasis in the lung bases bilaterally. CT chest 05/22/17 IMPRESSION: Left chest tube in place. Improved left pleural effusion. Some loculated air and fluid in the major fissure on the left. Consolidation and collapse in the left lower lobe of the lung. There is also an extensive infiltrative pattern in the peripancreatic fat, omental fat with fluid in the pericolic gutter and perisplenic regions of the left upper quadrant of the abdomen. This same infiltrative pattern is seen in the epicardial fat anterior to the heart. Consider CT study of the abdomen and pelvis with IV and oral contrast. Abd u/s 05/23/17 Impression: Gallbladder with a small amount of layering sludge and mild wall thickening. No further abnormalities are appreciated. CT abdomen/pelvis on 05/25/17 Impression: 1. Severe pancreatitis as described. 2. The extensive mesenteric inflammation and fluid throughout the upper abdomen in left flank of the pelvis are grossly stable since the prior study. No discrete evidence of abscess. 3. Diffuse infiltrative inflammatory changes.the mesentery, involving the majority of the colon. No discrete evidence of bowel obstruction is seen. 4. Moderate atelectasis in consolidation in the left lower lung. There appears to be a loculated gas and fluid collection in the left lower lung which was not appreciative the prior study. This could represent an empyema. Clinical correlation is suggested. 5. Small anterior pneumothorax of the left lung base, not previously described. Assessment/Plan 1. Severe sepsis secondary to ?bilateral pneumonia vs severe pancreatitis. Patient's on broad-spectrum antibiotics - meropenem. ID on board - with recommendations to d/c vancomycin/azithromycin. Blood cultures negative thus far. CRP/leukocytosis improving. Tachycardic improving. Lactic acidosis improved. Restart full liquids and advance as tolerated. 2. Large left pleural effusion status post chest tube placement by Dr. Kat. s/p Chest tube. Cultures from the chest wound sent and pending. Patient did have CAT scan abdomen and pelvis 05/25, and Dr. Kat will review the left hemithorax given the above findings. 3. Severe acute pancreatitis. Lipase greater than 500 on admission. CAT scan abdomen and pelvis with significant inflammation, however no necrosis or abscess. On IV fluids. We'll continue to monitor. Drinks alcohol 3x/week. Counseled on alcohol cessation. Abd u/s (see above). TG wnl 4. Extensive abdominal and pelvic ascites/ inflammatory colon changes , retroperitoneal fluid. Discussed with Dr. Carver; will monitor the patient over the weekend and repeat CAT scan of the abdomen and pelvis on Monday.. WIll need outpt colonoscopy to r/o inflammatory bowel dz, once this episode completely resolved. Patient will also need to have close follow-up with the gastric antrum neurologist outpatient. 5. Hypokalemia- replaced 6. Symptomatic hyponatremia- hypovolemic hyponatremia. sodium 119 on presentation. Improved. Appreciate nephrology input. s/p IV fluids. 7.. Acute hypoxic respiratory failure- secondary to #1. Improved. 8. Metabolic encephalopathy- improved. DVT prophy: Enoxaparin Patient advised to use incentive spirometer and to be out of bed and ambulate. VS,Fishbone, I+O VS, Fishbone, I+O Laboratory Tests 05/27/17 05:00 Red Blood Count 3.79 L, Mean Corpuscular Volume 91.7, Mean Corpuscular Hemoglobin 31.5, Mean Corpuscular Hemoglobin Concent 34.3, Red Cell Distribution Width 12.4, Neutrophils (%) (Auto) 73.1 H, Lymphocytes (%) (Auto) 17.4 L, Monocytes (%) (Auto) 4.4, Eosinophils (%) (Auto) 2.5, Basophils (%) ( Auto) 1.1 H, Neutrophils # (Auto) 5.0, Lymphocytes # (Auto) 1.3 L, Monocytes # ( Auto) 0.3, Eosinophils # (Auto) 0.2, Basophils # (Auto) 0.1, Calcium Level 8.5, Aspartate Amino Transf (AST/SGOT) 25, Alanine Aminotransferase (ALT/SGPT) 33, Alkaline Phosphatase 141 H, Total Bilirubin 0.5, Total Protein 5.6 L, Albumin 2.1 L Vital Signs Date Time Temp Pulse Resp B/P (MAP) Pulse Ox O2 Delivery O2 Flow Rate FiO2 05/27/17 12:21 18 05/27/17 08:00 98.3 100 158/99 (118) 95 Room Air 05/23/17 16:00 2.0 I&O- Last 24 Hours up to 6 AM 05/27/17 05:59 Intake Total 920 ml Output Total 1500 ml Balance -580 ml JOSÉ ANTONIO CALIXTO MD May 27, 2017 13:17
[2017-05-27 16:00] VITALS: BP 125/78
[2017-05-27 18:14] LABS: FREE CORTISOL 24HR URINE 62 ug/24 hr (0-50); FREE CORTISOL URINE 48 ug/L (Undefined)
[2017-05-27 20:00] VITALS: BP 137/87
[2017-05-28] VITALS: BP 137/94
[2017-05-28] MEDS: PERCOCET 5MG/325MG TAB PO PRN ×5 (00:41→23:10)
[2017-05-28] MEDS: LEVALBUTEROL 1.25 MG/0.5 ML CONCENTRATE NEB NEB SCH ×4 (02:00→20:00)
[2017-05-28] MEDS: SLF 3 ML SYR IV SCH ×3 (03:02→22:48)
[2017-05-28 04:00] VITALS: BP 132/88
[2017-05-28 08:00] VITALS: BP 133/85
--- NOTE | 2017-05-28 08:09 | IPNPDOC ---
Text Note Date of Service The patient was seen on 05/28/17. NOTE Subjective: No acute changes overnight. No CP/SOB. Objective: Vitals: (see below) General: No acute distress, laying comfortably in bed. HEENT: Moist mucous membranes. Neck: No JVD or lymphadenopathy Cardiac: tachycardic , No murmurs Pulm: Diminished breath sounds/coarse crackles b/l L>R, . No wheezing, rhonchi. Left CT removed. region clean/dry/no bleeding. Abd: Minimal tenderness left lower quadrant. No rebound guarding or rigidity/ND + BS Ext: No edema or cyanosis Labs (see below) Images: CT abdomen pelvis 05/22/17 Impression: 1. Severe acute pancreatitis, with diffuse inflammation and fluid throughout the upper abdomen. Infiltrative changes throughout the mesenteric. No evidence of pancreatic necrosis, pseudocyst formation, or abscess. 2. Large amount of abdominal ascites, with moderate amount of pelvic ascites seen in the left flank region and left retroperitoneal cavity. 3. There is no evidence of bowel obstruction. 4. No evidence of hydronephrosis or nephrolithiasis. 5. Minimal atelectasis in the lung bases bilaterally. CT chest 05/22/17 IMPRESSION: Left chest tube in place. Improved left pleural effusion. Some loculated air and fluid in the major fissure on the left. Consolidation and collapse in the left lower lobe of the lung. There is also an extensive infiltrative pattern in the peripancreatic fat, omental fat with fluid in the pericolic gutter and perisplenic regions of the left upper quadrant of the abdomen. This same infiltrative pattern is seen in the epicardial fat anterior to the heart. Consider CT study of the abdomen and pelvis with IV and oral contrast. Abd u/s 05/23/17 Impression: Gallbladder with a small amount of layering sludge and mild wall thickening. No further abnormalities are appreciated. CT abdomen/pelvis on 05/25/17 Impression: 1. Severe pancreatitis as described. 2. The extensive mesenteric inflammation and fluid throughout the upper abdomen in left flank of the pelvis are grossly stable since the prior study. No discrete evidence of abscess. 3. Diffuse infiltrative inflammatory changes.the mesentery, involving the majority of the colon. No discrete evidence of bowel obstruction is seen. 4. Moderate atelectasis in consolidation in the left lower lung. There appears to be a loculated gas and fluid collection in the left lower lung which was not appreciative the prior study. This could represent an empyema. Clinical correlation is suggested. 5. Small anterior pneumothorax of the left lung base, not previously described. Assessment/Plan 1. Severe sepsis secondary to ?bilateral pneumonia vs severe pancreatitis. Patient's on broad-spectrum antibiotics - meropenem. ID on board - with recommendations to d/c vancomycin/azithromycin. Blood cultures negative thus far. CRP/leukocytosis improving. Tachycardic improving. Lactic acidosis improved. Restart full liquids and advance as tolerated. 2. Large left pleural effusion status post chest tube placement by Dr. Kat. s/p Chest tube. Cultures from the chest wound sent and pending. Patient did have CAT scan abdomen and pelvis 05/25, and Dr. Kat has reviewed CT chest with recommendations to observe, as these changes are expected. 3. Severe acute pancreatitis. Lipase greater than 500 on admission. CAT scan abdomen and pelvis with significant inflammation, however no necrosis or abscess. On IV fluids. We'll continue to monitor. Drinks alcohol 3x/week. Counseled on alcohol cessation. Abd u/s (see above). TG wnl 4. Extensive abdominal and pelvic ascites/ inflammatory colon changes , retroperitoneal fluid. Discussed with Dr. Carver; will monitor the patient over the weekend and repeat CAT scan of the abdomen and pelvis on Monday.. WIll need outpt colonoscopy to r/o inflammatory bowel dz, once this episode completely resolved. Patient will also need to have close follow-up with the gastric antrum neurologist outpatient. 5. Hypokalemia- replaced 6. Symptomatic hyponatremia- hypovolemic hyponatremia. sodium 119 on presentation. Improved. Appreciate nephrology input. s/p IV fluids. 7.. Acute hypoxic respiratory failure- secondary to #1. Improved. 8. Metabolic encephalopathy- improved. DVT prophy: Enoxaparin Pt has been OOB and ambulating. Will need outpt GI referral. VS,Fishbone, I+O VS, Fishbone, I+O Vital Signs Date Time Temp Pulse Resp B/P (MAP) Pulse Ox O2 Delivery O2 Flow Rate FiO2 05/28/17 04:00 98.6 97 18 132/88 (103) 96 Room Air 05/23/17 16:00 2.0 I&O- Last 24 Hours up to 6 AM 05/28/17 06:00 Intake Total 1640 ml Output Total 250 ml Balance 1390 ml JOSÉ ANTONIO CALIXTO MD May 28, 2017 08:09
[2017-05-28] MEDS: ENOXAPARIN 40 MG/0.4 ML SYRINGE (J1650) SC SCH (08:55)
[2017-05-28] MEDS: OMEPRAZOLE 20 MG CAP PO SCH (08:55)
[2017-05-28] MEDS: MEROPENEM INJ 1 GM in D5W MINI-BAG PLUS 100 ML IV SCH ×3 (08:55→23:11)
--- NOTE | 2017-05-28 10:36 | REP ---
CHEST, TWO VIEWS: HISTORY: Pleural effusion. COMPARISON: 05/27/2017 Increased density is present in the left lower lobe consistent with atelectasis or infiltrate. Increased density is present in the right lower lobe consistent with atelectasis. A left pleural effusion is present. A small left apical pneumothorax is present. The heart is normal in size. The pulmonary vasculature is normal in appearance. The bony structure is intact. IMPRESSION: 1. Left lower lobe atelectasis or infiltrate, unchanged compared to the previous study. 2. Right lower lobe atelectasis, unchanged compared to the previous study. 3. Left pleural effusion and small left apical pneumothorax, unchanged compared to the previous study. Signed by Rony Denney MD 05/28/2017 10:51 A
[2017-05-28 12:00] VITALS: BP 132/89
[2017-05-28 16:00] VITALS: BP 130/82
[2017-05-28 20:00] VITALS: BP 133/80
[2017-05-29] VITALS: BP 135/91
[2017-05-29] MEDS: LEVALBUTEROL 1.25 MG/0.5 ML CONCENTRATE NEB NEB SCH ×3 (01:58→13:49)
[2017-05-29 04:00] VITALS: BP 141/96
[2017-05-29] MEDS ORDERED: ISOVUE-370 76% 100ML VIAL (Q9967) As Ordered ONE (04:19)
[2017-05-29] MEDS ORDERED: GASTROGRAFIN SOLUTION 30ML PO ONE (04:30)
[2017-05-29] MEDS ORDERED: GASTROGRAFIN SOLUTION 30ML (Q9963) PO ONE (05:00)
--- NOTE | 2017-05-29 07:00 | REPUSA ---
CLINICAL HISTORY: Abdominal pain. TECHNIQUE: Multiple axial, sagittal and coronal CT images were obtained through the abdomen and pelvi s after administration of intravenous contrast material. Patient ingested oral contrast. COMMENTS: Comparison is made to the prior exam performed on 05/25/2017. The pancreas is enlarged, hypodense sac suggestive of acute pancreatitis. This is unchanged. Unchanged retroperitoneal fluid collection. Mild increase in left pleural effusion. Minimal right pleural effusion. Increased passive atelectatic airspace disease of the lower lobes. Unchanged omental nodularity and thickening. Unchanged splenomegaly. The liver is of decreased attenuation without mass or defect. There is no intra or extrahepatic biliary ductal dilatation. The spleen is normal. The gallbladder is within normal limits. The pancreas is of normal contour and attenuation characteristics. There is no evidence of adrenal mass. Both kidneys demonstrate prompt and equal nephrograms. The kidneys are normal in size, shape and conf iguration. There is no evidence of renal or ureteral mass. No renal or ureteral calculi are identifie d. There is no hydroureter or hydronephrosis. No evidence for appendicitis. No evidence for small or large bowel obstruction. Unchanged diffuse thickening of the wall of the descending and sigmoid colon. There is no evidence of intrinsic or extrinsic bladder mass. The bony structures are free of lytic or blastic lesions. IMPRESSION: Unchanged acute pancreatitis. Unchanged peripancreatic fluid collection. Unchanged left retroperitoneal fluid collection. Unchanged thickening of the wall of the descending and sigmoid colon. Increased pleural effusions. Thank you for your kind referral of this patient.
[2017-05-29] MEDS: SLF 3 ML SYR IV SCH (07:18)
[2017-05-29 08:00] VITALS: BP 133/91
--- NOTE | 2017-05-29 08:35 | REP ---
CHEST X-RAY: Two views. HISTORY: Pleural effusion. COMPARISON STUDY: May 28, 2017. FINDINGS: The left hemidiaphragm is elevated. There is some pleuroparenchymal opacity in the left base moderate in degree unchanged from most recent comparison study. A tiny left apical pneumothorax persists. No new infiltrate is seen. Right lung remains clear. IMPRESSION: Volume loss in the left lung with elevated left hemidiaphragm and left basilar pleuroparenchymal opacity. Tiny persistent left apical pneumothorax. Signed by Malik Torres MD 05/29/2017 04:21 P
[2017-05-29] MEDS: MEROPENEM INJ 1 GM in D5W MINI-BAG PLUS 100 ML IV SCH (08:44)
[2017-05-29] MEDS: OMEPRAZOLE 20 MG CAP PO SCH (08:45)
[2017-05-29] MEDS: ENOXAPARIN 40 MG/0.4 ML SYRINGE (J1650) SC SCH (08:46)
[2017-05-29 08:51] LABS: MEAN CORPUSCULAR HEMOGLOBIN 31.7 pg (27.0-33.0); MEAN CORPUSCULAR HGB CONC 35.2 g/dl (32.0-36.5); MEAN CORPUSCULAR VOLUME 90.1 fl (80.0-96.0); RED CELL DISTRIBUTION WIDTH 12.3 % (11.5-14.5)
[2017-05-29] MEDS: PERCOCET 5MG/325MG TAB PO PRN (08:56)
[2017-05-29 09:13] LABS: ALBUMIN 2.4 GM/DL (3.2-5.2); ALBUMIN/GLOBULIN RATIO 0.63 (1.00-1.93); ALKALINE PHOSPHATASE 122 U/L (45-117); ALT/SGPT 27 U/L (12-78); ANION GAP 9 MEQ/L (8-16); AST/SGOT 25 U/L (15-37); BILIRUBIN,TOTAL 0.7 MG/DL (0.2-1.0); BLOOD UREA NITROGEN 8 MG/DL (7-18); CALCIUM LEVEL 8.7 MG/DL (8.5-10.1); CARBON DIOXIDE LEVEL 25 MEQ/L (21-32); CHLORIDE LEVEL 103 MEQ/L (98-107); CREATININE FOR GFR 0.71 MG/DL (0.70-1.30); GLOMERULAR FILTRATION RATE > 60.0 (>60); GLUCOSE, FASTING 104 MG/DL (70-105); POTASSIUM SERUM 3.7 MEQ/L (3.5-5.1); SODIUM LEVEL 137 MEQ/L (136-145); TOTAL PROTEIN 6.2 GM/DL (6.4-8.2)
[2017-05-29 12:00] VITALS: BP 138/91
--- NOTE | 2017-05-29 15:22 | DS.PDOC ---
Discharge Summary General Date of Admission May 20, 2017 at 16:26 Date of Discharge 05/29/17 Attending Physician: JOSÉ ANTONIO CALIXTO MD Specialist/Consultants Involve: Gennaro Crespo MD Specialist/Consultants Involve Dr. Kat Discharge Summary PROCEDURES PERFORMED DURING STAY: Chest tube placement ADMITTING/DISCHARGE DIAGNOSES: 1. Severe sepsis 2. Severe pancreatitis 3. Large left pleural effusion status post chest tube 4. Extensive abdominal/pelvic ascites 5. Hypokalemia 6. Symptomatic hyponatremia 7. Acute on chronic hypoxic respiratory failure 8. Metabolic encephalopathy COMPLICATIONS/CHIEF COMPLAINT: Atypical Pneumonia,Consolidation Lung. HISTORY OF PRESENT ILLNESS/HOSPITAL COURSE: . This is a 26-year-old male with past medical history of alcohol abuse and pancreatitis Sep 2016 at the time was discharged home who presents with abdominal pain and shortness of breath, as well as altered mental status. Patient was initially found to have a large left pleural effusion for which Dr. Kat was consulted and the chest tubes placed. The patient also had areas of consolidation was started on broad-spectrum antibiotics. During the course of hospitalization, patient was also noted to have severe pancreatitis, with significant inflammatory changes in the abdominal region. His pancreatic [place] had improved, and the patient has started to tolerate a regular diet. Patient was also noted to have symptomatic hyponatremia on presentation which is likely hypovolemic in nature. Nephrology was consulted and this hyponatremia has resolved with IV fluids. Patient's metabolic encephalopathy, hypoxic respiratory failure, symptomatic hyponatremia, and severe pancreatitis have significantly improved since admission. F spoken to Dr. Kat who recommended the patient may return to work with no Limited activities after chest tube placement. Spoken to Dr. Carroll (GI) who has reviewed the patient's imaging and laboratory studies, and recommended discharge home with outpatient follow-up. Have also spoken to Dr. Crespo who does not recommend any further antibiotics. Patient is now hemodynamically stable and ready to be discharged home. DISCHARGE MEDICATIONS: Please see below. ALLERGIES: Please see below. PHYSICAL EXAMINATION ON DISCHARGE: VITAL SIGNS: Please see below. General: No acute distress, laying comfortably in bed. HEENT: Moist mucous membranes. Neck: No JVD or lymphadenopathy Cardiac: tachycardic , No murmurs Pulm: Diminished breath sounds/coarse crackles b/l L>R, . No wheezing, rhonchi. Left CT removed. region clean/dry/no bleeding. Abd: NT/ND + BS Ext: No edema or cyanosis LABORATORY DATA: Please see below. IMAGING: CT abdomen pelvis 05/22/17 Impression: 1. Severe acute pancreatitis, with diffuse inflammation and fluid throughout the upper abdomen. Infiltrative changes throughout the mesenteric. No evidence of pancreatic necrosis, pseudocyst formation, or abscess. 2. Large amount of abdominal ascites, with moderate amount of pelvic ascites seen in the left flank region and left retroperitoneal cavity. 3. There is no evidence of bowel obstruction. 4. No evidence of hydronephrosis or nephrolithiasis. 5. Minimal atelectasis in the lung bases bilaterally. CT chest 05/22/17 IMPRESSION: Left chest tube in place. Improved left pleural effusion. Some loculated air and fluid in the major fissure on the left. Consolidation and collapse in the left lower lobe of the lung. There is also an extensive infiltrative pattern in the peripancreatic fat, omental fat with fluid in the pericolic gutter and perisplenic regions of the left upper quadrant of the abdomen. This same infiltrative pattern is seen in the epicardial fat anterior to the heart. Consider CT study of the abdomen and pelvis with IV and oral contrast. Abd u/s 05/23/17 Impression: Gallbladder with a small amount of layering sludge and mild wall thickening. No further abnormalities are appreciated. CT abdomen/pelvis on 05/25/17 Impression: 1. Severe pancreatitis as described. 2. The extensive mesenteric inflammation and fluid throughout the upper abdomen in left flank of the pelvis are grossly stable since the prior study. No discrete evidence of abscess. 3. Diffuse infiltrative inflammatory changes.the mesentery, involving the majority of the colon. No discrete evidence of bowel obstruction is seen. 4. Moderate atelectasis in consolidation in the left lower lung. There appears to be a loculated gas and fluid collection in the left lower lung which was not appreciative the prior study. This could represent an empyema. Clinical correlation is suggested. 5. Small anterior pneumothorax of the left lung base, not previously described. PROGNOSIS: Fair ACTIVITY: As tolerated. DIET: As tolerated DISCHARGE PLAN/DISPOSITION: 01 Home, Self-Care. DISCHARGE INSTRUCTIONS: 1. Follow-up with PCP in 1-2 weeks. Follow up with Dr. Carroll 1-2 weeks as well. Return to the ED if symptoms worsen. DISCHARGE CONDITION: Stable. TIME SPENT ON DISCHARGE: Greater than 30 minutes. Vital Signs/I&Os Vital Signs Date Time Temp Pulse Resp B/P (MAP) Pulse Ox O2 Delivery O2 Flow Rate FiO2 05/29/17 12:00 98.0 100 16 138/91 (107) 94 Room Air 05/23/17 16:00 2.0 I&O- Last 24 Hours up to 6 AM 05/29/17 06:00 Intake Total 1320 ml Balance 1320 ml Laboratory Data Labs 24H Laboratory Tests 2 05/29/17 04:28: Erythrocyte Sedimentation Rate 43H, C-Reactive Protein, Quantitative 1.42H, Lipase 161 05/29/17 08:37: Anion Gap 9, Glomerular Filtration Rate > 60.0, Blood Urea Nitrogen 8, Creatinine 0.71, Sodium Level 137, Potassium Level 3.7, Chloride Level 103, Carbon Dioxide Level 25, Calcium Level 8.7, Aspartate Amino Transf (AST/SGOT) 25 , Alanine Aminotransferase (ALT/SGPT) 27, Alkaline Phosphatase 122H, Total Bilirubin 0.7, Total Protein 6.2L, Albumin 2.4L, Albumin/Globulin Ratio 0.63L CBC/BMP Laboratory Tests 05/29/17 08:37 Red Blood Count 3.76 L, Mean Corpuscular Volume 90.1, Mean Corpuscular Hemoglobin 31.7, Mean Corpuscular Hemoglobin Concent 35.2, Red Cell Distribution Width 12.3, Calcium Level 8.7, Aspartate Amino Transf (AST/SGOT) 25 , Alanine Aminotransferase (ALT/SGPT) 27, Alkaline Phosphatase 122 H, Total Bilirubin 0.7, Total Protein 6.2 L, Albumin 2.4 L Microbiology Microbiology 05/20/17 Blood Culture - Final, Complete NO GROWTH AFTER 5 DAYS 05/20/17 Blood Culture - Final, Complete NO GROWTH AFTER 5 DAYS 05/21/17 Acid Fast Stain, Received Pending 05/21/17 Mycobacterial Culture, Received Pending 05/21/17 Fungal Smear, Received Pending 05/21/17 Fungal Culture, Received Pending 05/21/17 Gram Stain - Final, Complete 05/21/17 Anaerobic Culture - Final, Complete 05/21/17 Body Fluid Culture - Final, Complete 05/20/17 Influenza Virus Type A Antigen - Final, Complete 05/20/17 Influenza Virus Type B Antigen - Final, Complete 05/20/17 Respiratory Virus Panel (PCR) (JORGE) - Final, Complete 05/20/17 Urine Culture - Final, Complete Discharge Medications No Active Prescriptions or Reported Meds Allergies Coded Allergies: No Known Allergies (Unverified , 05/20/17) JOSÉ ANTONIO CALIXTO MD May 29, 2017 15:22
== END 2017-05-29 14:36 | disposition home or self-care (01) | DRG 438 ==
LOC: M ED 11:37 → M ED INP 16:26 → M PCU 18:00
PROVIDERS: ADMIT Internal Medicine; ATTEND Internal Medicine
PROC: 0W9B30Z Drainage of Left Pleural Cavity with Drainage Device, Percutaneous Approach (ICD-10-PCS; principal; 2017-05-20)
DX: K85.90 Acute pancreatitis without necrosis or infection, unspecified (principal); J18.9 Pneumonia, unspecified organism; G93.41 Metabolic encephalopathy; A41.9 Sepsis, unspecified organism; R65.20 Severe sepsis without septic shock; J96.01 Acute respiratory failure with hypoxia; J90 Pleural effusion, not elsewhere classified; E87.1 Hypo-osmolality and hyponatremia; R18.8 Other ascites; E87.6 Hypokalemia; F17.228 Nicotine dependence, chewing tobacco, with other nicotine-induced disorders

== ENCOUNTER → 2017-06-23 | Outpatient (CLI) | payer OTHER ==
--- NOTE | 2017-06-23 12:39 | REP ---
Scrotal ultrasound, stat request: The patient complains of left testicular pain for 3-4 weeks. The testes are normal size. Right testis measures 4.8 x 2.9 x 3.1 cm. Left testis measures 4.9 x 2.5 x 3.27 meters. With Doppler assessment there is vascular flow in both testes, the Doppler resistive index of intraparenchymal arteries on the right measuring 0.53 and the left 0.48. The right and left epididymal heads are normal size and unremarkable. There are no hydroceles. The testicular parenchyma is homogeneous bilaterally. There are no testicular masses. Impression: Normal scrotal ultrasound. There is vascular flow in both testes. There are no testicular masses. The epididymis is unremarkable bilaterally. Signed by Laurent Ang MD 06/23/2017 12:30 P
== END ==
LOC: M LAB 09:16
PROVIDERS: ATTEND Family Medicine
DX: N50.812 Left testicular pain (principal)

== ENCOUNTER 2018-07-20 08:39 | Emergency (ER) | payer OTHER ==
[2018-07-20] MEDS: NS 1,000 ML IV ×3 (09:06→12:28)
[2018-07-20 09:14] LABS: BEDSIDE GLUCOSE 240 MG/DL (70-105)
[2018-07-20] MEDS: ONDANSETRON 4MG/2ML VIAL (J2405) IV (09:15)
[2018-07-20 09:17] LABS: BASO % 0.2 % (0.0-1.0); EOS % 0.2 % (0.0-3.0); HEMATOCRIT 45.4 % (42.0-52.0); HEMOGLOBIN 16.7 g/dl (13.5-17.5); IMMATURE GRANULOCYTE % 0.5 % (0-3.0); LYMPH # 0.5 10^3/uL (1.5-6.5); LYMPH % 2.8 % (24.0-44.0); MEAN CORPUSCULAR HEMOGLOBIN 32.7 pg (27.0-33.0); MEAN CORPUSCULAR HGB CONC 36.8 g/dl (32.0-36.5); MONO # 1.4 10^3/uL (0.0-0.8); NEUTROPHILS # 14.9 10^3/uL (1.8-7.7); NEUTROPHILS % 88.3 % (36.0-66.0); PLATELET COUNT, AUTOMATED 182 10^3/uL (150-450); WHITE BLOOD COUNT 16.8 10^3/uL (4.0-10.0)
[2018-07-20 09:35] LABS: INR 1.09; PARTIAL THROMBOPLASTIN TIME 26.1 SECONDS (25.4-37.6); PROTHROMBIN TIME 14.3 SECONDS (12.1-14.4)
[2018-07-20 09:40] LABS: LACTIC ACID SEPSIS PROTOCOL 1.1 MMOL/L (0.4-2.0)
[2018-07-20 09:46] LABS: ALBUMIN 4.5 GM/DL (3.2-5.2); ALBUMIN/GLOBULIN RATIO 0.98 (1.00-1.93); ALKALINE PHOSPHATASE 91 U/L (45-117); ALT/SGPT 40 U/L (12-78); AMYLASE 194 U/L (25-115); ANION GAP 19 MEQ/L (8-16); AST/SGOT 31 U/L (7-37); BILIRUBIN,DIRECT 0.6 MG/DL (0.0-0.2); BILIRUBIN,TOTAL 2.7 MG/DL (0.2-1.0); BLOOD UREA NITROGEN 22 MG/DL (7-18); CALCIUM LEVEL 9.8 MG/DL (8.5-10.1); CARBON DIOXIDE LEVEL 20 MEQ/L (21-32); CHLORIDE LEVEL 92 MEQ/L (98-107); CREATININE FOR GFR 1.29 MG/DL (0.70-1.30); GLOMERULAR FILTRATION RATE > 60.0 (>60); GLUCOSE, FASTING 230 MG/DL (70-100); LIPASE 2449 U/L (73-393); POTASSIUM SERUM 3.1 MEQ/L (3.5-5.1); SALICYLATE LEVEL 6.3 MG/DL (5.0-30.0); SODIUM LEVEL 131 MEQ/L (136-145); TOTAL PROTEIN 9.1 GM/DL (6.4-8.2)
[2018-07-20 09:53] LABS: ACETAMINOPHEN LEVEL < 2.0 UG/ML (10.0-30.0); ETHYL ALCOHOL (ETHANOL) < 0.003 % (0.000-0.010)
[2018-07-20 10:44] LABS: MAGNESIUM LEVEL 1.7 MG/DL (1.8-2.4)
[2018-07-20] MEDS: KCL 10MEQ/100ML SWI (KRUN) 10 MEQ in APPROPRIATE DILUENT 1 EA IV (10:58)
[2018-07-20] MEDS ORDERED: ISOVUE-370 76% 100ML VIAL (Q9967) As Ordered (11:07)
[2018-07-20] MEDS: POTASSIUM CHLORIDE 10 MEQ SR TABLET PO (12:34)
[2018-07-20] MEDS: MAG SULF 1GM/100ML (MAG RUN) 1 GM in APPROPRIATE DILUENT 1 EA IV (12:34)
[2018-07-20] MEDS: OXAZEPAM 15 MG CAP PO (12:39)
[2018-07-20 13:55] LABS: KETONE, URINE AUTO RFX 2+ mg/dL (NEGATIVE); LEUKOCYTE ESTERASE UR AUTO RFX NEGATIVE (NEGATIVE); MUCUS, URINE RFX SMALL (NEGATIVE); NITRITE, URINE AUTO RFX NEGATIVE (NEGATIVE); RBC, URINE AUTO RFX 3 /HPF (0-3); SQUAM EPITHELIAL CELL UR AURFX 0 /HPF (0-6); WBC, URINE AUTO RFX 1 /HPF (0-3)
[2018-07-20 14:10] LABS: SPECIFIC GRAVITY UR AUTO RFX >1.060 (1.002-1.035)
[2018-07-20 14:11] LABS: AMPHETAMINES LEVEL URINE NEGATIVE (NEGATIVE); BARBITURATES URINE NEGATIVE (NEGATIVE); BENZODIAZEPINES URINE NEGATIVE (NEGATIVE); CANNABINOIDS URINE NEGATIVE (NEGATIVE); COCAINE METABOLITE URINE NEGATIVE (NEGATIVE); METHADONE URINE NEGATIVE (NEGATIVE); OPIATES URINE NEGATIVE (NEGATIVE); PHENCYCLIDINE URINE NEGATIVE (NEGATIVE)
== END 2018-07-20 13:35 | disposition short-term general hospital (02) ==
LOC: M ED 08:39
DX: K85.20 Alcohol induced acute pancreatitis without necrosis or infection (principal); K86.2 Cyst of pancreas; K86.89 Other specified diseases of pancreas; R18.8 Other ascites; F10.10 Alcohol abuse, uncomplicated; Z88.0 Allergy status to penicillin
CPT/HCPCS: J3475

== ENCOUNTER → 2018-11-28 | Outpatient (CLI) | payer OTHER | LOC: M OUTALCOH 13:02 | PROVIDERS: ATTEND Psychiatry & Neurology Psychiatry | DX: F10.20 Alcohol dependence, uncomplicated (principal) ==

== ENCOUNTER 2018-11-29 10:00 | Outpatient (RCR) | payer OTHER | END 2018-12-13 | LOC: M OUTALCOH 10:00 | PROVIDERS: ATTEND Psychiatry & Neurology Psychiatry | DX: F10.20 Alcohol dependence, uncomplicated (principal); F17.200 Nicotine dependence, unspecified, uncomplicated ==

== ENCOUNTER → 2018-12-26 | Outpatient (REF) | payer OTHER ==
[2018-12-26 13:31] LABS: ALBUMIN 4.6 GM/DL (3.2-5.2); ALT/SGPT 23 U/L (12-78); BILIRUBIN,TOTAL 1.8 MG/DL (0.2-1.0); BLOOD UREA NITROGEN 13 MG/DL (7-18); CALCIUM LEVEL 9.2 MG/DL (8.5-10.1); CARBON DIOXIDE LEVEL 22 MEQ/L (21-32); CHLORIDE LEVEL 96 MEQ/L (98-107); CREATININE FOR GFR 0.88 MG/DL (0.70-1.30); GLOMERULAR FILTRATION RATE > 60.0 (>60); GLUCOSE, FASTING 168 MG/DL (70-100); LIPASE 401 U/L (73-393); SODIUM LEVEL 134 MEQ/L (136-145)
== END ==
LOC: M SFHCPLAZ 11:49
PROVIDERS: ATTEND Family Medicine
DX: R10.13 Epigastric pain (principal)

== ENCOUNTER 2019-01-16 14:57 | Emergency (ER) | payer OTHER ==
[~2019-01-16] VITALS: Ht 188 cm; Wt 104.5 kg
[2019-01-16] MEDS ORDERED: HYDR-3363 (15:12)
[2019-01-16] MEDS ORDERED: SERT-138 (15:12)
[2019-01-16] MEDS ORDERED: ONDANSETRON 4 MG ORAL DISINTEGRATING TAB (Q0162 PER 1MG) PO ONE ×2 (15:45→18:00)
[2019-01-16] MEDS ORDERED: hydrOXYzine 50 MG TAB PO ONE (15:45)
[2019-01-16] MEDS ORDERED: HYDR-3363 PO (17:53)
[2019-01-16] MEDS ORDERED: ZOFR4TAB16 PO (17:53)
[2019-01-16 18:11] VITALS: BP 148/98
== END 2019-01-16 18:12 | disposition home or self-care (01) ==
LOC: M ED 14:57
DX: F10.10 Alcohol abuse, uncomplicated (principal); F41.9 Anxiety disorder, unspecified; Z88.0 Allergy status to penicillin
CPT/HCPCS: 99283; Q0162

== ENCOUNTER 2019-11-12 00:47 | Inpatient (IN) | payer OTHER ==
[2019-11-12] VITALS (19 sets, daily range): BP systolic 126–157; BP diastolic 80–105
[~2019-11-12] VITALS: Ht 190.5 cm; Wt 98.1 kg
[~2019-11-12 00:47] MED LIST changes: +HYDR-3363; +HYDR-3363 PO; +SERT-138; +ZOFR4TAB16 PO
[2019-11-12] MEDS ORDERED: PHENobarbital INJ 65 MG/ML VIAL (J2560) IV STA ×3 (01:16→02:04)
[2019-11-12] MEDS ORDERED: MULTIVITAMIN -ADULT INJECTION 10 ML, THIAMINE INJection 100 MG, FOLIC ACID 1 MG in NS 1... IV ONE (01:30)
[2019-11-12 02:00] LABS: BASO # 0.2 10^3/uL (0.0-0.2); BASO % 0.8 % (0.0-1.0); HEMATOCRIT 49.8 % (42.0-52.0); HEMOGLOBIN 16.6 g/dl (13.5-17.5); LYMPH # 0.7 10^3/uL (1.5-5.0); LYMPH % 2.7 % (24.0-44.0); MEAN CORPUSCULAR HEMOGLOBIN 30.6 pg (27.0-33.0); MEAN CORPUSCULAR HGB CONC 33.3 g/dl (32.0-36.5); MEAN CORPUSCULAR VOLUME 91.7 fl (80.0-96.0); MONO # 1.3 10^3/uL (0.0-0.8); NEUTROPHILS # 24.1 10^3/uL (1.5-8.5); NEUTROPHILS % 90.9 % (36.0-66.0); PLATELET COUNT, AUTOMATED 298 10^3/uL (150-450); RED BLOOD COUNT 5.43 10^6/uL (4.30-6.10); WHITE BLOOD COUNT 26.5 10^3/uL (4.0-10.0)
[2019-11-12 02:14] LABS: ALBUMIN 5.2 GM/DL (3.2-5.2); ALT/SGPT 83 U/L (12-78); BILIRUBIN,DIRECT 0.5 MG/DL (0.0-0.2); BILIRUBIN,TOTAL 2.2 MG/DL (0.2-1.0); BLOOD UREA NITROGEN 17 MG/DL (7-18); CALCIUM LEVEL 8.6 MG/DL (8.5-10.1); CARBON DIOXIDE LEVEL 5 MEQ/L (21-32); CHLORIDE LEVEL 92 MEQ/L (98-107); CREATININE FOR GFR 1.85 MG/DL (0.70-1.30); ETHYL ALCOHOL (ETHANOL) < 0.003 % (0.000-0.010); GLOMERULAR FILTRATION RATE 45.9 (>60); GLUCOSE, FASTING 496 MG/DL (70-100); LIPASE 495 U/L (73-393); POTASSIUM SERUM 5.5 MEQ/L (3.5-5.1); SODIUM LEVEL 130 MEQ/L (136-145); TOTAL PROTEIN 9.3 GM/DL (6.4-8.2)
[2019-11-12] MEDS ORDERED: HumuLIN R (REGULAR) INSULIN (NovoLIN R) **100U/ML** PER UNIT IV ONE (02:30)
[2019-11-12] MEDS ORDERED: INSULIN IV RATE CHANGE DOCUMENTATION ML/HR XX SCH (02:30)
[2019-11-12] MEDS ORDERED: NS 1,000 ML IV ONE ×3 (02:30→02:45)
[2019-11-12] MEDS ORDERED: POTASSIUM CHLORIDE 10 MEQ SR TABLET PO ONE (02:30)
[2019-11-12] MEDS ORDERED: INSULIN HUMAN REGULAR 100 UNITS in NS 99 ML IV SCH ×2 (02:30→04:45)
[2019-11-12] MEDS ORDERED: LORazepam 2 MG/ML VIAL (J2060) As Ordered ONE ×3 (02:45→03:37)
[2019-11-12 02:53] LABS: ACETONE/KETONE > 46.00 MG/DL (<2.81)
[2019-11-12] MEDS ORDERED: SODIUM BICARBONATE 8.4% INJ 50 ML SYRINGE As Ordered ONE (02:53)
[2019-11-12] MEDS ORDERED: HYDR-3363 PO (02:56)
[2019-11-12] MEDS ORDERED: PANTOPRAZOLE 40MG INJ (PROTONIX) (C9113) IV ONE (03:00)
[2019-11-12] MEDS ORDERED: LORazepam 2 MG/ML VIAL (J2060) IV ONE ×2 (03:02→09:15)
[2019-11-12] MEDS ORDERED: LORazepam 2 MG/ML VIAL (J2060) IV STA ×5 (03:02→16:21)
[2019-11-12] MEDS ORDERED: SODIUM BICARBONATE 8.4% INJ 50 ML SYRINGE IV STA ×2 (03:02→04:18)
[2019-11-12] MEDS ORDERED: LORazepam 2 MG TAB PO PRN (03:15)
--- NOTE | 2019-11-12 03:22 | HPEPDOC ---
[facility] Medical History & Physical Date of Admission Nov 12, 2019 Date of Service: Nov 12, 2019 Attending Physician: MYLSE EPPS MD History and Physical CHIEF COMPLAINT: Abdominal pain and vomiting HISTORY OF PRESENT ILLNESS: 29-year-old male with past medical history of alcohol abuse and multiple admissions for alcohol withdrawal presents from home with abdominal pain, vomiting and shortness of breath. Patient was admitted 1 year ago for alcohol withdrawal, was in rehabilitation from November to February of this year, did not have any alcohol intake over the past month or so up until 3 days ago due to work-related stress. He reports drinking an entire bottle of vodka from Monday to Monday, no alcohol since then, alcohol level within normal limits in the ED. He is very tachypneic, tachycardic, with significant abdominal pain or nausea at this time. In the ED is found to have significant hyperglycemia, high anion gap metabolic acidosis and elevated beta hydroxybutyrate levels. Otherwise, he denies any chest pain, cough or headache; he does report 1 episode of diarrhea earlier today. 10 point review of system is negative except for above PAST MEDICAL HISTORY: 1. Alcohol abuse. 2. Anxiety. PAST SURGICAL HISTORY: 1. Chest tube placement SOCIAL HISTORY: Denies smoking. Alcoholic with multiple bouts of remission. Reports doing some drugs but hasn't done any for months, unable to name them. FAMILY HISTORY: Father with history of diabetes Mother with heart disease ALLERGIES: Please see below. HOME MEDICATIONS: Please see below. PHYSICAL EXAMINATION: VITAL SIGNS: Please see below. GENERAL: Mild distress HEENT: Normocephalic, atraumatic, dry mucous membranes NECK: Supple CARDIOVASCULAR EXAMINATION: S1, S2, tachycardic RESPIRATORY EXAMINATION: Tachypneic, Clear to auscultation, no wheezing ABDOMINAL EXAMINATION: Soft, mild tenderness to palpation, nondistended, positive bowel sounds EXTREMITIES: Range of motion intact SKIN: No rash NEUROLOGICAL EXAMINATION: Alert and oriented 3, no focal deficits PSYCHIATRIC EXAMINATION: Calm and cooperative LABORATORY DATA: See below. MICROBIOLOGY: Please see below. ASSESSMENT: 29-year-old male with past medical history of alcohol abuse and anxiety is being admitted for alcohol withdrawal and diabetic ketoacidosis. PLAN: 1. Diabetic ketoacidosis. No prior diagnosis of diabetes mellitus, strong family history on his father's side, status post 14 units of IV insulin followed by initiation of insulin drip in the ED, monitor in the ICU setting, hourly fingersticks, every 4 hours BMP, VBG pending, gave 1 amp of sodium bicarbonate. 2. Alcohol withdrawal. Last drink over 24 hours ago, alcohol levels within normal limits at this time, multiple previous admissions for alcohol withdrawal, gave 4 mg of IV Ativan in the ED, WA protocol, will monitor for adequate control of withdrawal symptoms, we'll consider Precedex drip if needed. 3. Anxiety. On hydroxyzine in the outpatient setting, currently getting benzos. DVT prophylaxis: Heparin subcutaneous GI prophylaxis: Protonix Vital Signs Vital Signs Date Time Temp Pulse Resp B/P (MAP) Pulse Ox O2 Delivery O2 Flow Rate FiO2 11/12/19 02:54 136 36 166/113 (130) 100 11/12/19 00:48 97.4 Room Air Laboratory Data Labs 24H Laboratory Tests 2 11/12/19 01:07: Immature Granulocyte % (Auto) 0.6, Neutrophils (%) (Auto) 90.9H, Lymphocytes (%) (Auto) 2.7L, Monocytes (%) (Auto) 5.0, Eosinophils (%) (Auto) 0.0, Basophils (%) (Auto) 0.8, Neutrophils # (Auto) 24.1H, Lymphocytes # (Auto) 0.7L, Monocytes # (Auto) 1.3H, Eosinophils # (Auto) 0.0, Basophils # (Auto) 0.2, Nucleated Red Blood Cells % (auto) 0.0, Anion Gap 33H, Glomerular Filtration Rate 45.9L, Calcium Level 8.6, Total Bilirubin 2.2H, Direct Bilirubin 0.5H, Aspartate Amino Transf (AST/SGOT) 106H, Alanine Aminotransferase (ALT/SGPT) 83H, Alkaline Phosphatase 159H, Total Protein 9.3H, Albumin 5.2, Albumin/Globulin Ratio 1.27, Lipase 495H, Ethyl Alcohol Level < 0.003, B-Hydroxybutyrate > 46.00H 11/12/19 02:30: CBC/BMP Laboratory Tests 11/12/19 01:07 Home Medications Scheduled PRN Hydroxyzine HCl (Hydroxyzine HCl) 25 Mg Tablet, 25 MG PO TID PRN for ANXIETY Allergies Coded Allergies: Penicillins (Verified Allergy, Mild, RASH, 11/12/19) A-FIB/CHADSVASC A-FIB History Current/History of A-Fib/PAF?: No MYLES EPPS MD Nov 12, 2019 03:22
[2019-11-12] MEDS: THIAMINE 100 MG TAB PO SCH ×2 (04:03→20:41)
[2019-11-12 04:08] LABS: VENOUS HCO3 6.5 MEQ/L (23.0-27.0); VENOUS O2 SATURATION 76.1 % (60.0-80.0); VENOUS PARTIAL PRESSURE CO2 20.8 mmHg (38.0-50.0); VENOUS PARTIAL PRESSURE O2 43.8 mmHg (30.0-50.0); VENOUS PH 7.115 UNITS (7.330-7.430); VENOUS STANDARD HCO3 9.5 MEQ/L; VENOUS TOTAL CO2 7.2 MEQ/L (24.0-28.0)
[2019-11-12] MEDS ORDERED: NS 0.45% 1,000 ML IV SCH (04:15)
[2019-11-12 04:18] LABS: BLOOD UREA NITROGEN 16 MG/DL (7-18); CALCIUM LEVEL 7.5 MG/DL (8.5-10.1); CARBON DIOXIDE LEVEL 6 MEQ/L (21-32); CHLORIDE LEVEL 105 MEQ/L (98-107); CREATININE FOR GFR 1.46 MG/DL (0.70-1.30); GLOMERULAR FILTRATION RATE > 60.0 (>60); GLUCOSE, FASTING 257 MG/DL (70-100); POTASSIUM SERUM 5.2 MEQ/L (3.5-5.1); SODIUM LEVEL 137 MEQ/L (136-145)
[2019-11-12] MEDS: INSULIN IV RATE CHANGE DOCUMENTATION ML/HR XX SCH ×11 (04:39→16:15)
[2019-11-12] MEDS: D5W/0.45% SODIUM CHLORIDE 1,000 ML IV SCH ×3 (05:26→13:51)
[2019-11-12] MEDS ORDERED: INFLUENZA QUADRIVALENT PF VACCINE 0.5ML SYRINGE (90686) IM SCH (06:00)
[2019-11-12 08:04] LABS: ALBUMIN 3.9 GM/DL (3.2-5.2); ALT/SGPT 57 U/L (12-78); BILIRUBIN,TOTAL 2.4 MG/DL (0.2-1.0); BLOOD UREA NITROGEN 12 MG/DL (7-18); CALCIUM LEVEL 8.3 MG/DL (8.5-10.1); CARBON DIOXIDE LEVEL 13 MEQ/L (21-32); CHLORIDE LEVEL 106 MEQ/L (98-107); CREATININE FOR GFR 1.19 MG/DL (0.70-1.30); GLOMERULAR FILTRATION RATE > 60.0 (>60); GLUCOSE, FASTING 187 MG/DL (70-100); MAGNESIUM LEVEL 1.6 MG/DL (1.8-2.4); POTASSIUM SERUM 4.8 MEQ/L (3.5-5.1); SODIUM LEVEL 134 MEQ/L (136-145); TOTAL PROTEIN 7.8 GM/DL (6.4-8.2)
[2019-11-12 08:27] LABS: PHOSPHORUS LEVEL 0.4 MG/DL (2.5-4.9)
[2019-11-12] MEDS: PANTOPRAZOLE 40MG INJ (PROTONIX) (C9113) IV SCH ×2 (09:01→20:41)
[2019-11-12] MEDS: MULTIVITAMINS/MINERALS THERAP 1 TAB PO SCH (09:01)
[2019-11-12] MEDS: MAG SULF 1GM/100ML (MAG RUN) 1 GM in IV 1 EA IV SCH ×4 (09:01→12:05)
[2019-11-12] MEDS: FOLIC ACID 1 MG TAB PO SCH (09:01)
[2019-11-12] MEDS: ONDANSETRON 4MG/2ML VIAL (J2405) IV PRN ×2 (10:29→21:06)
[2019-11-12 11:26] LABS: BLOOD UREA NITROGEN 9 MG/DL (7-18); CALCIUM LEVEL 8.4 MG/DL (8.5-10.1); CARBON DIOXIDE LEVEL 17 MEQ/L (21-32); CHLORIDE LEVEL 106 MEQ/L (98-107); CREATININE FOR GFR 1.06 MG/DL (0.70-1.30); GLOMERULAR FILTRATION RATE > 60.0 (>60); GLUCOSE, FASTING 192 MG/DL (70-100); PHOSPHORUS LEVEL 0.4 MG/DL (2.5-4.9); POTASSIUM SERUM 3.7 MEQ/L (3.5-5.1); SODIUM LEVEL 135 MEQ/L (136-145)
[2019-11-12] MEDS: POTASSIUM CHLORIDE 10 MEQ SR TABLET PO SCH ×4 (12:06→23:27)
[2019-11-12] MEDS ORDERED: POTASSIUM PHOSPHATE INJ 30 MMOL in D5W 500 ML IV ONE ×2 (14:00→16:15)
[2019-11-12 14:19] LABS: HEMOGLOBIN A1c 7.1 %
[2019-11-12] MEDS: HEPARIN SOD (PORCINE) 5000 UNITS/ML VIAL SQ SCH ×2 (15:24→21:06)
[2019-11-12 15:42] LABS: BLOOD UREA NITROGEN 8 MG/DL (7-18); CALCIUM LEVEL 8.4 MG/DL (8.5-10.1); CARBON DIOXIDE LEVEL 19 MEQ/L (21-32); CHLORIDE LEVEL 106 MEQ/L (98-107); CREATININE FOR GFR 0.92 MG/DL (0.70-1.30); GLOMERULAR FILTRATION RATE > 60.0 (>60); GLUCOSE, FASTING 167 MG/DL (70-100); PHOSPHORUS LEVEL 0.7 MG/DL (2.5-4.9); POTASSIUM SERUM 3.8 MEQ/L (3.5-5.1); SODIUM LEVEL 135 MEQ/L (136-145)
[2019-11-12] MEDS ORDERED: LORazepam 2 MG/ML VIAL (J2060) IM STA (16:09)
[2019-11-12] MEDS ORDERED: LEVEMIR (INSULIN DETEMIR) 1 UNITS/0.01ML SC ONE (16:15)
[2019-11-12] MEDS ORDERED: DEXTROSE 50% 50 ML SYRINGE IV PRN (17:00)
[2019-11-12] MEDS ORDERED: GLUCOSE 4 GM CHEW TABLET PO PRN (17:00)
[2019-11-12] MEDS ORDERED: GLUCAGON FOR INJ 1 MG VIAL (J1610) SC PRN (17:00)
[2019-11-12] MEDS: HumaLOG INSULIN (NovoLOG) PER UNIT SC SCH ×2 (17:30→20:41)
[2019-11-12 19:58] LABS: BLOOD UREA NITROGEN 7 MG/DL (7-18); CALCIUM LEVEL 8.5 MG/DL (8.5-10.1); CARBON DIOXIDE LEVEL 19 MEQ/L (21-32); CHLORIDE LEVEL 104 MEQ/L (98-107); CREATININE FOR GFR 0.85 MG/DL (0.70-1.30); GLOMERULAR FILTRATION RATE > 60.0 (>60); GLUCOSE, FASTING 164 MG/DL (70-100); POTASSIUM SERUM 3.8 MEQ/L (3.5-5.1); SODIUM LEVEL 134 MEQ/L (136-145)
[2019-11-12] MEDS: K-PHOS NEUTRAL 250MG TABLET (SOD.PHOSPHATE/POT.PHOSPHATE) PO SCH (21:06)
[2019-11-13] VITALS (14 sets, daily range): BP systolic 104–165; BP diastolic 67–95
[2019-11-13 05:06] LABS: HEMATOCRIT 38.8 % (42.0-52.0); MEAN CORPUSCULAR HEMOGLOBIN 30.5 pg (27.0-33.0); MEAN CORPUSCULAR HGB CONC 35.6 g/dl (32.0-36.5); MEAN CORPUSCULAR VOLUME 85.8 fl (80.0-96.0); PLATELET COUNT, AUTOMATED 111 10^3/uL (150-450); RED BLOOD COUNT 4.52 10^6/uL (4.30-6.10); WHITE BLOOD COUNT 9.6 10^3/uL (4.0-10.0)
[2019-11-13 05:10] LABS: HEMOGLOBIN 13.8 g/dl (13.5-17.5)
[2019-11-13 05:27] LABS: BLOOD UREA NITROGEN 3 MG/DL (7-18); CALCIUM LEVEL 8.6 MG/DL (8.5-10.1); CARBON DIOXIDE LEVEL 18 MEQ/L (21-32); CHLORIDE LEVEL 104 MEQ/L (98-107); CREATININE FOR GFR 0.79 MG/DL (0.70-1.30); GLOMERULAR FILTRATION RATE > 60.0 (>60); GLUCOSE, FASTING 188 MG/DL (70-100); MAGNESIUM LEVEL 2.3 MG/DL (1.8-2.4); PHOSPHORUS LEVEL 1.1 MG/DL (2.5-4.9); POTASSIUM SERUM 4.4 MEQ/L (3.5-5.1); SODIUM LEVEL 134 MEQ/L (136-145)
[2019-11-13] MEDS: HEPARIN SOD (PORCINE) 5000 UNITS/ML VIAL SQ SCH ×3 (05:45→20:15)
--- NOTE | 2019-11-13 07:31 | ECGEPIP ---
[facility] - ED Test Date: 2019-11-12 Pat Name: FLYNN DUBOSE Department: Room: [place] [address] Gender: Male Chaperone: MING : 1990 Requested By: JAMES RANKIN Order Number: [id number] Reading MD: Daquan Sam Measurements Intervals Eugene Rate: 136 P: 66 WA: 137 QRS: 13 QRSD: 122 T: 79 QT: 316 QTc: 476 Interpretive Statements SINUS TACHYCARDIA Prolonged QTc interval Left ventricular hypertrophy and St-T wave change Baseline artifact Similar to tracing done 07-20-18 Electronically Signed on 11-13-2019 7:31:37 EST by Daquan Sam
[2019-11-13] MEDS ORDERED: CALCIUM ACETATE 667 MG GELCAP PO SCH (08:00)
[2019-11-13] MEDS: PANTOPRAZOLE 40MG INJ (PROTONIX) (C9113) IV SCH ×2 (08:28→20:15)
[2019-11-13] MEDS: K-PHOS NEUTRAL 250MG TABLET (SOD.PHOSPHATE/POT.PHOSPHATE) PO SCH ×3 (08:28→20:14)
[2019-11-13] MEDS: THIAMINE 100 MG TAB PO SCH ×2 (08:28→20:14)
[2019-11-13] MEDS: MULTIVITAMINS/MINERALS THERAP 1 TAB PO SCH (08:29)
[2019-11-13] MEDS: FOLIC ACID 1 MG TAB PO SCH (08:29)
[2019-11-13] MEDS: HumaLOG INSULIN (NovoLOG) PER UNIT SC SCH ×4 (08:30→20:03)
[2019-11-13] MEDS ORDERED: LORazepam 2 MG/ML VIAL (J2060) IV STA (08:58)
[2019-11-13] MEDS ORDERED: SODIUM PHOSPHATE INJ 30 MMOL in D5W 500 ML IV ONE ×2 (10:00→22:00)
[2019-11-13] MEDS ORDERED: LORazepam 2 MG TAB PO ONE (12:00)
[2019-11-13] MEDS ORDERED: metFORMIN (GLUCOPHAGE) 500 MG TAB PO SCH (18:00)
--- NOTE | 2019-11-13 20:37 | IPNPDOC ---
Date Seen The patient was seen on 11/13/19. Progress Note HISTORY OF PRESENT ILLNESS: 29-year-old male with past medical history of alcohol abuse and multiple admissions for alcohol withdrawal presents from home with abdominal pain, vomiting and shortness of breath. Patient was admitted 1 year ago for alcohol withdrawal, was in rehabilitation from November to February of this year, did not have any alcohol intake over the past month or so up until 3 days ago due to work-related stress. He reports drinking an entire bottle of vodka from Monday to Monday, no alcohol since then, alcohol level within normal limits in the ED. He is very tachypneic, tachycardic, with significant abdominal pain or nausea at this time. In the ED is found to have significant hyperglycemia, high anion gap metabolic acidosis and elevated beta hydroxybutyrate levels. Otherwise, he denies any chest pain, cough or headache; he does report 1 episode of diarrhea earlier today. 11/13/19 Patient with significant improvement in metabolic acidosis, gap is closed, now off of insulin drip, received a dose of Levemir, followed by sliding scale coverage with meals and at bedtime. Patient continues to show signs of alcohol withdrawal, requiring multiple doses of Ativan yesterday and today. He reports significant improvement in dyspnea, abdominal pain, sweating, chills and nausea. He is tolerating his diet without any difficulty, no other complaints at this time. He denies any chest pain, diarrhea, constipation or headache. 10 point review of system is negative except for above PHYSICAL EXAMINATION: VITAL SIGNS: Please see below. GENERAL: No distress HEENT: Normocephalic, atraumatic, moist mucous membranes NECK: Supple CARDIOVASCULAR EXAMINATION: S1, S2, tachycardic RESPIRATORY EXAMINATION: Clear to auscultation, no wheezing ABDOMINAL EXAMINATION: Soft, no tenderness to palpation, nondistended, positive bowel sounds EXTREMITIES: Range of motion intact SKIN: No rash NEUROLOGICAL EXAMINATION: Alert and oriented 3, no focal deficits PSYCHIATRIC EXAMINATION: Calm and cooperative LABORATORY DATA: See below. MICROBIOLOGY: Please see below. ASSESSMENT: 29-year-old male with past medical history of alcohol abuse and anxiety is admitted for alcohol withdrawal and diabetic ketoacidosis. PLAN: 1. Diabetic ketoacidosis. No prior diagnosis of diabetes mellitus, hemoglobin A1c of 7.1, insulin drip discontinued, continue sliding scale coverage with meals and at bedtime, started metformin 500 mg at bedtime. 2. Alcohol withdrawal. Last drink over 48 hours ago, has required multiple doses of IV and oral Ativan for withdrawal symptoms, continue CIWA protocol with multivitamins, folic acid and thiamine. 3. Electrolyte abnormalities. Deficiency in potassium, magnesium and phosphorus (profound), supplemented IV as needed and tolerated. DVT prophylaxis: Heparin subcutaneous GI prophylaxis: Protonix VS, I&O, 24H, Fishbone Vital Signs/I&O Vital Signs Date Time Temp Pulse Resp B/P (MAP) Pulse Ox O2 Delivery O2 Flow Rate FiO2 11/13/19 14:00 98.6 115 16 119/80 (93) 97 Room Air I&O- Last 24 Hours up to 6 AM 11/13/19 06:00 Intake Total 5130 ml Output Total 2600 ml Balance 2530 ml Laboratory Data 24H LABS Laboratory Tests 2 11/12/19 20:38: Bedside Glucose (Misc Panel) 207H 11/13/19 04:36: Nucleated Red Blood Cells % (auto) 0.0, Anion Gap 12, Glomerular Filtration Rate > 60.0, Calcium Level 8.6, Phosphorus Level 1.1L, Magnesium Level 2.3 11/13/19 07:25: Bedside Glucose (Misc Panel) 205H 11/13/19 11:41: Bedside Glucose (Misc Panel) 254H 11/13/19 16:41: Bedside Glucose (Misc Panel) 223H 11/13/19 19:38: Bedside Glucose (Misc Panel) 209H CBC/BMP Laboratory Tests 11/13/19 04:36 Microbiology Microbiology 11/12/19 Blood Culture - Preliminary, Resulted No growth after 24 hours . All specim... MYLES EPPS MD Nov 13, 2019 20:37
[2019-11-13] MEDS ORDERED: RAMELTEON 8 MG TAB (ROZEREM) PO SCH (21:00)
[2019-11-13] MEDS: LORazepam 1 MG TAB PO SCH (21:21)
[2019-11-14] MEDS: LORazepam 1 MG TAB PO SCH (03:29)
[2019-11-14 05:30] VITALS: BP_SYST 118; BP_SYST 123; BP_DIAS 80; BP_DIAS 87
[2019-11-14] MEDS: HEPARIN SOD (PORCINE) 5000 UNITS/ML VIAL SQ SCH (05:32)
[2019-11-14 06:00] VITALS: BP 123/87
[2019-11-14 07:05] LABS: ALBUMIN 3.7 GM/DL (3.2-5.2); ALT/SGPT 46 U/L (12-78); BILIRUBIN,TOTAL 1.8 MG/DL (0.2-1.0); BLOOD UREA NITROGEN 7 MG/DL (7-18); CALCIUM LEVEL 8.8 MG/DL (8.5-10.1); CARBON DIOXIDE LEVEL 24 MEQ/L (21-32); CHLORIDE LEVEL 102 MEQ/L (98-107); CREATININE FOR GFR 0.83 MG/DL (0.70-1.30); GLOMERULAR FILTRATION RATE > 60.0 (>60); GLUCOSE, FASTING 208 MG/DL (70-100); MAGNESIUM LEVEL 1.9 MG/DL (1.8-2.4); PHOSPHORUS LEVEL 3.1 MG/DL (2.5-4.9); SODIUM LEVEL 136 MEQ/L (136-145); TOTAL PROTEIN 7.6 GM/DL (6.4-8.2)
[2019-11-14] MEDS: MULTIVITAMINS/MINERALS THERAP 1 TAB PO SCH (08:37)
[2019-11-14] MEDS: K-PHOS NEUTRAL 250MG TABLET (SOD.PHOSPHATE/POT.PHOSPHATE) PO SCH (08:37)
[2019-11-14] MEDS: THIAMINE 100 MG TAB PO SCH (08:37)
[2019-11-14] MEDS: FOLIC ACID 1 MG TAB PO SCH (08:37)
[2019-11-14] MEDS: PANTOPRAZOLE 40MG INJ (PROTONIX) (C9113) IV SCH (08:38)
[2019-11-14] MEDS: HumaLOG INSULIN (NovoLOG) PER UNIT SC SCH (08:39)
[2019-11-14] MEDS ORDERED: POTASSIUM CHLORIDE 10 MEQ SR TABLET PO SCH (09:00)
[2019-11-14 09:22] LABS: HEMOGLOBIN 13.7 g/dl (13.5-17.5); MEAN CORPUSCULAR HEMOGLOBIN 30.5 pg (27.0-33.0); MEAN CORPUSCULAR HGB CONC 34.3 g/dl (32.0-36.5); MEAN CORPUSCULAR VOLUME 89.1 fl (80.0-96.0); PLATELET COUNT, AUTOMATED 101 10^3/uL (150-450); RED BLOOD COUNT 4.49 10^6/uL (4.30-6.10)
[2019-11-14] MEDS: KCL 10MEQ/100ML SWI (KRUN) 10 MEQ in IV 1 EA IV SCH ×2 (09:52→10:56)
[2019-11-14] MEDS ORDERED: LIDOCAINE VISCOUS 2% SOLN 15ML UDC PO ONE (10:45)
[2019-11-14] MEDS ORDERED: GLUC500T PO (10:48)
--- NOTE | 2019-11-14 10:53 | DS.PDOC ---
Discharge Summary General Date of Admission Nov 12, 2019 at 02:58 Date of Discharge 11/14/19 Attending Physician: MYLES EPPS MD Discharge Summary PROCEDURES PERFORMED DURING STAY: None. ADMITTING DIAGNOSES: 1. Alcohol Withdrawal, DKA. DISCHARGE DIAGNOSES: 1. Alcohol withdrawal, DKA. COMPLICATIONS/CHIEF COMPLAINT: Alcohol Withdrawl,Anxiety,Dka. HISTORY OF PRESENT ILLNESS: 29-year-old male with past medical history of anxiety and alcohol abuse, presents with alcohol withdrawal and DKA with new onset diabetes mellitus. Patient was admitted to the ICU and treated with insu andres drip and aggressive IV hydration along with IV Ativan for alcohol withdrawal. He improved daily with significant improvement in lab abnormalities in symptoms within 48 hours, was downgraded to MedSurg yesterday. He reports doing well overnight, without any complaints at this time, tolerating diet and labs showing complete resolution of metabolic acidosis. Patient with hypokalemia today, likely from improvement in metabolic acidosis, will supplement oral and IV prior to discharge. All other electrolytes have been supplemented appropriately. Patient is advised to follow-up with cardiology given persistent tachycardia and prior EKG showing possible LVH; most of the tachycardia is likely from DKA/alcohol withdrawal, but the fact that it has persisted despite adequate treatment means that patient may have underlying tachycardia and possible tachycardia-induced cardiomyopathy. He is advised to follow with a desk editor and his PCP within 1-2 weeks. Patient will be discharged on metformin, hemoglobin A1c was 7.1. HOSPITAL COURSE: As above. DISCHARGE MEDICATIONS: Please see below. ALLERGIES: Please see below. PHYSICAL EXAMINATION: VITAL SIGNS: Please see below. GENERAL: No distress HEENT: Normocephalic, atraumatic, moist mucous membranes NECK: Supple CARDIOVASCULAR EXAMINATION: S1, S2, tachycardic RESPIRATORY EXAMINATION: Clear to auscultation, no wheezing ABDOMINAL EXAMINATION: Soft, nontender, nondistended, positive bowel sounds EXTREMITIES: Range of motion intact SKIN: No rash NEUROLOGICAL EXAMINATION: Alert and oriented 3, no focal deficits PSYCHIATRIC EXAMINATION: Calm and cooperative LABORATORY DATA: Please see below. PROGNOSIS: Fair ACTIVITY: As tolerated. DIET: Consistent carbs DISCHARGE PLAN: Follow with desk editor and PCP 1-2 weeks DISPOSITION: Home. DISCHARGE INSTRUCTIONS: 1. As above. DISCHARGE CONDITION: Stable. TIME SPENT ON DISCHARGE: Greater than 33 minutes. Vital Signs/I&Os Vital Signs Date Time Temp Pulse Resp B/P (MAP) Pulse Ox O2 Delivery O2 Flow Rate FiO2 11/14/19 06:00 97.8 104 18 123/87 (99) 96 Room Air I&O- Last 24 Hours up to 6 AM 11/14/19 06:00 Intake Total 2340 ml Output Total 100 ml Balance 2240 ml Laboratory Data Labs 24H Laboratory Tests 2 11/13/19 11:41: Bedside Glucose (Misc Panel) 254H 11/13/19 16:41: Bedside Glucose (Misc Panel) 223H 11/13/19 19:38: Bedside Glucose (Misc Panel) 209H 11/14/19 05:43: Nucleated Red Blood Cells % (auto) 0.0 11/14/19 05:48: Anion Gap 10, Glomerular Filtration Rate > 60.0, Calcium Level 8.8, Phosphorus Level 3.1#, Magnesium Level 1.9, Total Bilirubin 1.8H, Aspartate Amino Transf (AST/SGOT) 49H, Alanine Aminotransferase (ALT/SGPT) 46, Alkaline Phosphatase 103, Total Protein 7.6, Albumin 3.7, Albumin/Globulin Ratio 0.95L CBC/BMP Laboratory Tests 11/14/19 05:43 11/14/19 05:48 FSBS Laboratory Tests Test 11/13/19 11:41 11/13/19 16:41 11/13/19 19:38 Range/Units Bedside Glucose (Misc Panel) 254 223 209 70-105 MG/DL Microbiology Microbiology 11/12/19 Blood Culture - Preliminary, Resulted No Growth after 48 hours. All Specime... Discharge Medications Scheduled Metformin HCl (Glucophage) 500 Mg Tablet, 500 MG PO DAILY@18 Scheduled PRN Hydroxyzine HCl (Hydroxyzine HCl) 25 Mg Tablet, 25 MG PO TID PRN for ANXIETY, (Reported) Allergies Coded Allergies: Penicillins (Verified Allergy, Mild, RASH, 11/12/19) MYLES EPPS MD Nov 14, 2019 10:53
== END 2019-11-14 12:57 | disposition home or self-care (01) | DRG 638 ==
LOC: M ED 00:47 → M ED INP 02:58 → M ICU 04:22 → M MSPAV 11-13 11:47
PROVIDERS: ADMIT Internal Medicine; ATTEND Internal Medicine
DX: E11.10 Type 2 diabetes mellitus with ketoacidosis without coma (principal); F10.230 Alcohol dependence with withdrawal, uncomplicated; F41.9 Anxiety disorder, unspecified; E11.65 Type 2 diabetes mellitus with hyperglycemia; Z79.899 Other long term (current) drug therapy; Z88.0 Allergy status to penicillin; E87.8 Other disorders of electrolyte and fluid balance, not elsewhere classified

== ENCOUNTER → 2020-06-16 | Outpatient (REF) | payer OTHER ==
[~2020-06-16] MED LIST changes: +GLUC500T PO; -MECL-68 PO; +MECL1TAB31 PO
[2020-07-29 10:02] LABS: HEMOGLOBIN A1c 11.3 %; MALB URINE SIEMENS 15.3 MG/L
[2020-08-05 11:40] LABS: INSULIN LEVEL See Separate Report
[2020-08-05 11:41] LABS: ISLET CELL ANTIBODIES SEE SEPARATE REPORT (NEG <1:1)
[2020-09-01 10:02] LABS: GLUCOSE, FASTING SEE SEPARATE REPORT
== END ==
LOC: M SFHCPLAZ 16:17
PROVIDERS: ATTEND Internal Medicine
DX: E11.9 Type 2 diabetes mellitus without complications (principal)

== ENCOUNTER → 2020-08-10 | Outpatient (CLI) | payer OTHER ==
[2020-08-10 09:53] LABS: HEMATOCRIT 41.6 % (42.0-52.0); HEMOGLOBIN 14.4 g/dl (13.5-17.5); MEAN CORPUSCULAR HEMOGLOBIN 31.2 pg (27.0-33.0); MEAN CORPUSCULAR HGB CONC 34.6 g/dl (32.0-36.5); MEAN CORPUSCULAR VOLUME 90.2 fl (80.0-96.0); PLATELET COUNT, AUTOMATED 160 10^3/uL (150-450); RED BLOOD COUNT 4.61 10^6/uL (4.30-6.10); WHITE BLOOD COUNT 7.3 10^3/uL (4.0-10.0)
[2020-08-10 10:12] LABS: ALBUMIN 3.7 GM/DL (3.2-5.2); ALT/SGPT 178 U/L (12-78); BLOOD UREA NITROGEN 9 MG/DL (7-18); CALCIUM LEVEL 8.8 MG/DL (8.5-10.1); CARBON DIOXIDE LEVEL 28 MEQ/L (21-32); CHLORIDE LEVEL 108 MEQ/L (98-107); CREATININE FOR GFR 0.84 MG/DL (0.70-1.30); GLOMERULAR FILTRATION RATE > 60.0 (>60); GLUCOSE, FASTING 125 MG/DL (70-100); POTASSIUM SERUM 3.8 MEQ/L (3.5-5.1); SODIUM LEVEL 140 MEQ/L (136-145); TOTAL PROTEIN 6.6 GM/DL (6.4-8.2)
== END ==
LOC: M WUC 08:39
PROVIDERS: ATTEND Family Medicine
DX: E80.6 Other disorders of bilirubin metabolism (principal)

== ENCOUNTER → 2020-08-19 | Outpatient (CLI) | payer OTHER ==
[2020-08-19 17:25] LABS: ALBUMIN 4.3 GM/DL (3.2-5.2); ALT/SGPT 90 U/L (12-78); BILIRUBIN,DIRECT 0.4 MG/DL (0.0-0.2); BILIRUBIN,TOTAL 1.5 MG/DL (0.2-1.0); IRON (FE) 69 UG/DL (65-175); PERCENT SATURATION 18.4 % (19.7-50.0); TOTAL IRON BINDING CAPACITY 374 UG/DL (250-450); TOTAL PROTEIN 7.6 GM/DL (6.4-8.2)
[2020-08-19 17:41] LABS: HEPATITIS B SURFACE ANTIGEN NEGATIVE (NEGATIVE)
[2020-08-19 18:09] LABS: HEPATITIS C VIRUS ABY INDEX 0.1 INDEX (<0.8)
[2020-08-21 23:07] LABS: ANA (HEP2) Negative (.); ANTI-SMOOTH MUSCLE ANTIBODY 2 Units (0-19); CERULOPLASMIN 23.1 mg/dL (16.0-31.0); TRANSFERRIN 295 mg/dL (177-329)
== END ==
LOC: M WUC 14:41
PROVIDERS: ATTEND Family Medicine
DX: E80.6 Other disorders of bilirubin metabolism (principal)

== ENCOUNTER → 2020-09-28 | Outpatient (CLI) | payer OTHER ==
--- NOTE | 2020-09-28 11:15 | REP ---
INDICATION: RUQ HYPERBILIRUBINEMIA COMPARISON: 05/23/2017 TECHNIQUE: Real time valdez scale ultrasound examination using curved array transducer. FINDINGS: Liver is mildly hyperechoic suggesting fatty infiltration without focal hepatic lesion. The pancreas is incompletely evaluated although small pancreatic parenchymal calcifications suggesting chronic pancreatitis cannot be excluded. The gallbladder is normal and without gallstones, wall thickening, or pericholecystic fluid. No biliary ductal dilatation is appreciated and the common bile duct measures 2.4 mm diameter. Right kidney is normal in reniform shape without hydronephrosis and measures 11.4 x 5.1 x 4.8 cm. No ascites in the visualized right upper quadrant. IMPRESSION: 1. Hepatosteatosis suggested without focal hepatic lesion. 2. Cannot exclude pancreatic calcifications suggesting prior chronic pancreatitis. <Electronically signed by Johnnie Vicente > 09/28/20 [id number]
== END ==
LOC: M WHC 08:33
PROVIDERS: ATTEND Family Medicine
DX: E80.6 Other disorders of bilirubin metabolism (principal)

== ENCOUNTER → 2020-10-23 | Outpatient (REF) | payer OTHER | LOC: M SFHCPLAZ 09:31 | PROVIDERS: ATTEND Family Medicine | DX: F10.10 Alcohol abuse, uncomplicated (principal); E11.9 Type 2 diabetes mellitus without complications; E80.6 Other disorders of bilirubin metabolism; Z53.9 Procedure and treatment not carried out, unspecified reason ==

== ENCOUNTER → 2020-11-24 | Outpatient (CLI) | payer OTHER ==
[2020-11-24 16:18] LABS: HEMATOCRIT 46.6 % (42.0-52.0); HEMOGLOBIN 16.1 g/dl (13.5-17.5); MEAN CORPUSCULAR HEMOGLOBIN 28.3 pg (27.0-33.0); MEAN CORPUSCULAR HGB CONC 34.5 g/dl (32.0-36.5); MEAN CORPUSCULAR VOLUME 81.9 fl (80.0-96.0); PLATELET COUNT, AUTOMATED 253 10^3/uL (150-450); RED BLOOD COUNT 5.69 10^6/uL (4.30-6.10)
[2020-11-24 17:15] LABS: ALBUMIN 4.6 GM/DL (3.2-5.2); ALT/SGPT 34 U/L (12-78); BILIRUBIN,TOTAL 1.5 MG/DL (0.2-1.0); BLOOD UREA NITROGEN 22 MG/DL (7-18); CALCIUM LEVEL 9.4 MG/DL (8.5-10.1); CARBON DIOXIDE LEVEL 34 MEQ/L (21-32); CHLORIDE LEVEL 88 MEQ/L (98-107); CREATININE FOR GFR 1.19 MG/DL (0.70-1.30); GLOMERULAR FILTRATION RATE > 60.0 (>60); GLUCOSE, FASTING 604 MG/DL (70-100); POTASSIUM SERUM 4.1 MEQ/L (3.5-5.1); SODIUM LEVEL 127 MEQ/L (136-145); TOTAL PROTEIN 7.7 GM/DL (6.4-8.2)
[2020-11-24 17:20] LABS: HEMOGLOBIN A1c 11.9 %
== END ==
LOC: M WUC 10:52
PROVIDERS: ATTEND Family Medicine
DX: E80.6 Other disorders of bilirubin metabolism (principal); E11.9 Type 2 diabetes mellitus without complications

== ENCOUNTER 2021-01-07 08:07 | Emergency (ER) | payer OTHER ==
[~2021-01-07] VITALS: Ht 188 cm; Wt 95.6 kg
[2021-01-07] MEDS ORDERED: VIVI380I (08:16)
[2021-01-07] MEDS ORDERED: INSU100I9 (08:16)
[2021-01-07] MEDS ORDERED: LANTINJ4 (08:16)
--- OUTSIDE RECORDS SUMMARY | 2021-01-07 09:14 | CCD ---
Author Author [facility] Organization [facility] Address Unknown Phone Unavailable Care Team Providers Care Media Relations Manager Name Role Phone Vitor Vides Unavailable PROBLEMS Type Condition ICD9-CM Code [id number] Code Onset Dates Condition S tatus SNOMED Code Notes Problem Alcohol abuse F10.10 Active 19834370 Problem senior care (current) use of insulin Z79.4 Activ e 092435957 Problem Type 2 diabetes mellitus without complications E11 .9 Active 819406974 Problem Anxiety F41.9 Active 03990402 Problem Current moderate episode of major depressive disorder without prior episode F32.1 Active 41557158 Problem Type 2 diabetes mellitus wit hout complication, without long-term current use of insulin E11.9 Active 977582773 Problem Hyperbilirubinemia E80.6 Active 42389623 ALLERGIES Allergen (clinical drug ingredient) Drug/Non Drug Allergy do cumented on EMR Reaction Allergy Type Onset Date Status Environmental Unknown Non Drug Allergy Activ e empagliflozin Jardiance([facility] Code:[address]-66) Unknown Drug Aller gy Active ENCOUNTERS from 1989 to 2020-11-25 Encounter Location Date Provider Diagnosis [address] [address] Nov, 021 Vitor Vides Type 2 diabetes mellitus without complications E11.9 and Type 2 diabetes mellitus without complication, without long-term current use of insulin E11.9 IMMUNIZATIONS Vaccine Route Administration Date Status Influenza (18 yrs & older) Flublok IM Intramuscular Aug 17, 2020 Administered Pneumococcal Adult 0.5mL (Pneumovax 23) IM Intramuscular Aug 17, 2020 Administered SOCIAL HISTORY Tobacco Use: Social History Observation Description Date Details (start date - stop date) Uses tobacco in other forms Sex Assigned At : Social History Observation Description Sex Assigned At Unknown Education: Question Answer Notes Level of Education: Not Finished College Audit Question Answer Notes Total Score: 1 Interpretation: Alcohol Education Language: Question Answer Notes Languages spoken: Cook Islander Tenriism: Question Answer Notes Tenriism No religion beliefs that would impact health care. Sexual Hx: Question Answer Notes Had sex in the last 12 months (vaginal, oral, or anal)? Yes Prevention Strategies discussed: Other with Women only Use protection? Yes How often? 0% Drug and Alcohol Question Answer Notes Total Score: 0 Interpretation: No problems reported Alcohol Screening: Question Answer Notes Did you have a drink containing alcohol in the past year? Ye s Points 8 Interpretation Positive How often did you have six or more drinks on one occas ion in the past year? Monthly (2 points) How many drinks did you have on a typica l day when you were drinking in the past year? 5 or 6 (2 points) How often did you have a drink containing alcohol in t he past year? Four or more times a week (4 points) Tobacco Use: Question Answer Notes Are you a: Uses tobacco in other forms chew tobacco REASON FOR REFERRAL No Information VITAL SIGNS No information MEDICATIONS Medication SIG (Take, Route, Frequency, Duration) Notes Start Da te End Date Status Insulin Lispro (1 Unit Dial) 100 UNIT/ML 7 units just prior to meals Subcutaneous with meals for 30 days Nov, Active Acamprosate Calcium 333 MG 2 tablets Orally Three times a day fo r 30 day(s) Feb, Active Disulfiram 250 MG 1 tablet Orally Once a day t o be strated after a week of 500 mg tablets for 30 day(s) Feb, Not-Sumit ing BD Pen Needle Mini U/F 31G X 5 MM as directed as direc keny four times a day for 30 days Jul, Active HydrOXYzine HCl 25 MG 1 tablet as needed Orally every 8 hrs for 30 days Nov, Active BusPIRone HCl 10 MG 1 tablet Orally Three times a day for 30 day s May, Not-Taking PROzac 20 MG 1 capsule Orally Once a day for 30 days Not-Taking Glucose Monitor - as directed as directed (E11.9) Daily for 30 D ays Nov, Active Lantus 100 UNIT/ML 37 units SC daily for 30 days Active Clonidine HCl 0.1 MG 1 tablet Orally Twice a day as needed at least 8 hours apart for 30 days May, Not-Taking Naltrexone HCl 50 MG 1 tablet Orally Once a day for 30 day(s) Feb, Not-Taking Metformin HCl 1000 MG 1 tablet with a meal Orally bid for 30 day (s) Nov, Active Comfort Lancets - as directed topically (E11.9 ) four times a day and as needed for hypo or hyperglycemia MDD: 7 for 30 Days Nov, Active Test Strips - as directed as directed four times a day and as needed for hypo or hyperglycemia MDD: 7 for 30 days Nov, Active Vivitrol 380 MG 4 ml Intramuscular every 4 weeks for 28 days Apr, Active PROCEDURES No Information RESULTS No Results REASON FOR VISIT No Information MEDICAL (GENERAL) HISTORY Type Description Date Medical History Pancreatitis Medical History depression Medical History Anxiety Medical History History of alcohol use disorder Medical History DM Type 3c, pancreatogenic DM 2 chronic pancreatitis Surgical History No Surgical history information Hospitalization History Pancreatitis 05/29 Goals Section No Information Health Concerns No Information MEDICAL EQUIPMENT No Information MENTAL STATUS No Information FUNCTIONAL STATUS No Information ASSESSMENTS Encounter Date Diagnosis Assessment Notes Treatment Notes Treatm ent Clinical Notes Nov, Type 2 diabetes mellitus without complications ( ICD-10 - E11.9) Nov, Type 2 diabetes mellitus wit hout complication, without long-term current use of insulin (ICD-10 - E11.9) PLAN OF TREATMENT Medication Medication Name Sig Start Date Stop Date BD Pen Needle Mini U/F 31G X 5 MM as directed as direc keny four times a day for 30 days Jul, Comfort Lancets - as directed topically (E11.9 ) four times a day and as needed for hypo or hyperglycemia MDD: 7 for 30 Days Nov, Test Strips - as directed as directed four times a day and as needed for hypo or hyperglycemia MDD: 7 for 30 days Nov, Lantus 100 UNIT/ML 37 units SC daily for 30 days Insulin Lispro (1 Unit Dial) 100 UNIT/ML 7 units just prior to meals Subcutaneous with meals for 30 days Nov, Vivitrol 380 MG 4 ml Intramuscular every 4 weeks for 28 days Apr, Next Appt Details Provider Name:Angelito Gallegos, 2020-12-18 09:00:00 AM, [address] [place], [phone], Insurance Providers Payer Name Payer Address Payer Phone Insured Name Patient Relati onship to Insured Coverage Start Date Coverage End Date [facility] [address] [facility] [phone] FLYNN DUBOSE self
--- OUTSIDE RECORDS SUMMARY | 2021-01-07 09:14 | CCD ---
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 Activ e 679744981 Problem Type 2 diabetes mellitus without complications E11 .9 Active 277848418 Problem Anxiety F41.9 Active 20664333 Problem Current moderate episode of major depressive disorder without prior episode F32.1 Active 94850275 Problem Type 2 diabetes mellitus wit hout complication, without long-term current use of insulin E11.9 Active 821510833 Problem Hyperbilirubinemia E80.6 Active 30548198 ALLERGIES Allergen (clinical drug ingredient) Drug/Non Drug Allergy do cumented on EMR Reaction Allergy Type Onset Date Status Environmental Unknown Non Drug Allergy Activ e empagliflozin Jardiance([facility] Code:[address]-79) Unknown Drug Aller gy Active ENCOUNTERS from 1989 to 2020-10-24 Encounter Location Date Provider Diagnosis [facility] [place] Resident [address] [place] [address] Oct, Angelito Gallegos Type 2 diabetes mellitus wit hout complications E11.9 ; Alcohol abuse F10.10 ; Hyperbilirubinemia E80.6 and 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 Sexual [...] REASON FOR REFERRAL No Information VITAL SIGNS Weight 225 lbs Oct, Height 71 in Oct, BMI 31.38 kg/m2 Oct, Heart Rate 92 /min Oct, Respiratory Rate 17 /min Oct, Temperature 96.7 degrees Fahrenheit Oct, Oximetry 98 Oct, Blood pressure systolic 112 mm Hg Oct, Blood pressure diastolic 72 mm Hg Oct, MEDICATIONS Medication SIG (Take, Route, Frequency, Duration) Notes Start Da te End Date Status PROzac 20 MG 1 capsule Orally Once a day for 30 days Not-Taking Lantus 100 UNIT/ML 37 units SC daily for 30 days Active HydrOXYzine HCl 25 MG 1 tablet as needed Orally every 8 hrs for 30 days Nov, Active Disulfiram 250 MG 1 tablet Orally Once a day t o be strated after a week of 500 mg tablets for 30 day(s) Feb, Not-Sumit ing BD Pen Needle Mini U/F 31G X 5 MM as directed as direc keny once a day for 30 days Jul, Active Clonidine HCl 0.1 MG 1 tablet Orally Twice a day as needed at least 8 hours apart for 30 days May, Not-Taking Metformin HCl 1000 MG 1 tablet with a meal Orally bid for 30 day (s) Nov, Active Naltrexone HCl 50 MG 1 tablet Orally Once a day for 30 day(s) Feb, Not-Taking Comfort Lancets - as directed topically (E11.9) bid for 30 Days Nov, Active Glucose Monitor - as directed as directed (E11.9) Daily for 30 D ays Nov, Active Test Strips - as directed as directed (E11.9) bid for 90 day(s) Nov, Active BusPIRone HCl 10 MG 1 tablet Orally Three times a day for 30 day s May, Not-Taking Acamprosate Calcium 333 MG 2 tablets Orally Three times a day fo r 30 day(s) Feb, Active Vivitrol 380 MG 4 ml Intramuscular every 4 weeks for 28 days Apr, Active PROCEDURES No Information RESULTS No Results REASON FOR VISIT 2 month f/u and Vivitrol injection MEDICAL (GENERAL) HISTORY Type Description Date Medical [...] Notes Treatment Notes Treatm ent Clinical Notes Oct, Type 2 diabetes mellitus without complications ( ICD-10 - E11.9) Patient had C-peptide, 65 antibodies, islet cell antibody test ordered in June however, due to the down time there was an error in the lab in these labs were not performed. I would like to get these less performed to rule out any other types of diabetes to make sure that the patient does truly have type 2 diabetes. If the patient doesn't fact have type 2 diabetes and his A1c is still elevated, we will add SGLT2 inhibitor as the patient has a history of pancreatitis. Oct, Alcohol abuse (ICD-10 - F10.10) Patient did not get his Vivitrol in the mail prior to the visit. I resent refills for him. Once patient gets this, he'll set up a nurse's visit to get this medication administered. Patient says medication is working very well and has not had anything to drink in over 2 months and started medication. Oct, Hyperbilirubinemia (ICD-10 - E80.6) patient's bilirubin level was still slightly elevated at the last check, it has been coming down though. We will recheck this today. I suspect this is due to alcohol use as the patient had a full workup for liver issues which did not show any other abnormalities. Oct, [facility] (current) use of insulin (ICD-10 - Z79 .4) PLAN OF TREATMENT Medication Medication Name Sig Start Date Stop Date Lantus 100 UNIT/ML 37 units SC daily for 30 days BD Pen Needle Mini U/F 31G X 5 MM as directed as direc keny once a day for 30 days 30 Jul, 2020 Vivitrol 380 MG 4 ml Intramuscular every 4 weeks for 28 days 16 Apr, 2020 Treatment Notes Assessment Notes Clinical Notes Type 2 diabetes mellitus without complications Patient had C-peptide, 65 antibodies, islet cell antibody test ordered in June however, due to the down time there was an error in the lab in these labs were not performed. I would like to get these less performed to rule out any other types of diabetes to make sure that the patient does truly have type 2 diabetes. If the patient doesn't fact have type 2 diabetes and his A1c is still elevated, we will add SGLT2 inhibitor as the patient has a history of pancreatitis. Alcohol abuse Patient did not get his Lilliam trol in the mail prior to the visit. I resent refills for him. Once patient gets this, he'll set up a nurse's visit to get this medication administered. Patient says medication is working very well and has not had anything to drink in over 2 months and started medication. Hyperbilirubinemia patient's bilirubin level wa s still slightly elevated at the last check, it has been coming down though. We will recheck this today. I suspect this is due to alcohol use as the patient had a full workup for liver issues which did not show any other abnormalities. Treatment Notes Test Name Order Date HEMOGLOBIN A1c 2020-10-24 Comprehensive Metabolic Profile (CMP) 2020-10-24 CBC - Complete Blood Count 2020-10-24 Islet Cell Antibodies 2020-10-24 KEVIN-65 AUTOANTIBODY 2020-10-24 C-PEPTIDE 2020-10-24 Future Test Test Name Order Date Naltrexone 380mg 20201023 Next Appt Details 3 months for diabetic follow up Reason:m onthly nursing visits for vivtrol Provider Name:Angelito Gallegos, 2020-10-30 09:00:00 AM, [address] [place] [address], [phone], Provider Name:Angelito Gallegos, 2020-11-20 09:00:00 AM, [address] [place] [address], [phone], Provider Name:Angelito Gallegos, 2020-12-18 09:00:00 AM, [address] [place] [address], [phone], Follow Up:3 months for diabetic follow upmonthly nursing visits for vivtrol Insurance Providers Payer Name Payer Address Payer Phone Insured Name Patient Relati onship to Insured Coverage Start Date Coverage End Date [facility] [address] [facility] [phone] FLYNN DUBOSE self
--- OUTSIDE RECORDS SUMMARY | 2021-01-07 09:14 | CCD ---
Author Author [facility] Organization [facility] Address Unknown Phone Unavailable Care Team Providers Care Insulation Foreman Name Role Phone Angelito Gallegos Unavailable PROBLEMS Type Condition ICD9-CM Code [id number] Code Onset Dates Condition S tatus W/U Status Risk SNOMED Code Notes Problem Alcohol abuse F10.10 Active confirmed 092918 05 Problem Anxiety F41.9 Active confirmed 79616413 Problem Type 2 diabetes mellitus without complications E11 .9 Active confirmed 100808776 Problem Type 2 diabetes mellitus with hyperglycemia E11.65 Active confirmed 75067529 Problem Current moderate episode of major depressive disorder without prior episode F32.1 Active confirmed 44542933 Problem Type 2 diabetes mellitus wit hout complication, without long-term current use of insulin E11.9 Active confirmed 988931123 Problem Hyperbilirubinemia E80.6 Active confirmed 1 5742410 Problem retirement (current) use of insulin Z79.4 Activ e confirmed 671406043 ALLERGIES Allergen (clinical drug ingredient) Drug/Non Drug Allergy do cumented on EMR Reaction Allergy Type Onset Date Status Environmental Unknown Non Drug Allergy Activ e empagliflozin Jardiance([facility] Code:[address]-70) Unknown Drug Aller gy Active ENCOUNTERS from 1989 to 2020-12-22 Encounter Location Date Provider Diagnosis [facility] [place] [address] 08 Dec, 2020 Angelito Gallegos Type 2 diabetes mellitus with hyperglyce minnie E11.65 IMMUNIZATIONS Vaccine Route Administration Date Status Influenza [...] Education Language: Question Answer Notes Languages spoken: Chinese Sikhism: Question Answer Notes Sikhism No hinduism beliefs that would impact health care. Sexual [...] Start Da te End Date Status Insulin Aspart 100 UNIT/ML 7 units Subcutaneous with m eals MDD: 21 units for 30 days Dec, Active Glucose Monitor - as directed as directed (E11.9) Daily for 30 D ays Nov, Active BusPIRone HCl 10 MG 1 tablet Orally Three times a day for 30 day s May, Not-Taking Test Strips - as directed as directed four times a day and as needed for hypo or hyperglycemia MDD: 7 for 30 days Nov, Active PROzac 20 MG 1 capsule Orally Once a day for 30 days Not-Taking Acamprosate Calcium 333 MG 2 tablets Orally Three times a day fo r 30 day(s) Feb, Active Comfort Lancets - as directed topically (E11.9 ) four times a day and as needed for hypo or hyperglycemia MDD: 7 for 30 Days Nov, Active HydrOXYzine HCl 25 MG 1 tablet as needed Orally every 8 hrs for 30 days Nov, Active Triamcinolone Acetonide 0.1 % 1 application Externally Twice a day for 14 days Dec, Active Vivitrol 380 MG 4 ml Intramuscular every 4 weeks for 28 days Apr, Active Metformin HCl 1000 MG 1 tablet with a meal Orally bid for 30 day (s) Nov, Active Lantus 100 UNIT/ML 37 units SC daily for 30 days Active Disulfiram 250 MG 1 tablet Orally Once a day t o be strated after a week of 500 mg tablets for 30 day(s) Feb, Not-Sumit ing Clonidine HCl 0.1 MG 1 tablet Orally Twice a day as needed at least 8 hours apart for 30 days May, Not-Taking Naltrexone HCl 50 MG 1 tablet Orally Once a day for 30 day(s) Feb, Not-Taking BD Pen Needle Mini U/F 31G X 5 MM as directed as direc keny four times a day for 30 days Jul, Active PROCEDURES No Information RESULTS No Results REASON FOR VISIT insulin? MEDICAL (GENERAL) HISTORY Type Description Date Medical [...] Notes Treatment Notes Treatm ent Clinical Notes Dec, Type 2 diabetes mellitus with hyperglycemia (ICD -10 - E11.65) PLAN OF TREATMENT Medication Medication Name Sig Start Date Stop Date Insulin Aspart 100 UNIT/ML 7 units Subcutaneous with m eals MDD: 21 units for 30 days Dec, Triamcinolone Acetonide 0.1 % 1 application Externally Twice a day for 14 days Dec, Insurance Providers Payer Name Payer Address Payer Phone Insured Name Patient Relati onship to Insured Coverage Start Date Coverage End Date [facility] [address] [address] [facility] [phone] FLYNN DUBOSE self
--- OUTSIDE RECORDS SUMMARY | 2021-01-07 09:14 | CCD ---
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 Activ e 342241936 Problem Type 2 diabetes mellitus without complications E11 .9 Active 921079169 Problem Anxiety F41.9 Active 42678207 Problem Current moderate episode of major depressive disorder without prior episode F32.1 Active 67460023 Problem Type 2 diabetes mellitus wit hout complication, without long-term current use of insulin E11.9 Active 035815418 Problem Hyperbilirubinemia E80.6 Active 12149431 ALLERGIES Allergen (clinical drug ingredient) Drug/Non Drug Allergy do cumented on EMR Reaction Allergy Type Onset Date Status Environmental Unknown Non Drug Allergy Activ e empagliflozin Jardiance([facility] Code:[address]-00) Unknown Drug Aller gy Active ENCOUNTERS from 1989 to 2020-10-31 Encounter Location Date Provider Diagnosis [address] [address] Oct, Angelito El Alcohol abuse F10.10 IMMUNIZATIONS Vaccine Route Administration Date Status Influenza [...] Education Language: Question Answer Notes Languages spoken: Senegalese Jew: Question Answer Notes Jew No restorationist beliefs that would impact health care. Sexual [...] weeks for 28 days Apr, Active PROCEDURES from 1989 to 2020-10-31 Procedure Date Ordered Result Body Site Naltrexone 380mg 2020-10-30 N/A RESULTS No Results REASON FOR VISIT vivitrol inj MEDICAL (GENERAL) HISTORY Type Description Date Medical [...] Treatment Notes Treatm ent Clinical Notes Oct, Alcohol abuse (ICD-10 - F10.10) PLAN OF TREATMENT Medication Medication Name Sig Start Date Stop Date Lantus 100 UNIT/ML 37 units SC daily for 30 days BD Pen Needle Mini U/F 31G X 5 MM as directed as direc keny once a day for 30 days Jul, Vivitrol 380 MG 4 ml Intramuscular every 4 weeks for 28 days Apr, Next Appt Details Provider Name:Angelito Gallegos, 2020-11-20 09:00:00 AM, [address] [place] [address], [phone], Provider Name:Angelito Gallegos, 2020-12-18 09:00:00 AM, [address] [place] [address], [phone], Insurance Providers Payer Name Payer Address Payer Phone Insured Name Patient Relati onship to Insured Coverage Start Date Coverage End Date [facility] [address] [facility] [phone] [phone] FLYNN DUBOSE self
--- OUTSIDE RECORDS SUMMARY | 2021-01-07 09:14 | CCD ---
Author Author [facility] Organization [facility] Address Unknown Phone Unavailable Care Team Providers Care Automatic Stacker Name Role Phone BOLIVAR, Siddhartha JANSEN Unavailable Unavailable LETTIERE, Siddhartha JANSEN Unavailable Unavailable LETTIERE, Siddhartha JANSEN Unavailable Unavailable LETTIERE, Siddhartha JANSEN Unavailable Unavailable LETTIERE, Siddhartha JANSEN Unavailable Unavailable LETTIERE, Siddhartha JANSEN Unavailable Unavailable LETTIERE, Siddhartha JANSEN Unavailable Unavailable LETTIERE, Siddhartha JANSEN Unavailable Unavailable LETTIERE, Siddhartha JANSEN Unavailable Unavailable LETTIERE, Siddhartha JANSEN Unavailable Unavailable LETTIERE, Siddhartha JANSEN Unavailable Unavailable LETTIERE, Siddhartha JANSEN Unavailable Unavailable LETTIERE, Siddhartha JANSEN Unavailable Unavailable LETTIERE, Siddhartha JANSEN Unavailable Unavailable LETTIERE, Siddhartha JANSEN Unavailable Unavailable LETTIERE, Siddhartha JANSEN Unavailable Unavailable LETTIERE, Siddhartha NGO PA Unavailable Unavailable LETTIERE, Siddhartha JANSEN Unavailable Unavailable LETTIERE, Siddhartha JANSEN Unavailable Unavailable LETTIERE, Siddhartha JANSEN Unavailable Unavailable LETTIERE, Siddhartha JANSEN Unavailable Unavailable LETTIERE, Siddhartha JANSEN Unavailable Unavailable LETTIERE, Siddhartha JANSEN Unavailable Unavailable LETTIERE, Siddhartha JANSEN Unavailable Unavailable LETTIERE, Siddhartha JANSEN Unavailable Unavailable LETTIERE, Siddhartha JANSEN Unavailable Unavailable LETTIERE, Siddhartha JANSEN Unavailable Unavailable LETTIERE, Siddhartha JANSEN Unavailable Unavailable LETTIERE, Siddhartha [employer] PA Unavailable Unavailable Re-disclosure Warning The records that you are about to access may contain information from federally-assisted alcohol or drug abuse programs. If such information is present, then the following federally mandated warning applies: This information has been disclosed to you from records protected by federal confidentiality rules (42 CFR part 2). The federal rules prohibit you from making any further disclosure of this information unless further disclosure is expressly permitted by the written consent of the person to whom it pertains or as otherwise permitted by 42 CFR part 2. A general authorization for the release of medical or other information is NOT sufficient for this purpose. The Federal rules restrict any use of the information to criminally investigate or prosecute any alcohol or drug abuse patient.The records that you are about to access may contain highly sensitive health information, the redisclosure of which is protected by Article 27-F of the [facility] Public Health law. If you continue you may have access to information: Regarding HIV / AIDS; Provided by facilities licensed or operated by the [facility] Office of Mental Health; or Provided by the [facility] Office for People With Developmental Disabilities. If such information is present, then the following [facility] mandated warning applies: This information has been disclosed to you from confidential records which are protected by state law. State law prohibits you from making any further disclosure of this information without the specific written consent of the person to whom it pertains, or as otherwise permitted by law. Any unauthorized further disclosure in violation of state law may result in a fine or care home sentence or both. A general authorization for the release of medical or other information is NOT sufficient authorization for further disc losure. Allergies and Adverse Reactions Type Description Substance Reaction Status Data Source(s ) Drug allergy Jardiance empagliflozin Unknown Active eCW1 ([facility]) Environmental Environmental Environmental Unknown Active eCW1 ([facility]) Family History Family Member Name Family Member Gender Family Member Status Date o f Status Description Data Source(s) Unknown Unknown Problem MEDENT ([facility]) father Unknown Male Problem MEDENT ([facility]) Unknown Female Problem MEDENT ([facility]) Encounters Encounter Providers Location Date Indications Data Source(s ) [place] [address] [address] 12/21/2020 12:00:00 AM EST eCW1 ([facility]) [place] [address] [address] 11/24/2020 12:00:00 AM EST eCW1 ([facility]) [place] [address] [address] 10/30/2020 12:00:00 AM EST eCW1 ([facility]) [place] [address] [address] 10/23/2020 12:00:00 AM EST eCW1 ([facility]) [place] [address] [address] 09/24/2020 12:00:00 AM EST eCW1 ([facility]) [place]patient [address] [facility] [place] [address] 08/17/2020 12:00:00 AM EDT eCW1 ([facility]) [place] [address] [address] 08/12/2020 12:00:00 AM EDT eCW1 ([facility]) Unknown [address] [facility] [place] [address] 08/04/2020 12:00:00 AM EDT eCW1 ([facility]) Outpatient 008 06/17/2020 01:37:00 PM EDT - 06/17/2020 01:37:00 PM EDT Lab test [facility] Lab test [place] [address] [address] 06/01/2020 12:00:00 AM EDT eCW1 ([facility]) Unknown [address] [facility] [place] [address] 05/04/2020 12:00:00 AM EDT eCW1 ([facility]) Outpatient [address] [facility] [place] [address] 04/28/2020 12:00:00 AM EDT eCW1 ([facility]) [facility] Resident [address] [place] [phone] 04/01/2020 12:00:00 AM EDT eCW1 ([facility]ly [facility]) [facility] [place] [address] [facility] [address] 02/20/2020 12:00:00 AM EDT eCW1 ([facility]ly [facility]) TeleMedicine Phone E/M by Phys 11-[address] [place] [phone] 02/13/2020 12:00:00 AM EDT eCW1 ([facility]) Outpatient Attender: JENI alvarado 12/27/2019 08:35:00 AM EST MEDENT ([facility] Resident [address] [place] [phone] 12/06/2019 12:00:00 AM EST eCW1 ([facility]) Unknown [address] [place] [phone] 11/20/2019 12:00:00 AM EST eCW1 ([facility]ly [facility]) [facility] Resident [address] [place] [phone] 11/20/2019 12:00:00 AM EST eCW1 ([facility]ly [facility]) [facility] Resident [address] [place] [phone] 11/19/2019 12:00:00 AM EST eCW1 ([facility]ly [facility]) [facility] [place] [address] [place] [phone] 11/15/2019 12:00:00 AM EST eCW1 ([facility]) Immunizations Vaccine Date Status Description Data Source(s) pneumococcal polysaccharide PPV23 08/17/2020 07:49:00 AM EDT comple keny eCW1 ([facility]) pneumococcal polysaccharide PPV23 08/17/2020 07:49:00 AM EDT comple keny eCW1 ([facility]) pneumococcal polysaccharide PPV23 08/17/2020 07:49:00 AM EDT comple keny eCW1 ([facility]) pneumococcal polysaccharide PPV23 08/17/2020 07:49:00 AM EDT comple keny eCW1 ([facility]) pneumococcal polysaccharide PPV23 08/17/2020 07:49:00 AM EDT comple keny eCW1 ([facility]) pneumococcal polysaccharide PPV23 08/17/2020 07:49:00 AM EDT comple keny eCW1 ([facility]) pneumococcal polysaccharide PPV23 08/17/2020 07:49:00 AM EDT comple keny eCW1 ([facility]) influenza, recombinant, quadrIvalent,injectable, prese rvative free 08/17/2020 07:48:00 AM EDT completed eCW1 ([facility]) influenza, recombinant, quadrIvalent,injectable, prese rvative free 08/17/2020 07:48:00 AM EDT completed eCW1 ([facility]) influenza, recombinant, quadrIvalent,injectable, prese rvative free 08/17/2020 07:48:00 AM EDT completed eCW1 ([facility]) influenza, recombinant, quadrIvalent,injectable, prese rvative free 08/17/2020 07:48:00 AM EDT completed eCW1 ([facility]) influenza, recombinant, quadrIvalent,injectable, prese rvative free 08/17/2020 07:48:00 AM EDT completed eCW1 ([facility]) influenza, recombinant, quadrIvalent,injectable, prese rvative free 08/17/2020 07:48:00 AM EDT completed eCW1 ([facility]) influenza, recombinant, quadrIvalent,injectable, prese rvative free 08/17/2020 07:48:00 AM EDT completed eCW1 ([facility]) Medications Medication Brand Name Start Date Product Form Dose Route Admi nistrative Instructions Pharmacy Instructions Status Indications Reaction Description Data Source(s) Insulin Aspart 100 UNIT/ML UNK 12/18/2020 12:00:00 AM EST active Insulin Aspart 100 UNIT/ML eCW1 ([facility]) Triamcinolone Acetonide 1 MG/ML Topical Cream Triamcin olone Acetonide 0.1 % Triamcinolone Acetonide 0.1 % 12/18/2020 12:00:00 AM EST 1.0 {appli cation} active Triamcinolone Acetonide 0 .1 % eCW1 ([facility]) 3 ML Insulin Lispro 100 UNT/ML Pen Injec tor Insulin Lispro (1 Unit Dial) 100 UNIT/ML Insulin Lispro (1 Unit Dial) 100 UNIT/ML 11/25/2020 12:00:00 AM EST active Insulin Lispro (1 Un it Dial) 100 UNIT/ML eCW1 ([facility]) BD Pen Needle Mini U/F 31G X 5 MM BD Pen Needle Mini U/F 31G X 5 MM 08/12/2020 12:00:00 AM EDT active BD Pen N eedle Mini U/F 31G X 5 MM eCW1 ([facility]) BD Pen Needle Mini U/F 31G X 5 MM BD Pen Needle Mini U/F 31G X 5 MM 08/12/2020 12:00:00 AM EDT active BD Pen N eedle Mini U/F 31G X 5 MM eCW1 ([facility]) BD Pen Needle Mini U/F 31G X 5 MM BD Pen Needle Mini U/F 31G X 5 MM 08/12/2020 12:00:00 AM EDT active BD Pen N eedle Mini U/F 31G X 5 MM eCW1 ([facility]) BD Pen Needle Mini U/F 31G X 5 MM BD Pen Needle Mini U/F 31G X 5 MM 08/12/2020 12:00:00 AM EDT active BD Pen N eedle Mini U/F 31G X 5 MM eCW1 ([facility]) BD Pen Needle Mini U/F 31G X 5 MM BD Pen Needle Mini U/F 31G X 5 MM 08/12/2020 12:00:00 AM EDT active BD Pen N eedle Mini U/F 31G X 5 MM eCW1 ([facility]) BD Pen Needle Mini U/F 31G X 5 MM BD Pen Needle Mini U/F 31G X 5 MM 08/12/2020 12:00:00 AM EDT active BD Pen N eedle Mini U/F 31G X 5 MM eCW1 ([facility]) BD Pen Needle Mini U/F 31G X 5 MM BD Pen Needle Mini U/F 31G X 5 MM 08/12/2020 12:00:00 AM EDT active BD Pen N eedle Mini U/F 31G X 5 MM eCW1 ([facility]) BD Pen Needle Mini U/F 31G X 5 MM BD Pen Needle Mini U/F 31G X 5 MM 08/12/2020 12:00:00 AM EDT active BD Pen N eedle Mini U/F 31G X 5 MM eCW1 ([facility]) BD Pen Needle Mini U/F 31G X 5 MM BD Pen Needle Mini U/F 31G X 5 MM 08/12/2020 12:00:00 AM EDT active BD Pen N eedle Mini U/F 31G X 5 MM eCW1 ([facility]) 50 mg 07/14/2020 12:00:00 AM EDT tablet 90 TAKE ONE TABLET BY MOUTH THREE TIMES A DAY NEEDED TAKE ONE TABLET BY MOUTH THREE TIMES A DAY NEEDED S OLD: 07/24/2020 [facility] 50 mg 07/14/2020 12:00:00 AM EDT tablet 90 TAKE ONE TABLET BY MOUTH THREE TIMES A DAY NEEDED TAKE ONE TABLET BY MOUTH THREE TIMES A DAY NEEDED S OLD: 10/14/2020 [facility] 50 mg 07/14/2020 12:00:00 AM EDT tablet 90 TAKE ONE TABLET BY MOUTH THREE TIMES A DAY NEEDED TAKE ONE TABLET BY MOUTH THREE TIMES A DAY NEEDED S OLD: 09/01/2020 [facility] 100 unit/mL (3 mL) 06/24/2020 12:00:00 AM EDT insulin pen 15 INJECT 15 UNITS UNDER THE SKIN ONCE DAILY INJECT 15 UNITS UNDER THE SKIN ONCE DAILY SOLD: 09/01/2020 [facility] 31 gauge x 1/4" 06/24/2020 12:00:00 AM EDT needle 30 USE 1 NEEDLE UNDER THE SKIN ONCE DAILY USE 1 NEEDLE UNDER THE SKIN ONCE DAILY SOLD: 10/14/2020 [facility] Metformin hydrochloride 1000 MG Oral Tablet 1,000 mg METFORM IN HCL 06/24/2020 12:00:00 AM EDT tablet 60 TAKE ONE TABLET BY MOUTH TWICE A DAY TAKE ONE TABLET BY MOUTH TWICE A DAY SOLD: 10/14/2020 [facility] 31 gauge x 1/4" 06/24/2020 12:00:00 AM EDT needle 30 USE 1 NEEDLE UNDER THE SKIN ONCE DAILY USE 1 NEEDLE UNDER THE SKIN ONCE DAILY SOLD: 08/07/2020 [facility] Metformin hydrochloride 1000 MG Oral Tablet 1,000 mg METFORM IN HCL 06/24/2020 12:00:00 AM EDT tablet 60 TAKE ONE TABLET BY MOUTH TWICE A DAY TAKE ONE TABLET BY MOUTH TWICE A DAY SOLD: 06/26/2020 [facility] 100 unit/mL (3 mL) 06/24/2020 12:00:00 AM EDT insulin pen 15 INJECT 15 UNITS UNDER THE SKIN ONCE DAILY INJECT 15 UNITS UNDER THE SKIN ONCE DAILY SOLD: 06/26/2020 [facility] Metformin hydrochloride 1000 MG Oral Tablet 1,000 mg METFORM IN HCL 06/24/2020 12:00:00 AM EDT tablet 60 TAKE ONE TABLET BY MOUTH TWICE A DAY TAKE ONE TABLET BY MOUTH TWICE A DAY SOLD: 09/01/2020 [facility] 31 gauge x 1/4" 06/24/2020 12:00:00 AM EDT needle 30 USE 1 NEEDLE UNDER THE SKIN ONCE DAILY USE 1 NEEDLE UNDER THE SKIN ONCE DAILY SOLD: 09/06/2020 [facility] 31 gauge x 1/4" 06/24/2020 12:00:00 AM EDT needle 30 USE 1 NEEDLE UNDER THE SKIN ONCE DAILY USE 1 NEEDLE UNDER THE SKIN ONCE DAILY SOLD: 06/26/2020 [facility] Naltrexone 112 MG/ML Injectable Suspension [Vivitrol] Vivitrol 380 MG Vivitrol 380 MG 04/28/2020 12:00:00 AM EDT 4.0 {ml} active Vivitrol 380 MG eCW1 ([facility]) Naltrexone 112 MG/ML Injectable Suspension [Vivitrol] Vivitrol 380 MG Vivitrol 380 MG 04/28/2020 12:00:00 AM EDT 4.0 {ml} active Vivitrol 380 MG eCW1 ([facility]) Naltrexone 112 MG/ML Injectable Suspension [Vivitrol] Vivitrol 380 MG Vivitrol 380 MG 04/28/2020 12:00:00 AM EDT 4.0 {ml} active Vivitrol 380 MG eCW1 ([facility]) Naltrexone 112 MG/ML Injectable Suspension [Vivitrol] Vivitrol 380 MG Vivitrol 380 MG 04/28/2020 12:00:00 AM EDT 4.0 {ml} suspended Vivitrol 380 MG eCW1 ([facility]) Naltrexone 112 MG/ML Injectable Suspension [Vivitrol] Vivitrol 380 MG Vivitrol 380 MG 04/28/2020 12:00:00 AM EDT 4.0 {ml} active Vivitrol 380 MG eCW1 ([facility]) Naltrexone 112 MG/ML Injectable Suspension [Vivitrol] Vivitrol 380 MG Vivitrol 380 MG 04/28/2020 12:00:00 AM EDT 4.0 {ml} active Vivitrol 380 MG eCW1 ([facility]) Naltrexone 112 MG/ML Injectable Suspension [Vivitrol] Vivitrol 380 MG Vivitrol 380 MG 04/28/2020 12:00:00 AM EDT 4.0 {ml} suspended Vivitrol 380 MG eCW1 ([facility]) Naltrexone 112 MG/ML Injectable Suspension [Vivitrol] Vivitrol 380 MG Vivitrol 380 MG 04/28/2020 12:00:00 AM EDT 4.0 {ml} suspended Vivitrol 380 MG eCW1 ([facility]) Naltrexone 112 MG/ML Injectable Suspension [Vivitrol] Vivitrol 380 MG Vivitrol 380 MG 04/28/2020 12:00:00 AM EDT 4.0 {ml} active Vivitrol 380 MG eCW1 ([facility]) Naltrexone 112 MG/ML Injectable Suspension [Vivitrol] Vivitrol 380 MG Vivitrol 380 MG 04/28/2020 12:00:00 AM EDT 4.0 {ml} active Vivitrol 380 MG eCW1 ([facility]) Naltrexone 112 MG/ML Injectable Suspension [Vivitrol] Vivitrol 380 MG Vivitrol 380 MG 04/28/2020 12:00:00 AM EDT 4.0 {ml} active Vivitrol 380 MG eCW1 ([facility]) Naltrexone hydrochloride 50 MG Oral Tablet Naltrexone HCl 50 MG Naltrexone HCl 50 MG 02/21/2020 12:00:00 AM EDT 1.0 {tablet} activ e Naltrexone HCl 50 MG eCW1 ([facility]) Acamprosate calcium 333 MG Delayed Relea se Oral Tablet Acamprosate Calcium 333 MG Acamprosate Calcium 333 MG 02/21/2020 12:00:00 AM EDT 2.0 {table ts} active Acamprosate Calcium 333 MG eCW1 ([facility]) Naltrexone hydrochloride 50 MG Oral Tablet Naltrexone HCl 50 MG Naltrexone HCl 50 MG 02/21/2020 12:00:00 AM EDT 1.0 {tablet} activ e Naltrexone HCl 50 MG eCW1 ([facility]) Naltrexone hydrochloride 50 MG Oral Tablet Naltrexone HCl 50 MG Naltrexone HCl 50 MG 02/21/2020 12:00:00 AM EDT 1.0 {tablet} activ e Naltrexone HCl 50 MG eCW1 ([facility]) Naltrexone hydrochloride 50 MG Oral Tablet Naltrexone HCl 50 MG Naltrexone HCl 50 MG 02/21/2020 12:00:00 AM EDT 1.0 {tablet} activ e Naltrexone HCl 50 MG eCW1 ([facility]) Naltrexone hydrochloride 50 MG Oral Tablet Naltrexone HCl 50 MG Naltrexone HCl 50 MG 02/21/2020 12:00:00 AM EDT 1.0 {tablet} activ e Naltrexone HCl 50 MG eCW1 ([facility]) Acamprosate calcium 333 MG Delayed Relea se Oral Tablet Acamprosate Calcium 333 MG Acamprosate Calcium 333 MG 02/21/2020 12:00:00 AM EDT 2.0 {table ts} active Acamprosate Calcium 333 MG eCW1 ([facility]) Acamprosate calcium 333 MG Delayed Relea se Oral Tablet Acamprosate Calcium 333 MG Acamprosate Calcium 333 MG 02/21/2020 12:00:00 AM EDT active 2 tablets eCW1 ([facility]) Acamprosate calcium 333 MG Delayed Relea se Oral Tablet Acamprosate Calcium 333 MG Acamprosate Calcium 333 MG 02/21/2020 12:00:00 AM EDT 2.0 {table ts} active Acamprosate Calcium 333 MG eCW1 ([facility]) Naltrexone hydrochloride 50 MG Oral Tablet Naltrexone HCl 50 MG Naltrexone HCl 50 MG 02/21/2020 12:00:00 AM EDT 1.0 {tablet} suspe nded Naltrexone HCl 50 MG eCW1 ([facility]) Acamprosate calcium 333 MG Delayed Relea se Oral Tablet Acamprosate Calcium 333 MG Acamprosate Calcium 333 MG 02/21/2020 12:00:00 AM EDT 2.0 {table ts} active Acamprosate Calcium 333 MG eCW1 ([facility]) Acamprosate calcium 333 MG Delayed Relea se Oral Tablet Acamprosate Calcium 333 MG Acamprosate Calcium 333 MG 02/21/2020 12:00:00 AM EDT 2.0 {table ts} active Acamprosate Calcium 333 MG eCW1 ([facility]) Naltrexone hydrochloride 50 MG Oral Tablet Naltrexone HCl 50 MG Naltrexone HCl 50 MG 02/21/2020 12:00:00 AM EDT 1.0 {tablet} suspe nded Naltrexone HCl 50 MG eCW1 ([facility]) Naltrexone hydrochloride 50 MG Oral Tablet Naltrexone HCl 50 MG Naltrexone HCl 50 MG 02/21/2020 12:00:00 AM EDT 1.0 {tablet} activ e Naltrexone HCl 50 MG eCW1 ([facility]) Naltrexone hydrochloride 50 MG Oral Tablet Naltrexone HCl 50 MG Naltrexone HCl 50 MG 02/21/2020 12:00:00 AM EDT active 1 tablet eCW1 ([facility]) Acamprosate calcium 333 MG Delayed Relea se Oral Tablet Acamprosate Calcium 333 MG Acamprosate Calcium 333 MG 02/21/2020 12:00:00 AM EDT 2.0 {table ts} active Acamprosate Calcium 333 MG eCW1 ([facility]) Acamprosate calcium 333 MG Delayed Relea se Oral Tablet Acamprosate Calcium 333 MG Acamprosate Calcium 333 MG 02/21/2020 12:00:00 AM EDT 2.0 {table ts} active Acamprosate Calcium 333 MG eCW1 ([facility]) Acamprosate calcium 333 MG Delayed Relea se Oral Tablet Acamprosate Calcium 333 MG Acamprosate Calcium 333 MG 02/21/2020 12:00:00 AM EDT 2.0 {table ts} active Acamprosate Calcium 333 MG eCW1 ([facility]) Acamprosate calcium 333 MG Delayed Relea se Oral Tablet Acamprosate Calcium 333 MG Acamprosate Calcium 333 MG 02/21/2020 12:00:00 AM EDT 2.0 {table ts} active Acamprosate Calcium 333 MG eCW1 ([facility]) Naltrexone hydrochloride 50 MG Oral Tablet Naltrexone HCl 50 MG Naltrexone HCl 50 MG 02/21/2020 12:00:00 AM EDT 1.0 {tablet} suspe nded Naltrexone HCl 50 MG eCW1 ([facility]) Naltrexone hydrochloride 50 MG Oral Tablet Naltrexone HCl 50 MG Naltrexone HCl 50 MG 02/21/2020 12:00:00 AM EDT 1.0 {tablet} activ e Naltrexone HCl 50 MG eCW1 ([facility]) Acamprosate calcium 333 MG Delayed Relea se Oral Tablet Acamprosate Calcium 333 MG Acamprosate Calcium 333 MG 02/21/2020 12:00:00 AM EDT 2.0 {table ts} active Acamprosate Calcium 333 MG eCW1 ([facility]) Acamprosate calcium 333 MG Delayed Relea se Oral Tablet Acamprosate Calcium 333 MG Acamprosate Calcium 333 MG 02/21/2020 12:00:00 AM EDT 2.0 {table ts} active Acamprosate Calcium 333 MG eCW1 ([facility]) Naltrexone hydrochloride 50 MG Oral Tablet Naltrexone HCl 50 MG Naltrexone HCl 50 MG 02/21/2020 12:00:00 AM EDT 1.0 {tablet} suspe nded Naltrexone HCl 50 MG eCW1 ([facility]) Disulfiram 250 MG Oral Tablet Disulfiram 250 MG 02/13/2020 12:00:00 AM EDT 1.0 {tablet} suspended Disulfiram 250 MG eC W1 ([facility]) Disulfiram 250 MG Oral Tablet Disulfiram 250 MG 02/13/2020 12:00:00 AM EDT 1.0 {tablet} suspended Disulfiram 250 MG eC W1 ([facility]) Disulfiram 250 MG Oral Tablet Disulfiram 250 MG 02/13/2020 12:00:00 AM EDT 1.0 {tablet} suspended Disulfiram 250 MG eC W1 ([facility]) Disulfiram 250 MG Oral Tablet Disulfiram 250 MG 02/13/2020 12:00:00 AM EDT 1.0 {tablet} active Disulfiram 250 MG eCW1 ([facility]) Disulfiram 250 MG Oral Tablet Disulfiram 250 MG 02/13/2020 12:00:00 AM EDT 1.0 {tablet} suspended Disulfiram 250 MG eC W1 ([facility]) Disulfiram 250 MG Oral Tablet Disulfiram 250 MG 02/13/2020 12:00:00 AM EDT 1.0 {tablet} suspended Disulfiram 250 MG eC W1 ([facility]) Disulfiram 500 MG Oral Tablet Disulfiram 500 MG 02/13/2020 12:00:00 AM EDT 1.0 {tablet} active Disulfiram 500 MG eCW1 ([facility]) Disulfiram 250 MG Oral Tablet Disulfiram 250 MG 02/13/2020 12:00:00 AM EDT 1.0 {tablet} suspended Disulfiram 250 MG eC W1 ([facility]) Disulfiram 250 MG Oral Tablet Disulfiram 250 MG 02/13/2020 12:00:00 AM EDT 1.0 {tablet} suspended Disulfiram 250 MG eC W1 ([facility]) Disulfiram 250 MG Oral Tablet Disulfiram 250 MG 02/13/2020 12:00:00 AM EDT 1.0 {tablet} suspended Disulfiram 250 MG eC W1 ([facility]) Disulfiram 250 MG Oral Tablet Disulfiram 250 MG 02/13/2020 12:00:00 AM EDT 1.0 {tablet} suspended Disulfiram 250 MG eC W1 ([facility]) Disulfiram 250 MG Oral Tablet Disulfiram 250 MG 02/13/2020 12:00:00 AM EDT 1.0 {tablet} suspended Disulfiram 250 MG eC W1 ([facility]) Disulfiram 250 MG Oral Tablet Disulfiram 250 MG 02/13/2020 12:00:00 AM EDT 1.0 {tablet} suspended Disulfiram 250 MG eC W1 ([facility]) Ondansetron 4 MG Disintegrating Oral Tablet Ondansetron 12/27/2019 12:00:00 AM EST active MEDENT ([facility], [facility]) Comfort Lancets - Comfort Lancets - 11/19/2019 12:00:00 AM EST active Comfort Lancets - eCW1 ([facility]) Comfort Lancets - Comfort Lancets - 11/19/2019 12:00:00 AM EST active Comfort Lancets - eCW1 ([facility]) Comfort Lancets - Comfort Lancets - 11/19/2019 12:00:00 AM EST active Comfort Lancets - eCW1 ([facility]) Glucose Monitor - UNK 11/19/2019 12:00:00 AM EST active as directed eCW1 ([facility]) Glucose Monitor - UNK 11/19/2019 12:00:00 AM EST active Glucose Monitor - eCW1 ([facility]) Test Strips - UNK 11/19/2019 12:00:00 AM EST acti ve Test Strips - eCW1 ([facility]) Test Strips - UNK 11/19/2019 12:00:00 AM EST acti ve Test Strips - eCW1 ([facility]) Test Strips - UNK 11/19/2019 12:00:00 AM EST acti ve Test Strips - eCW1 ([facility]) Metformin hydrochloride 1000 MG Oral Tablet Metformin HCl 1000 MG Metformin HCl 1000 MG 11/19/2019 12:00:00 AM EST 1.0 {tablet_with_a_meal} active Metformin HCl 1000 MG eCW1 ([facility]) Comfort Lancets - Comfort Lancets - 11/19/2019 12:00:00 AM EST active Comfort Lancets - eCW1 ([facility]) Glucose Monitor - UNK 11/19/2019 12:00:00 AM EST active Glucose Monitor - eCW1 ([facility]) Metformin hydrochloride 1000 MG Oral Tablet Metformin HCl 1000 MG Metformin HCl 1000 MG 11/19/2019 12:00:00 AM EST 1.0 {tablet_with_a_meal} active Metformin HCl 1000 MG eCW1 ([facility]) Comfort Lancets - Comfort Lancets - 11/19/2019 12:00:00 AM EST active Comfort Lancets - eCW1 ([facility]) Metformin hydrochloride 1000 MG Oral Tablet Metformin HCl 1000 MG Metformin HCl 1000 MG 11/19/2019 12:00:00 AM EST 1.0 {tablet_with_a_meal} active Metformin HCl 1000 MG eCW1 ([facility]) Test Strips - UNK 11/19/2019 12:00:00 AM EST acti ve Test Strips - eCW1 ([facility]) Test Strips - UNK 11/19/2019 12:00:00 AM EST acti ve Test Strips - eCW1 ([facility]) Metformin hydrochloride 1000 MG Oral Tablet Metformin HCl 1000 MG Metformin HCl 1000 MG 11/19/2019 12:00:00 AM EST 1.0 {tablet_with_a_meal} active Metformin HCl 1000 MG eCW1 ([facility]) Metformin hydrochloride 1000 MG Oral Tablet Metformin HCl 1000 MG Metformin HCl 1000 MG 11/19/2019 12:00:00 AM EST 1.0 {tablet_with_a_meal} active Metformin HCl 1000 MG eCW1 ([facility]) Test Strips - UNK 11/19/2019 12:00:00 AM EST acti ve Test Strips - eCW1 ([facility]) Comfort Lancets - Comfort Lancets - 11/19/2019 12:00:00 AM EST active Comfort Lancets - eCW1 ([facility]) Glucose Monitor - UNK 11/19/2019 12:00:00 AM EST active Glucose Monitor - eCW1 ([facility]) Comfort Lancets - Comfort Lancets - 11/19/2019 12:00:00 AM EST active Comfort Lancets - eCW1 ([facility]) Metformin hydrochloride 1000 MG Oral Tablet Metformin HCl 1000 MG Metformin HCl 1000 MG 11/19/2019 12:00:00 AM EST 1.0 {tablet_with_a_meal} active Metformin HCl 1000 MG eCW1 ([facility]) Glucose Monitor - UNK 11/19/2019 12:00:00 AM EST active Glucose Monitor - eCW1 ([facility]) Comfort Lancets - Comfort Lancets - 11/19/2019 12:00:00 AM EST active as directed eCW1 ([facility]) Metformin hydrochloride 1000 MG Oral Tablet Metformin HCl 1000 MG Metformin HCl 1000 MG 11/19/2019 12:00:00 AM EST 1.0 {tablet_with_a_meal} active Metformin HCl 1000 MG eCW1 ([facility]) Metformin hydrochloride 1000 MG Oral Tablet Metformin HCl 1000 MG Metformin HCl 1000 MG 11/19/2019 12:00:00 AM EST 1.0 {tablet_with_a_meal} active Metformin HCl 1000 MG eCW1 ([facility]) Glucose Monitor - UNK 11/19/2019 12:00:00 AM EST active Glucose Monitor - eCW1 ([facility]) Glucose Monitor - UNK 11/19/2019 12:00:00 AM EST active Glucose Monitor - eCW1 ([facility]) Test Strips - UNK 11/19/2019 12:00:00 AM EST acti ve Test Strips - eCW1 ([facility]) Comfort Lancets - Comfort Lancets - 11/19/2019 12:00:00 AM EST active Comfort Lancets - eCW1 ([facility]) Glucose Monitor - UNK 11/19/2019 12:00:00 AM EST active Glucose Monitor - eCW1 ([facility]) Test Strips - UNK 11/19/2019 12:00:00 AM EST acti ve Test Strips - eCW1 ([facility]) Comfort Lancets - Comfort Lancets - 11/19/2019 12:00:00 AM EST active Comfort Lancets - eCW1 ([facility]) Comfort Lancets - Comfort Lancets - 11/19/2019 12:00:00 AM EST active Comfort Lancets - eCW1 ([facility]) Glucose Monitor - UNK 11/19/2019 12:00:00 AM EST active Glucose Monitor - eCW1 ([facility]) Test Strips - UNK 11/19/2019 12:00:00 AM EST acti ve as directed eCW1 ([facility]) Test Strips - UNK 11/19/2019 12:00:00 AM EST acti ve Test Strips - eCW1 ([facility]) Metformin hydrochloride 1000 MG Oral Tablet Metformin HCl 1000 MG Metformin HCl 1000 MG 11/19/2019 12:00:00 AM EST 1.0 {tablet_with_a_meal} active Metformin HCl 1000 MG eCW1 ([facility]) Metformin hydrochloride 1000 MG Oral Tablet Metformin HCl 1000 MG Metformin HCl 1000 MG 11/19/2019 12:00:00 AM EST 1.0 {tablet_with_a_meal} active Metformin HCl 1000 MG eCW1 ([facility]) Glucose Monitor - UNK 11/19/2019 12:00:00 AM EST active Glucose Monitor - eCW1 ([facility]) Comfort Lancets - Comfort Lancets - 11/19/2019 12:00:00 AM EST active Comfort Lancets - eCW1 ([facility]) Metformin hydrochloride 1000 MG Oral Tablet Metformin HCl 1000 MG Metformin HCl 1000 MG 11/19/2019 12:00:00 AM EST 1.0 {tablet_with_a_meal} active Metformin HCl 1000 MG eCW1 ([facility]) Glucose Monitor - UNK 11/19/2019 12:00:00 AM EST active Glucose Monitor - eCW1 ([facility]) Comfort Lancets - Comfort Lancets - 11/19/2019 12:00:00 AM EST active Comfort Lancets - eCW1 ([facility]) Test Strips - UNK 11/19/2019 12:00:00 AM EST acti ve Test Strips - eCW1 ([facility]) Metformin hydrochloride 1000 MG Oral Tablet Metformin HCl 1000 MG Metformin HCl 1000 MG 11/19/2019 12:00:00 AM EST 1.0 {tablet_with_a_meal} active Metformin HCl 1000 MG eCW1 ([facility]) Glucose Monitor - UNK 11/19/2019 12:00:00 AM EST active Glucose Monitor - eCW1 ([facility]) Test Strips - UNK 11/19/2019 12:00:00 AM EST acti ve Test Strips - eCW1 ([facility]) Metformin hydrochloride 1000 MG Oral Tablet Metformin HCl 1000 MG Metformin HCl 1000 MG 11/19/2019 12:00:00 AM EST active 1 tablet with a meal eCW1 ([facility]) Glucose Monitor - UNK 11/19/2019 12:00:00 AM EST active Glucose Monitor - eCW1 ([facility]) Test Strips - UNK 11/19/2019 12:00:00 AM EST acti ve Test Strips - eCW1 ([facility]) 500 mg 11/14/2019 12:00:00 AM EST tablet 30 TAKE ONE TABLET BY MOUTH EVERY DAY AT 6:00PM TAKE ONE TABLET BY MOUTH EVERY DAY AT 6:00PM SOLD: 11/14/2019 [facility] Insurance Providers Payer name Policy type / Coverage type Policy ID Covered alliance party ID Covered alliance party's relationship to woody Policy Woody Plan Information [facility] [id number] SP [id number] [facility] [id number] SP [id number] [facility] [id number] SP [id number] ANSI-Commercial [id number] ANSI-Commercial [id number] ANSI-Commercial [id number] ANSI-Commercial [id number] ANSI-Commercial [id number] ANSI-Commercial [id number] [facility] [id number] S [id number] ANSI-Commercial [id number] ANSI-Commercial [id number] [facility] [id number] S [id number] ANSI-Commercial [id number] ANSI-Commercial [id number] ANSI-Commercial [id number] ANSI-Commercial [id number] ANSI-Commercial [id number] ANSI-Commercial [id number] ANSI-Commercial [id number] ANSI-Commercial [id number] ANSI-Commercial [id number] ANSI-Commercial [id number] ANSI-Commercial [id number] ANSI-Commercial [id number] [employer] [id number] SP [id number] [employer] [id number] 18 [id number] ANSI-Commercial [id number] [employer]/[facility] (HMO) [id number] Self [id number] UMR U [id number] Self [id number] R [facility] [id number] SP [id number] [employer] [id number] Self [id number] [employer]CS Ppo Commercial [id number] Self [id number] [employer] [id number] SP [id number] [employer] PPO O [id number] O [id number] [employer] Risk MNGT (WC) Workers Compensation Self [employer]ISK [employer]NAG[employer] O [id number] S [id number] [facility] [id number] FA2 [id number] [facility] [id number] FA2 [id number] [employer] OUTPATIENT CLAIM [id number] FA2 [id number] [employer] Risk MNGT (WC) Workers Compensation Self Problems, Conditions, and Diagnoses Code Display Name Description Problem Type Effective Dates Data Source(s) E11.65 [id number] Type 2 diabetes mellitus with hyperglycem ia Problem 12/18/2020 12:00:00 AM EST eCW1 ([facility]) Z79.4 [id number] MCFP (current) use of insulin Proble m 08/17/2020 12:00:00 AM EDT eCW1 ([facility]) E80.6 [id number] Hyperbilirubinemia Problem 08/17/2020 12:00: 00 AM EDT eCW1 ([facility]) E11.9 [id number] Type 2 diabetes mellitus without complica tions Problem 08/17/2020 12:00:00 AM EDT eCW1 ([facility]) E11.9 [id number] Type 2 diabetes lorenza itus without complication, without long-term current use of insulin Problem 11/19/2019 12:00:00 AM EST eCW1 ([facility]) E11.9 [id number] Type 2 diabetes lorenza itus without complication, without long-term current use of insulin Problem 11/19/2019 12:00:00 AM EST eCW1 ([facility]) Z5189 Encounter for other specified aftercare Encounter for other specified aftercare Diagnosis 06/17/2020 01:37:00 PM EDT [facility] Surgeries/Procedures Procedure Description Date Indications Data Source(s) Naltrexone 380mg 10/30/2020 12:00:00 AM EST eCW1 ([facility]) Immunization: Flublok Quadrivalent (18 years & older) 0.5mL IM (Influenza) 08/17/2020 12:00:00 AM EDT eCW1 ([facility]) PNEUMOCOCCAL POLYSAC VACCINE 23-V 2 />YR SUBQ/IM 08/17 12:00:00 AM EDT eCW1 ([facility]) Results ID Date Data Source LIVER PROFILE 08/24/2020 09:59:39 AM EDT eCW1 ([facility]) Name Value Range Interpretation Code Description Data Sindy rce(s) Supporting Document(s) 34 eCW1 ([facility]) 1.5 eCW1 ([facility]) 95 eCW1 ([facility]) 90 eCW1 ([facility]) 7.6 eCW1 ([facility]) 4.3 eCW1 ([facility]) 0.4 eCW1 ([facility]) 1.3 eCW1 ([facility]) ID Date Data Source WILVER TITER & PATTERN 08/24/2020 09:59:39 AM EDT eCW1 ([facility]) Name Value Range Interpretation Code Description Data Sindy rce(s) Supporting Document(s) Negative eCW1 ([facility]) ID Date Data Source TOTAL IRON BINDING CAPACIT 08/24/2020 09:59:39 AM EDT eCW1 ( [facility]) Name Value Range Interpretation Code Description Data Sindy rce(s) Supporting Document(s) 69 eCW1 ([facility]) 374 eCW1 ([facility]) 18.4 eCW1 ([facility]) ID Date Data Source HEPATITIS C ANTIBODY INDEX 08/24/2020 09:59:39 AM EDT eCW1 ( [facility]) Name Value Range Interpretation Code Description Data Sindy rce(s) Supporting Document(s) 0.1 eCW1 ([facility]) ID Date Data Source HEPATITIS B SURFACE ANTIGEN 08/24/2020 09:59:39 AM EDT eCW1 ([facility]) Name Value Range Interpretation Code Description Data Sindy rce(s) Supporting Document(s) NEGATIVE eCW1 ([facility]) ID Date Data Source ANTI-SMOOTH MUSCLE ANTIBODY 08/24/2020 09:59:38 AM EDT eCW1 ([facility]) Name Value Range Interpretation Code Description Data Sindy rce(s) Supporting Document(s) 2 eCW1 ([facility]) ID Date Data Source TRANSFERRIN 08/24/2020 09:59:38 AM EDT eCW1 ([facility]) Name Value Range Interpretation Code Description Data Sindy rce(s) Supporting Document(s) 295 eCW1 ([facility]) ID Date Data Source CERULOPLASMIN 08/24/2020 09:59:38 AM EDT eCW1 ([facility]) Name Value Range Interpretation Code Description Data Sindy rce(s) Supporting Document(s) 23.1 eCW1 ([facility]) ID Date Data Source [id number] 06/22/2020 12:05:00 AM EDT [facility] Name Value Range Interpretation Code Description Data Sindy rce(s) Supporting Document(s) Insulin 2.3 uIU/mL 2.6-24.9 Below low normal [facility] ID Date Data Source [id number] 06/22/2020 07:05:00 PM EDT [facility] Name Value Range Interpretation Code Description Data Sindy rce(s) Supporting Document(s) Antipancreatic Islet Cells Negative Neg:<1:1 [facility] ID Date Data Source [id number] 06/25/2020 02:07:00 PM EDT [facility] Name Value Range Interpretation Code Description Data Sindy rce(s) Supporting Document(s) KEVIN-65 0.0-5.0 [facility] ID Date Data Source [id number] 06/22/2020 12:05:00 AM EDT [facility] Name Value Range Interpretation Code Description Data Sindy rce(s) Supporting Document(s) Please note [facility] The date recorded on the requisition ind icates the sample(s) receivedwere greater than 72 hours old upon arrival in our laboratory. ID Date Data Source [id number] 06/16/2020 08:55:00 AM EDT [facility] Name Value Range Interpretation Code Description Data Sindy rce(s) Supporting Document(s) Cholesterol [Mass/volume] in Serum or Plasma 118 mg/dL [facility] Triglyceride [Mass/volume] in Serum or Plasma 194 mg/dL [facility] Cholesterol in HDL [Mass/volume] in Serum or Plasma 39 mg/dL [facility] \\BLDo\\INTERPRE TATION\\BLDx\\ REFERENCE RANGES (NATIONAL CHOLESTEROL EDUCATION PROGRAM) CHOLESTEROL < 200 mg/dL DESIREABLE 200 - 239 mg/dL BORDERLINE HIGH > 240 mg/dL HIGH TRIGLYCERIDES < 150 mg/dL DESIREABLE 150 - 199 mg/dL BORDERLINE HIGH 200 - 499 mg/dL HIGH > or = 500 mg/dL VERY HIGH HDL > or = 60 mg/dL HIGH < 40 mg/dL LOW LDL < 100 mg/dL DESIREABLE 100 - 129 mg/dL LOW RISK 130 - 159 mg/dL BORDERLINE HIGH 160 - 189 mg/dL HIGH > or = 190 mg/dL VERY HIGH Cholesterol in LDL [Mass/volume] in Serum or Plasma by calculation 40 mg/dL [facility] CHOL/HDL 3.03 [facility] l \\BLDo\\INTERPRE TATION\\BLDx\\ REFERENCE RANGES (NATIONAL CHOLESTEROL EDUCATION PROGRAM) CHOLESTEROL < 200 mg/dL DESIREABLE 200 - 239 mg/dL BORDERLINE HIGH > 240 mg/dL HIGH TRIGLYCERIDES < 150 mg/dL DESIREABLE 150 - 199 mg/dL BORDERLINE HIGH 200 - 499 mg/dL HIGH > or = 500 mg/dL VERY HIGH HDL > or = 60 mg/dL HIGH < 40 mg/dL LOW LDL < 100 mg/dL DESIREABLE 100 - 129 mg/dL LOW RISK 130 - 159 mg/dL BORDERLINE HIGH 160 - 189 mg/dL HIGH > or = 190 mg/dL VERY HIGH ID Date Data Source [id number] 06/16/2020 08:55:00 AM EDT [facility] Name Value Range Interpretation Code Description Data Sindy rce(s) Supporting Document(s) COMPREHENSIVE CHEM PROFILE [facility] COMPREHENSIVE METABOLIC PANEL Sodium [Moles/volume] in Serum or Plasma 135 mEq/L 136 - 145 Below low normal [facility] Potassium [Moles/volume] in Serum or Plasma 3.6 mEq/L 3.5 - 5.1 [facility] Chloride [Moles/volume] in Serum or Plasma 98 mEq/L 98 - 107 [facility] Carbon dioxide, total [Moles/volume] in Serum or Plasma 26.0 mEq /L 21.0 - 32.0 [facility] Glucose [Mass/volume] in Serum or Plasma 385 mg/dL 70 - 10 0 Above upper panic limits [facility] FRIDA L. @ 1513CONFIRMED BY REPEAT TESTI NGYES Urea nitrogen [Mass/volume] in Serum or Plasma 10 mg/dL 7 - 18 [facility] CREATININE SERUM 0.93 mg/dL 0.70 - 1.30 [facility] AGE 29 yrs [facility] l HEIGHT NA [facility] eGFR NON-AFR AMR >60 [facility] eGFR AFR AMR >60 [facility] ital BUN/CREAT 11 6 - 25 [facility] Protein [Mass/volume] in Serum or Plasma 6.9 g/dL 6.0 - 8.3 [facility] Albumin [Mass/volume] in Serum or Plasma 4.5 g/dL 3.8 - 5.4 [facility] GLOBULIN 2.4 g/dL 2.0 - 4.0 [facility] l A/G RATIO 1.9 0.8 - 2.0 [facility] l Calcium [Mass/volume] in Serum or Plasma 9.2 mg/dL 8.8 - 10.2 [facility] Bilirubin.total [Mass/volume] in Serum or Plasma 1.9 mg/dL 0.2 - 1.0 Above upper panic limits [facility] FRIDA L. @ 1513CONFIRMED BY REPEAT TESTI [place] Bilirubin.direct [Mass/volume] in Serum or Plasma 0.3 mg/dL 0.0 - 0.2 Above high normal [facility] INDIRECT BILI 1.6 mg/dL 0.0 - 1.1 Above high normal [facility] ALK PHOSPHATASE 116 U/L 40 - 129 [facility] ospital Aspartate aminotransferase [Enzymatic ac tivity/volume] in Serum or Plasma by With P-5'-P 38 IU/L 7 - 37 Above high normal [facility] ital Alanine aminotransferase [Enzymatic acti vity/volume] in Serum or Plasma by With P-5'-P 108 IU/L 12 - 78 Above high normal [facility] ayad ANION GAP 11 7 - 15 [facility] l Estimated GFR referenc e range: >60ml/min/1.73m >18 years: Calculated using IDMS traceable Study Equation <18 years: Calculated using IDMS tracable Bedside Schartz Equation Procedure Social History Code Duration Value Status Description Data Source(s ) Smoking 12/18/2020 12:00:00 AM EST UNK completed eCW1 ([facility]) Smoking 10/23/2020 12:00:00 AM EST UNK completed eCW1 ([facility]) Smoking 10/23/2020 12:00:00 AM EST UNK completed eCW1 ([facility]) Smoking 10/23/2020 12:00:00 AM EST UNK completed eCW1 ([facility]) Smoking 08/24/2020 12:00:00 AM EDT UNK completed eCW1 ([facility]) Smoking 08/24/2020 12:00:00 AM EDT UNK completed eCW1 ([facility]) Smoking 08/17/2020 12:00:00 AM EDT UNK completed eCW1 ([facility]) Smoking 04/28/2020 12:00:00 AM EDT Never Smoker completed Never S moker eCW1 ([facility]) Smoking 04/28/2020 12:00:00 AM EDT Never Smoker completed Never S moker eCW1 ([facility]) Smoking 04/28/2020 12:00:00 AM EDT Never Smoker completed Never S moker eCW1 ([facility]) Smoking 04/28/2020 12:00:00 AM EDT Never Smoker completed Never S moker eCW1 ([facility]) Vital Signs ID Date Data Source UNK Name Value Range Interpretation Code Description Data Source(s) Diastolic blood pressure 72 mm[Hg] 72 mm[Hg] eCW1 ([facility]) Systolic blood pressure 112 mm[Hg] 112 mm[Hg] e CW1 ([facility]) Body temperature 96.7 [degF] 96.7 [degF] eCW1 ( [facility]) Respiratory rate 17 /min 17 /min eCW1 ([facility]) Heart rate 92 /min 92 /min eCW1 ([facility]) Body mass index (BMI) [Ratio] 31.38 kg/m2 31.38 kg/m2 W1 ([facility]) Body height 71 [in_i] 71 [in_i] eCW1 ([facility]) Body weight 225 [lb_av] 225 [lb_av] eCW1 ([facility]) Diastolic blood pressure 88 mm[Hg] 88 mm[Hg] eCW1 ([facility]) Systolic blood pressure 142 mm[Hg] 142 mm[Hg] e CW1 ([facility]) Body temperature 97.1 [degF] 97.1 [degF] eCW1 ( [facility]) Respiratory rate 19 /min 19 /min eCW1 ([facility]) Heart rate 106 /min 106 /min eCW1 ([facility]) Body mass index (BMI) [Ratio] 30.68 kg/m2 30.68 kg/m2 eCW1 ([facility]) Body height 71 [in_i] 71 [in_i] eCW1 ([facility]) Body weight 220 [lb_av] 220 [lb_av] eCW1 ([facility]) Diastolic blood pressure 76 mm[Hg] 76 mm[Hg] eCW1 ([facility]) Systolic blood pressure 126 mm[Hg] 126 mm[Hg] e CW1 ([facility]) Body temperature 98.8 [degF] 98.8 [degF] eCW1 ( [facility]) Respiratory rate 20 /min 20 /min eCW1 ([facility]) Heart rate 76 /min 76 /min eCW1 ([facility]) Body mass index (BMI) [Ratio] 32.02 kg/m2 32.02 kg/m2 eCW1 ([facility], [facility]) Body height 71 [in_i] 71 [in_i] eCW1 ([facility]) Body weight 229.6 [lb_av] 229.6 [lb_av] eCW1 ([facility]) Body mass index (BMI) [Ratio] 30.0 kg/m2 30.0 k g/m2 MEDENT ([facility], [facility]) Body height 75 [in_i] 75 [in_i] MEDENT ([facility], [facility]) 6'3" Body weight 240.00 [lb_av] 240.00 [lb_av] MEDEN T ([facility], [facility]) Body temperature 98.2 [degF] 98.2 [degF] MEDENT ([facility], [facility]) Oxygen saturation in Arterial blood by Pulse oximetry 98 % 98 % MEDENT ([facility], [facility]) Respiratory rate 17 /min 17 /min MEDENT ( [facility], [facility]) Heart rate 103 /min 103 /min MEDENT ([facility], [facility]) Diastolic blood pressure 94 mm[Hg] 94 mm[Hg] MEDENT ([facility], [facility]) Systolic blood pressure 128 mm[Hg] 128 mm[Hg] M EDENT ([facility], [facility]) Diastolic blood pressure 84 mm[Hg] 84 mm[Hg] eCW1 ([facility], [facility]) Systolic blood pressure 122 mm[Hg] 122 mm[Hg] e CW1 ([facility], [facility]) Body temperature 98.4 [degF] 98.4 [degF] eCW1 ( [facility], [facility]) Respiratory rate 18 /min 18 /min eCW1 ([facility]) Heart rate 91 /min 91 /min eCW1 ([facility]) Body mass index (BMI) [Ratio] 33.89 kg/m2 33.89 kg/m2 eCW1 ([facility], [facility]) Body height 71 [in_us] 71 [in_us] eCW1 ([facility]) Body weight Measured 243.0 [lb_av] 243.0 [lb_av ] eCW1 ([facility], [facility]) Patient Treatment Plan of Care Planned Activity Planned Date Details Description Data Source (s) Triamcinolone Acetonide 1 MG/ML Topical Cream 12/18/2020 12:00:00 A M EST eCW1 ([facility], [facility]) Insulin Aspart 100 UNIT/ML 12/18/2020 12:00:00 AM EST eCW1 ([facility], [facility]) 3 ML Insulin Lispro 100 UNT/ML Pen Injector 11/25/2020 12:00:00 AM EST eCW1 ([facility], [facility]) BD Pen Needle Mini U/F 31G X 5 MM 08/12/2020 12:00:00 AM EDT eCW1 ([facility], [facility]) BD Pen Needle Mini U/F 31G X 5 MM 08/12/2020 12:00:00 AM EDT eCW1 ([facility], [facility]) BD Pen Needle Mini U/F 31G X 5 MM 08/12/2020 12:00:00 AM EDT eCW1 ([facility]) BD Pen Needle Mini U/F 31G X 5 MM 08/12/2020 12:00:00 AM EDT eCW1 ([facility], [facility]) BD Pen Needle Mini U/F 31G X 5 MM 08/12/2020 12:00:00 AM EDT eCW1 ([facility], [facility]) Naltrexone 112 MG/ML Injectable Suspension [Vivitrol] 04/28/2020 12:00:00 AM EDT eCW1 ([facility]) Naltrexone 112 MG/ML Injectable Suspension [Vivitrol] 04/28/2020 12:00:00 AM EDT eCW1 ([facility]) Naltrexone 112 MG/ML Injectable Suspension [Vivitrol] 04/28/2020 12:00:00 AM EDT eCW1 ([facility]) Naltrexone 112 MG/ML Injectable Suspension [Vivitrol] 04/28/2020 12:00:00 AM EDT eCW1 ([facility]) Naltrexone 112 MG/ML Injectable Suspension [Vivitrol] 04/28/2020 12:00:00 AM EDT eCW1 ([facility]) Naltrexone 112 MG/ML Injectable Suspension [Vivitrol] 04/28/2020 12:00:00 AM EDT eCW1 ([facility]) Naltrexone 112 MG/ML Injectable Suspension [Vivitrol] 04/28/2020 12:00:00 AM EDT eCW1 ([facility]) Naltrexone hydrochloride 50 MG Oral Tablet 02/21/2020 12:00:00 AM E DT eCW1 ([facility], [facility]) Acamprosate calcium 333 MG Delayed Release Oral Tablet 02/21/2020 12:00:00 AM EDT eCW1 ([facility]) Disulfiram 250 MG Oral Tablet 02/13/2020 12:00:00 AM EDT eCW1 ([facility], [facility]) Disulfiram 500 MG Oral Tablet 02/13/2020 12:00:00 AM EDT eCW1 ([facility], [facility]) Test Strips - 11/19/2019 12:00:00 AM EST eCW1 ([facility], [facility]) Comfort Lancets - 11/19/2019 12:00:00 AM EST eCW1 ([facility], [facility]) Test Strips - 11/19/2019 12:00:00 AM EST eCW1 ([facility], [facility]) Metformin hydrochloride 1000 MG Oral Tablet 11/19/2019 12:00:00 AM EST eCW1 ([facility]) Test Strips - 11/19/2019 12:00:00 AM EST eCW1 ([facility]) Comfort Lancets - 11/19/2019 12:00:00 AM EST eCW1 ([facility], [facility]) Glucose Monitor - 11/19/2019 12:00:00 AM EST eCW1 ([facility], [facility])
[2021-01-07 09:59] VITALS: BP 138/74
== END 2021-01-07 09:55 | disposition home or self-care (01) ==
LOC: M ED 08:07
DX: F18.10 Inhalant abuse, uncomplicated (principal); E11.9 Type 2 diabetes mellitus without complications; F17.200 Nicotine dependence, unspecified, uncomplicated; F10.10 Alcohol abuse, uncomplicated; Z88.0 Allergy status to penicillin

== ENCOUNTER → 2021-01-08 | Outpatient (CLI) | payer OTHER ==
[~2021-01-08] MED LIST changes: +INSU100I9; +LANTINJ4; +VIVI380I
== END ==
LOC: M OUTALCOH 07:55
PROVIDERS: ATTEND Psychiatry & Neurology Psychiatry
DX: F10.20 Alcohol dependence, uncomplicated (principal)

== ENCOUNTER 2021-02-03 10:37 | Outpatient (RCR) | payer OTHER | END 2021-02-10 | LOC: M OUTALCOH 10:37 | PROVIDERS: ATTEND Psychiatry & Neurology Psychiatry | DX: F10.20 Alcohol dependence, uncomplicated (principal); Z72.0 Tobacco use; F18.20 Inhalant dependence, uncomplicated ==

== ENCOUNTER 2021-06-01 17:08 | Emergency (ER) | payer OTHER ==
[~2021-06-01] VITALS: Ht 188 cm; Wt 95.5 kg
[2021-06-01] MEDS ORDERED: INSU100I16 (17:24)
[2021-06-01] MEDS ORDERED: BASA100I (17:24)
[2021-06-01] MEDS ORDERED: FLUORESCEIN OPHTH 1 MG STRIP OD ONE (18:05)
[2021-06-01] MEDS ORDERED: TETRACAINE 0.5% OPHTH SOLN 4ML OD ONE (18:05)
[2021-06-01] MEDS ORDERED: VIGA0.02 OD (19:14)
[2021-06-01] MEDS ORDERED: HYDR-3713 PO (19:14)
[2021-06-01 19:29] VITALS: BP 117/68
== END 2021-06-01 19:31 | disposition home or self-care (01) ==
LOC: M ED 17:08
DX: H16.001 Unspecified corneal ulcer, right eye (principal); H57.11 Ocular pain, right eye; E11.9 Type 2 diabetes mellitus without complications; Z79.4 Long term (current) use of insulin; Z88.0 Allergy status to penicillin

== ENCOUNTER → 2021-12-01 | Outpatient (CLI) | payer OTHER ==
[~2021-12-01] MED LIST changes: +BASA100I; +HYDR-3713 PO; +INSU100I16; -LEVO500T3 PO; +LEVO500T4 PO; +VIGA0.02 OD
[2021-12-01 09:45] LABS: BASO # 0.1 10^3/uL (0.0-0.2); BASO % 1.9 % (0.0-1.0); EOS # 0.2 10^3/uL (0.0-0.5); HEMATOCRIT 49.9 % (42.0-52.0); HEMOGLOBIN 17.4 g/dl (13.5-17.5); LYMPH # 2.2 10^3/uL (1.5-5.0); LYMPH % 32.5 % (24.0-44.0); MEAN CORPUSCULAR HEMOGLOBIN 28.7 pg (27.0-33.0); MEAN CORPUSCULAR HGB CONC 34.9 g/dl (32.0-36.5); MEAN CORPUSCULAR VOLUME 82.2 fl (80.0-96.0); MONO # 0.5 10^3/uL (0.0-0.8); MONO % 6.7 % (2.0-8.0); NEUTROPHILS # 3.7 10^3/uL (1.5-8.5); NEUTROPHILS % 55.3 % (36.0-66.0); PLATELET COUNT, AUTOMATED 229 10^3/uL (150-450); RED BLOOD COUNT 6.07 10^6/uL (4.30-6.10); WHITE BLOOD COUNT 6.7 10^3/uL (4.0-10.0)
[2021-12-01 10:21] LABS: HEMOGLOBIN A1c 10.5 %
[2021-12-01 10:54] LABS: ALBUMIN 4.6 GM/DL (3.2-5.2); ALT/SGPT 52 U/L (12-78); BILIRUBIN,TOTAL 3.3 MG/DL (0.2-1.0); BLOOD UREA NITROGEN 16 MG/DL (7-18); CALCIUM LEVEL 9.4 MG/DL (8.5-10.1); CARBON DIOXIDE LEVEL 28 MEQ/L (21-32); CHLORIDE LEVEL 99 MEQ/L (98-107); CHOLESTEROL LEVEL 151 MG/DL (<200); CHOLESTEROL RISK RATIO 3.595 (<5); CREATININE FOR GFR 0.99 MG/DL (0.70-1.30); GLOMERULAR FILTRATION RATE > 60.0 (>60); GLUCOSE, FASTING 356 MG/DL (70-100); HDL CHOLESTEROL 42 MG/DL (>40); LDL CHOLESTEROL 70 MG/DL (<100); NON-HDL-C 109 MG/DL; POTASSIUM SERUM 4.1 MEQ/L (3.5-5.1); SODIUM LEVEL 135 MEQ/L (136-145); TOTAL PROTEIN 7.4 GM/DL (6.4-8.2); TRIGLYCERIDES LEVEL 193 MG/DL (<150)
[2021-12-01 10:58] LABS: HEPATITIS B SURFACE ANTIGEN NEGATIVE (NEGATIVE)
[2021-12-01 11:25] LABS: HEPATITIS C VIRUS ABY INDEX < 0.0 INDEX (<0.8)
[2021-12-01 11:26] LABS: HIV 1&2 SCREEN CENTAUR NEGATIVE (NEGATIVE)
== END ==
LOC: M WUC 08:16
PROVIDERS: ATTEND Student in an Organized Health Care Education/Training Program
DX: F10.10 Alcohol abuse, uncomplicated (principal); E11.9 Type 2 diabetes mellitus without complications

== ENCOUNTER → 2023-04-26 | Outpatient (CLI) | payer OTHER ==
[~2023-04-26] MED LIST changes: +LEVO1TAB39 PO; -LEVO500T4 PO
[2023-04-26 15:58] LABS: ALBUMIN 4.3 G/DL (3.2-5.2); ALKALINE PHOSPHATASE 94 U/L (46-116); ALT/SGPT 59 U/L (7.0-40); AST/SGOT 19 U/L (<34); BILIRUBIN,TOTAL 2.5 MG/DL (0.3-1.2); BLOOD UREA NITROGEN 17 MG/DL (9-23); CALCIUM LEVEL 9.2 MG/DL (8.5-10.1); CARBON DIOXIDE LEVEL 30 MMOL/L (20-31); CHLORIDE LEVEL 104 MMOL/L (98-107); CHOLESTEROL LEVEL 120 MG/DL (<200); CHOLESTEROL RISK RATIO 3.02 (<5); CREATININE FOR GFR 0.78 MG/DL (0.70-1.30); GLOMERULAR FILTRATION RATE > 60.0 (>60); GLUCOSE, FASTING 144 MG/DL (60-100); HDL CHOLESTEROL 39.7 MG/DL (>40); LDL CHOLESTEROL 61.3 MG/DL (<100); NON-HDL-C 80.3 MG/DL; POTASSIUM SERUM 3.8 MMOL/L (3.5-5.1); SODIUM LEVEL 140 MMOL/L (136-145); TOTAL PROTEIN 6.7 G/DL (5.7-8.2); TRIGLYCERIDES LEVEL 95 MG/DL (<150)
[2023-04-26 16:13] LABS: BASO # 0.1 10^3/uL (0.0-0.2); BASO % 1.2 % (0.0-1.0); EOS # 0.3 10^3/uL (0.0-0.5); HEMOGLOBIN 15.3 g/dl (13.5-17.5); LYMPH # 1.8 10^3/uL (1.5-5.0); LYMPH % 21.3 % (24.0-44.0); MEAN CORPUSCULAR HEMOGLOBIN 28.7 pg (27.0-33.0); MEAN CORPUSCULAR VOLUME 84.3 fl (80.0-96.0); MONO # 0.4 10^3/uL (0.0-0.8); MONO % 5.1 % (2.0-8.0); NEUTROPHILS # 5.8 10^3/uL (1.5-8.5); PLATELET COUNT, AUTOMATED 208 10^3/uL (150-450); RED BLOOD COUNT 5.34 10^6/uL (4.30-6.10); WHITE BLOOD COUNT 8.4 10^3/uL (4.0-10.0)
[2023-04-26 16:17] LABS: HEMOGLOBIN A1c 6.7 % (4.0-6.0)
[2023-04-26 16:26] LABS: MALB URINE SIEMENS < 3.0 MG/L; MAU/CREAT RATIO 1.9 MCG/MG (0.0-30.0)
== END ==
LOC: M PLALAB 13:35
PROVIDERS: ATTEND Student in an Organized Health Care Education/Training Program
DX: E11.9 Type 2 diabetes mellitus without complications (principal); E80.6 Other disorders of bilirubin metabolism

== ENCOUNTER → 2023-07-07 | Outpatient (REF) | payer OTHER ==
[~2023-07-07] MED LIST changes: +INSU100I24; -INSU100I9
== END ==
LOC: M SFHCPLAZ 15:31
PROVIDERS: ATTEND Family Medicine
DX: Z53.9 Procedure and treatment not carried out, unspecified reason (principal)

== ENCOUNTER 2024-10-15 06:31 | Emergency (ER) | payer OTHER ==
[~2024-10-15] VITALS: Ht 188 cm; Wt 94.1 kg
[~2024-10-15 06:31] MED LIST changes: +MECL-209 PO; -MECL1TAB31 PO
[2024-10-15 06:33] VITALS: BP 124/73; TEMP 97.1; O2SAT 96
[2024-10-15] MEDS: FLUORESCEIN OPHTH 1MG STRIP OU ONE (08:52)
[2024-10-15] MEDS: PROPARACAINE 0.5% OPHTH SOL 15ML OU ONE (08:52)
[2024-10-15] MEDS ORDERED: CIPR0.3S37 OP (08:57)
== END 2024-10-15 09:16 | disposition home or self-care (01) ==
LOC: M ED 06:31
DX: S05.01XA Injury of conjunctiva and corneal abrasion without foreign body, right eye, initial encounter (principal); H10.31 Unspecified acute conjunctivitis, right eye; X58.XXXA Exposure to other specified factors, initial encounter; Y92.9 Unspecified place or not applicable; Y93.9 Activity, unspecified; Y99.0 Civilian activity done for income or pay; E11.9 Type 2 diabetes mellitus without complications; I10 Essential (primary) hypertension; Z87.891 Personal history of nicotine dependence; F10.10 Alcohol abuse, uncomplicated; Z79.4 Long term (current) use of insulin; Z88.0 Allergy status to penicillin

== ENCOUNTER → 2025-05-15 | Outpatient (CLI) | payer OTHER ==
[~2025-05-15] MED LIST changes: +CIPR0.3S37 OP
[2025-05-15 11:36] LABS: BASO # 0.1 10^3/uL (0.0-0.2); BASO % 1.8 % (0.0-1.0); EOS # 0.3 10^3/uL (0.0-0.5); EOS % 4.7 % (0.0-3.0); LYMPH # 1.5 10^3/uL (1.5-5.0); LYMPH % 25.7 % (24.0-44.0); MONO # 0.5 10^3/uL (0.0-0.8); MONO % 7.8 % (2.0-8.0); NEUTROPHILS # 3.6 10^3/uL (1.5-8.5); NEUTROPHILS % 59.8 % (36.0-66.0); PLATELET COUNT, AUTOMATED 221 10^3/uL (150-450)
[2025-05-15 12:01] LABS: VITAMIN B12 LEVEL 678 PG/ML (211-911)
[2025-05-15 12:02] LABS: ALT/SGPT 42 U/L (7.0-40); AST/SGOT 24 U/L (<34); CALCIUM LEVEL 9.3 MG/DL (8.5-10.1); CARBON DIOXIDE LEVEL 28 MMOL/L (20-31); CHLORIDE LEVEL 101 MMOL/L (98-107); CHOLESTEROL LEVEL 128 MG/DL (<200); CHOLESTEROL RISK RATIO 2.68 (<5); CREATININE FOR GFR 0.63 MG/DL (0.70-1.30); GLOMERULAR FILTRATION RATE > 90.0 (>60); LDL CHOLESTEROL 69.6 MG/DL (<100); NON-HDL-C 80.4 MG/DL; POTASSIUM SERUM 4.2 MMOL/L (3.5-5.1); SODIUM LEVEL 141 MMOL/L (136-145); TRIGLYCERIDES LEVEL 54 MG/DL (<150)
== END ==
LOC: M PLALAB 09:10
PROVIDERS: ATTEND Student in an Organized Health Care Education/Training Program
DX: E80.6 Other disorders of bilirubin metabolism (principal); E11.9 Type 2 diabetes mellitus without complications; F10.10 Alcohol abuse, uncomplicated